=== PATIENT | male | born 1945 | race Caucasian/White ===

== ENCOUNTER 2016-11-16 19:13 | Inpatient (IN) | payer OTHER, MEDICARE ==
[~2016-11-16] VITALS: Ht 177.8 cm; Wt 111.8 kg
[2016-11-16 19:16] VITALS: BP 126/59; PULSE 86; RESP 20; TEMP 101; O2SAT 88
[2016-11-16 19:24] VITALS: BP 133/69; PULSE 90; RESP 20; TEMP 99.3; O2SAT 86
[2016-11-16 19:34] VITALS: RESP 20; O2SAT 86
[2016-11-16] MEDS ORDERED: METF500T PO (19:49)
[2016-11-16] MEDS ORDERED: METO100T PO (19:49)
[2016-11-16] MEDS ORDERED: POTA10TA15 PO (19:49)
[2016-11-16] MEDS ORDERED: AMLO10TA2 PO (19:49)
[2016-11-16] MEDS ORDERED: OMEP20TA PO (19:49)
[2016-11-16] MEDS ORDERED: HYDR50TA3 PO (19:49)
[2016-11-16] MEDS ORDERED: GLIP5TAB8 PO (19:49)
[2016-11-16] MEDS ORDERED: PRIM50TA5 PO ×2 (19:49)
[2016-11-16] MEDS ORDERED: GABA100C4 PO (19:49)
[2016-11-16] MEDS ORDERED: MONT10TA4 PO (19:49)
[2016-11-16] MEDS ORDERED: HYDR25TA35 PO (19:49)
--- NOTE | 2016-11-16 19:53 | PD ---
HPI Chief Complaint: Respiratory Symptoms Time Seen by Provider: 19:48 Travel History International Travel<30 days: No Contact w/Intl Traveler<30days: No Traveled to known affect area: No History of Present Illness HPI 71-year-old male that presents to the ED for evaluation of fever, cough and congestion. Patient states that he's had this since Saturday. Since Saturday his been having cough and runny nose as well as feeling unwell. Per patient she feels like "crap". Patient states that he has body aches all over. Patient was given Tylenol before coming to the ED. Patient states that he feels short of breath as well. Per patient he has difficulty taking deep breaths secondary to the cough as every time he takes a deep breath he gets more cough. He denies any chest pain. He denies abdominal pain. Nausea or vomiting. Patient denies any recent sick contacts but per he was in contact with a family member who had cold-like symptoms recently. Patient denies having a history of COPD or asthma but does state that he has bronchitis on occasion and uses inhalers for this. He has allergies to ibuprofen and lisinopril. He states that his body aches or 8 out of 10. Throughout. Mainly on the muscles. States that the only recent travel he did was to [place] recently. PFSH Past Medical History High Cholesterol: Yes Diabetes: Yes Patient Takes Glucophage: Yes Diminished Hearing: No GERD: Yes Hypertension: Yes Respiratory: Yes (bronchitis) Triglycerides - High: Yes Past Surgical History Surgical History: No Previous Surgery Other Surgery: Yes (finger skin graft) Social History Alcohol Use: Yes (beer) Tobacco Use: Yes (chewing tobacco, quit 50 yrs ago) Substance Use: No Allergies-Medications (Allergen,Severity, Reaction): Coded Allergies: Lisinopril (Verified Allergy, Severe, Swelling, 11/16/16) Ibuprofen (Verified Adverse Reaction, Intermediate, Cramping, 11/16/16) Reported Meds & Prescriptions Reported Meds & Active Scripts Active Reported Potassium Chloride Microencaps 10 Meq Tab 10 Meq PO DAILY Montelukast (Montelukast Sodium) 10 Mg Tab 10 Mg PO DAILY Primidone 50 Mg Tab 100 Mg PO DAILY@0600 Primidone 50 Mg Tab 50 Mg PO HS Hydrochlorothiazide 50 Mg Tab 50 Mg PO DAILY Glipizide 5 Mg Tab 5 Mg PO DAILY Take 30 minutes before a meal Amlodipine (Amlodipine Besylate) 10 Mg Tab 10 Mg PO DAILY Omeprazole 20 Mg Tab 20 Mg PO BID Hydralazine (Hydralazine HCl) 25 Mg Tab 25 Mg PO BID Take with a meal Gabapentin 100 Mg Cap 100 Mg PO BID Metformin (Metformin HCl) 500 Mg Tab 500 Mg PO BIDPC With meals Metoprolol Tartrate 100 Mg Tab 100 Mg PO BID Review of Systems General / Constitutional: Positive: Fever, Chills Eyes: No: Diploplia, Blurred Vision, Photophobia, Drainage, Redness, Foreign Body Sensation, Pain, Tearing, Blind Spots, Visual changes, Blindness, Other HENT: Positive: Headaches, Sore Throat, Congestion, No: Vertigo, Lightheadedness, Rhinitis, Rhinorrhea, Nosebleed, Neck Stiffness, Neck Pain, Masses, Gingival Bleeding, Dental Difficulties, Ear Discharge, Earache, Other Cardiovascular: No: Chest Pain or Discomfort, Palpitations, Irregular Rhythm, Tachycardia, Diaphoresis, Syncope, Dyspnea on exertion, Varicosities, Edema, Cyanosis, Varicosities, Phlebitis, Claudication, Other Respiratory: Positive: Cough, Shortness of Breath, Wheezing, No: Sneezing, Orthopnea, Hemoptysis, Stridor, Night Sweats, Pleuritic Pain, Other Gastrointestinal: No: Nausea, Vomiting, Diarrhea, Abdominal Pain, Hematemesis, Hematochezia, Constipation, Changes in Bowel Habits, Indigestion, Dysphagia, Loss of Appetite, Other Genitourinary: No: Urgency, Frequency, Dysuria, Nocturia, Hematuria, Decreased Urinary Output, Oliguria, Hesitancy, Dribbling, Incontinence, Pelvic Pain, Flank Pain, Dyspareunia, Discharge, Dysmenorrhea, Menorrhagia, Metorrhagia, Vaginal Bleeding, Other Musculoskeletal: Positive: Myalgias, No: Arthralgias, Limited ROM, Weakness, Cramping, Edema, Pain, Atrophy, Other Skin: No Rash, No Itching, No Dryness, No Lumps, No Hives, No Change in Pigmentation, No Change in nails, No Alopecia, No Lesions, No Breast Lumps, No Breast Tenderness, No Breast Swelling, No Other Neurologic: No: Weakness, Dizziness, Syncope, Focal Abnormalities, Coordination Problem, Tremor, Ataxia, Headache, Change in Mentation, Slurred Speech, Paresthesia, Incontinence, Seizures, Sensory Disturbance, Other Psychiatric: No: Anxiety, Depression, Suicidal Ideations, Disorder of Thought, Mood Disorder, Substance Abuse, Homicidal Ideation, Other Endocrine: No: Heat Intolerance, Cold Intolerance, Polyuria, Polydipsia, Other Hematologic/Lymphatic: No: Easy Bruising, Lymph Node Enlargement, Other Physical Exam Narrative GENERAL: Well-nourished, well-developed patient in no apparent distress. SKIN: Warm and dry. HEAD: Atraumatic. Normocephalic. EYES: Pupils equal and round reactive to light and accommodation. No scleral icterus. No injection or drainage. ENT: No nasal bleeding or discharge. Mucous membranes pink and moist. TMs are clear with no sign of infection or perforation. No mastoid tenderness. Ear canals are intact bilaterally. No lymphadenopathy. Nostril mucosa is red and moist with clear mucus noted. No sinus tenderness to palpation noted. Tonsils are not enlarged or swollen. No ulvua Deviation. Tongue is midline. NECK: Trachea midline. No JVD. No meningeal signs noted CARDIOVASCULAR: Regular rate and rhythm. RESPIRATORY: No accessory muscle use. Clear to auscultation. Breath sounds equal bilaterally. GASTROINTESTINAL: Abdomen soft, non-tender, nondistended. Hepatic and splenic margins not palpable. MUSCULOSKELETAL: Extremities without clubbing, cyanosis, or edema. No obvious deformities. NEUROLOGICAL: Awake and alert. No obvious cranial nerve deficits. Motor grossly within normal limits. Five out of 5 muscle strength in the arms and legs. Normal speech. PSYCHIATRIC: Appropriate mood and affect; insight and judgment normal. Data Data Last Documented VS Vital Signs Date Time Temp Pulse Resp B/P Pulse Ox O2 Delivery O2 Flow Rate FiO2 11/16/16 19:34 20 86 Room Air 11/16/16 19:33 4 11/16/16 19:24 99.3 90 133/69 Orders Complete Blood Count With Diff (11/16/16 19:26) Basic Metabolic Panel (Bmp) (11/16/16 19:26) Prothrombin Time / Inr (Pt) (11/16/16 19:26) Act Partial Throm Time (Ptt) (11/16/16 19:26) Arterial Blood Gas (Abg) (11/16/16 19:26) Blood Culture (11/16/16 19:26) Sputum Culture And Gram Stain (11/16/16 19:26) Influenzae A/B Antigen (11/16/16 19:26) Chest, Single Ap (11/16/16 19:26) Iv Access Insert/Monitor (11/16/16 19:26) Ecg Monitoring (11/16/16 19:26) Oxygen Administration (11/16/16 19:26) Oximetry (11/16/16 19:26) Ceftriaxone Inj (Rocephin Inj) (11/16/16 20:00) Azithromycin Inj (Zithromax Inj) (11/16/16 20:00) Ct Pulmonary Angiogram (11/16/16 ) Sodium Chlor 0.9% 1000 Ml Inj (Ns 1000 M (11/16/16 20:20) Potassium Cl 40 Meq/30 Ml Liq (Kcl 40 Me (11/16/16 20:30) Lactic Acid (11/16/16 20:28) Sodium Chlor 0.9% 1000 Ml Inj (Ns 1000 M (11/16/16 20:30) Iohexol 350 Inj (Omnipaque 350 Inj) (11/16/16 20:36) Admit Order (Ed Use Only) (11/16/16 21:33) Labs Laboratory Tests Test 11/16/16 11/16/16 19:30 20:00 White Blood Count 15.0 TH/MM3 Red Blood Count 4.37 MIL/MM3 Hemoglobin 13.9 GM/DL Hematocrit 40.4 % Mean Corpuscular Volume 92.4 FL Mean Corpuscular Hemoglobin 31.8 PG Mean Corpuscular Hemoglobin 34.4 % Concent Red Cell Distribution Width 14.2 % Platelet Count 212 TH/MM3 Mean Platelet Volume 9.4 FL Neutrophils (%) (Auto) 81.4 % Lymphocytes (%) (Auto) 8.6 % Monocytes (%) (Auto) 9.8 % Eosinophils (%) (Auto) 0.0 % Basophils (%) (Auto) 0.2 % Neutrophils # (Auto) 12.2 TH/MM3 Lymphocytes # (Auto) 1.3 TH/MM3 Monocytes # (Auto) 1.5 TH/MM3 Eosinophils # (Auto) 0.0 TH/MM3 Basophils # (Auto) 0.0 TH/MM3 CBC Comment DIFF FINAL Differential Comment Prothrombin Time 11.8 SEC Prothromb Time International 1.1 RATIO Ratio Activated Partial 35.5 SEC Thromboplast Time Sodium Level 132 MEQ/L Potassium Level 3.0 MEQ/L Chloride Level 93 MEQ/L Carbon Dioxide Level 28.4 MEQ/L Anion Gap 11 MEQ/L Blood Urea Nitrogen 23 MG/DL Creatinine 1.60 MG/DL Estimat Glomerular Filtration 43 ML/MIN Rate Random Glucose 134 MG/DL Calcium Level 8.4 MG/DL Blood Gas Puncture Site LT RADIAL Blood Gas Patient Temperature 98.6 Blood Gas HCO3 24 mmol/L Blood Gas Base Excess 1.0 mmol/L Blood Gas Oxygen Saturation 89 % Arterial Blood pH 7.49 Arterial Blood Partial 32 mmHg Pressure CO2 Arterial Blood Partial 58 mmHG Pressure O2 Arterial Blood Oxygen Content 17.0 Vol % Arterial Blood 2.0 % Carboxyhemoglobin Arterial Blood Methemoglobin 1.9 % Blood Gas Hemoglobin 13.6 G/DL Blood Gas Inspired Oxygen 21 % [facility] Medical Decision Making Medical Screen Exam Complete: Yes Emergency Medical Condition: Yes Medical Record Reviewed: Yes Interpretation(s) CBC & BMP Diagram 11/16/16 19:30 Last Impressions Chest X-Ray 11/16/16 1926 Signed Impressions: Service Date/Time: Wednesday, November 16, 2016 19:49 - CONCLUSION: Right upper lobe consolidating airspace disease. Sacha Walls MD CT Angiography 11/16/16 0000 Signed Impressions: Service Date/Time: Wednesday, November 16, 2016 20:34 - CONCLUSION: No evidence of pulmonary embolism. Consolidating airspace disease in the right upper lobe. Mild subsegmental air space disease in both lower lobes. Sacha Walls MD ABG shows hypoxia. Differential Diagnosis Pneumonia versus hypoxia versus bronchitis versus sepsis versus viral illness versus influenza Narrative Course 71-year-old male that presents to the ED for evaluation of cough and runny nose as well as shortness of breath. Patient was properly examined and was found to have signs and symptoms concerning for pneumonia versus severe respiratory illness. Patient does appear to be hypoxic on exam signing and 86 with no oxygen, improved with oxygen. Patient was given breathing treatments. Case was discussed in my attending who agrees with plan. Patient was started on labs and imaging. Labs and imaging showed signs and symptoms consistent what appears to be severe pneumonia. Patient does appear to have some dehydration as well. Case was discussed with my attending who agrees the patient requires admission for his severe infection. Mainly secondary to his hypoxia. This was discussed with the patient and who are in agreement with plan. MERT was paged and Dr. Heart agrees to admission. Sepsis Criteria SIRS Criteria (2 or more): Temp > 100.9 or < 96.8, WBC > 22039, < 4000 or > 10 % bands Sepsis Criteria (SIRS+source): Infect source susp/known Criteria Outcome: Meets sepsis criteria Diagnosis Primary Impression: Pneumonia Qualified Code: J18.1 - Pneumonia of right upper lobe due to infectious organism Additional Impressions: Acute kidney injury Sepsis Qualified Code: A41.9 - Sepsis, due to unspecified organism Admitting Information Admitting Physician Requests: Admit Micah Johnson Nov 16, 2016 19:53 Micah Johnson Nov 16, 2016 19:53
[2016-11-16 19:57] LABS: AUTOMATED NEUTROPHIL # 12.2 TH/MM3 (1.8-7.7); BASOPHIL % 0.2 % (0.0-2.0); HEMATOCRIT 40.4 % (39.0-51.0); HEMO FLAGS DIFF FINAL; LYMPH % 8.6 % (9.0-44.0); LYMPHOCYTE # 1.3 TH/MM3 (1.0-4.8); MEAN CELL VOLUME 92.4 FL (80.0-100.0); MEAN CORPUSCULAR HEMOGLOBIN 31.8 PG (27.0-34.0); MEAN CORPUSCULAR HGB CONC 34.4 % (32.0-36.0); MONO % 9.8 % (0.0-8.0); NEUT % 81.4 % (16.0-70.0); PLATELET COUNT 212 TH/MM3 (150-450); RED BLOOD COUNT 4.37 MIL/MM3 (4.50-5.90); RED CELL DISTRIBUTION WIDTH 14.2 % (11.6-17.2)
[2016-11-16] MEDS ORDERED: AZITHROMYCIN INJ 500 MG in SODIUM CHLOR 0.9% 250 ML INJ 250 ML IV ONE (20:00)
[2016-11-16] MEDS ORDERED: cefTRIAXone INJ 1,000 MG in SODIUM CHLORIDE 0.9% INJ 25 ML IV ONE (20:00)
[2016-11-16 20:06] LABS: APTT (PATIENT) 35.5 SEC (24.3-30.1); INTERNATIONAL NORMALIZED RATIO 1.1 RATIO; PROTHROMBIN TIME - PATIENT 11.8 SEC (9.8-11.6)
[2016-11-16 20:11] LABS: BLOOD GAS HCO3 24 mmol/L (22-26); BLOOD GAS METHEMOGLOBIN 1.9 % (0-2); BLOOD GAS O2 HGB SATURATION 89 % (90-100); BLOOD GAS PCO2 32 mmHg (38-42); BLOOD GAS PO2 58 mmHG (61-120); BLOOD GAS TOTAL HGB 13.6 G/DL (12.0-16.0); TEMP CORR TO 98.6
[2016-11-16 20:13] LABS: CRITICAL VALUE YES; FIO2 21 %
[2016-11-16 20:13] LABS: BICARBONATE 28.4 MEQ/L (21.0-32.0)
[2016-11-16 20:14] LABS: DRAW SITE LT RADIAL; NUMBER OF ARTERIAL PUNCTURES 1; STAT YES; ULNAR PULSE PRESENT
[2016-11-16] MEDS ORDERED: SODIUM CHLOR 0.9% 1000 ML INJ 1,000 ML IV SCH (20:20)
--- NOTE | 2016-11-16 20:28 | RADRPT ---
EXAM DATE/TIME: 11/16/2016 19:49 [facility] COMPARISON: No previous studies available for comparison. INDICATIONS : Cough, Fever. MEDICAL HISTORY : Hypertension. Diabetes mellitus type II. SURGICAL HISTORY : None. ENCOUNTER: Initial ACUITY: 3 days PAIN SCORE: 0/10 LOCATION: chest FINDINGS: A single view of the chest demonstrates consolidating airspace disease in the right upper lobe. Left lung is clear. Heart is normal in size. CONCLUSION: Right upper lobe consolidating airspace disease. Sacha Walls MD on November 16, 2016 at 20:25 Board Certified Radiologist. This report was verified electronically.
[2016-11-16] MEDS ORDERED: SODIUM CHLOR 0.9% 1000 ML INJ 1,000 ML IV ONE (20:30)
[2016-11-16] MEDS ORDERED: POTASSIUM CL 40 MEQ/30 ML LIQ UDC PO ONE (20:30)
[2016-11-16] MEDS ORDERED: IOHEXOL 350 MG/ML 10 ML VIAL (for RAD DIAG) IV ONE (20:36)
--- NOTE | 2016-11-16 21:08 | RADRPT ---
EXAM DATE/TIME: 11/16/2016 20:34 [facility] COMPARISON: No previous studies available for comparison. INDICATIONS : Shortness of breath, hemoptysis with recent travel. IV CONTRAST: 73 cc Omnipaque 350 (iohexol) IV RADIATION DOSE: 23.48 CTDIvol (mGy) MEDICAL HISTORY : Hypertension. Gastroesophageal reflux disease. Diabetes mellitus type 2. SURGICAL HISTORY : None. ENCOUNTER: Initial ACUITY: 1 day PAIN SCALE: 0/10 LOCATION: chest TECHNIQUE: Volumetric scanning of the chest was performed using a pulmonary embolism protocol MIP images were re constructed. Using automated exposure control and adjustment of the mA and/or kV according to patien t size, radiation dose was kept as low as reasonably achievable to obtain optimal diagnostic quality images. FINDINGS: PULMONARY ARTERIES: No filling defects are seen in the pulmonary arteries through the segmental level. LUNGS: Consolidating airspace disease is identified in the right upper lobe. There some minimal airspace dis ease in both lung bases as well. PLEURAE: There is no pleural thickening or pleural effusion. MEDIASTINUM: There is good visualization of the great vessels of the middle mediastinum. No evidence of mediastin al or hilar adenopathy/mass. MUSCULOSKELETAL: Within normal limits for patient age. MISCELLANEOUS: The visualized upper abdominal organs demonstrate no acute abnormality. CONCLUSION: No evidence of pulmonary embolism. Consolidating airspace disease in the right upper lobe. Mild subsegmental air space disease in both lower lobes. Sacha Walls MD on November 16, 2016 at 21:02 Board Certified Radiologist. This report was verified electronically.
--- NOTE | 2016-11-16 21:40 | HHI.HP ---
HPI Service [facility] Primary Care Physician [facility] Admission Diagnosis pneumonia, sepsis, kidney injury Diagnoses: (1) Sepsis Diagnosis: Principal (2) PNA (pneumonia) Diagnosis: Principal (3) Hypokalemia Diagnosis: Principal (4) Renal insufficiency Diagnosis: Principal (5) DM (diabetes mellitus) Diagnosis: Principal Travel History International Travel<30 Days: No Contact w/Intl Traveler <30 Da: No Traveled to Known Affected Are: No History of Present Illness This is a 71-year-old male with a PMH of HTN, COPD, Hyperlipidemia and DM was brought to the ER with complaints of cough, SOB and fever at home of 100.3. States symptoms started approx 3 days ago w/ generalized malaise, now progressively worse. On arrival, BP 126/59, HR 86, O2 sat 88% on RA, Temp 101.0. WBC 15. K+ 3.0. Creatinine 1.60, no previous labs for comparison. Lactic Acid 1.6. CXR w/ RUL consolidation. CTA Chest w/ no PE, RUL consolidation present. S/p Blood/Sputum Culture in ER and Rocephin/Zithro. Pt currently without complaints. Review of Systems Except as stated in HPI: all other systems reviewed are Neg ROS: 14 point review of systems otherwise negative. Past Family Social History Past Medical History PMH: HTN, COPD, Hyperlipidemia and DM Past Surgical History PAST SURGICAL HISTORY: Graft Finger Allergies: Coded Allergies: Lisinopril (Verified Allergy, Severe, Swelling, 11/16/16) Ibuprofen (Verified Adverse Reaction, Intermediate, Cramping, 11/16/16) Family History PAST FAMILY HISTORY: Reviewed. No h/o DM or CAD Social History PAST SOCIAL HISTORY: Occasional beer. Negative for tobacco or drugs. Physical Exam Vital Signs Vital Signs Date Time Temp Pulse Resp B/P Pulse Ox O2 Delivery O2 Flow Rate FiO2 11/16/16 19:34 20 86 Room Air 11/16/16 19:33 93 Nasal Cannula 4 11/16/16 19:24 99.3 90 20 133/69 86 11/16/16 19:16 101.0 86 20 126/59 88 Room Air Physical Exam PE: GENERAL: Very pleasant elderly white male in no acute distress. at bedside. HEENT: PERRLA, EOMI. No scleral icterus or conjunctival pallor. No lid lag or facial droop. Facial flushing. CARDIOVASCULAR: Regular rate and rhythm. No obvious murmurs to auscultation. No chest tenderness to palpation. RESPIRATORY: No obvious rhonchi or wheezing. Clear to auscultation. Breath sounds equal bilaterally. GASTROINTESTINAL: Abdomen soft, non-tender, nondistended. BS normal. MUSCULOSKELETAL: Extremities without clubbing, cyanosis, or edema. No obvious deformities. NEUROLOGICAL: Awake, alert and oriented x4. No focal neurologic deficits. Moving both upper and lower extremities spontaneously. Laboratory Laboratory Tests Test 11/16/16 11/16/16 19:30 20:00 White Blood Count 15.0 Red Blood Count 4.37 Hemoglobin 13.9 Hematocrit 40.4 Mean Corpuscular Volume 92.4 Mean Corpuscular Hemoglobin 31.8 Mean Corpuscular Hemoglobin 34.4 Concent Red Cell Distribution Width 14.2 Platelet Count 212 Mean Platelet Volume 9.4 Neutrophils (%) (Auto) 81.4 Lymphocytes (%) (Auto) 8.6 Monocytes (%) (Auto) 9.8 Eosinophils (%) (Auto) 0.0 Basophils (%) (Auto) 0.2 Neutrophils # (Auto) 12.2 Lymphocytes # (Auto) 1.3 Monocytes # (Auto) 1.5 Eosinophils # (Auto) 0.0 Basophils # (Auto) 0.0 CBC Comment DIFF FINAL Differential Comment Prothrombin Time 11.8 Prothromb Time International 1.1 Ratio Activated Partial 35.5 Thromboplast Time Sodium Level 132 Potassium Level 3.0 Chloride Level 93 Carbon Dioxide Level 28.4 Anion Gap 11 Blood Urea Nitrogen 23 Creatinine 1.60 Estimat Glomerular Filtration 43 Rate Random Glucose 134 Calcium Level 8.4 Blood Gas Puncture Site LT RADIAL Blood Gas Patient Temperature 98.6 Blood Gas HCO3 24 Blood Gas Base Excess 1.0 Blood Gas Oxygen Saturation 89 Arterial Blood pH 7.49 Arterial Blood Partial 32 Pressure CO2 Arterial Blood Partial 58 Pressure O2 Arterial Blood Oxygen Content 17.0 Arterial Blood 2.0 Carboxyhemoglobin Arterial Blood Methemoglobin 1.9 Blood Gas Hemoglobin 13.6 Blood Gas Inspired Oxygen 21 Date/Time Procedure Status Source Growth 11/16/16 19:38 Influenza Types A,B Antigen (CHEN) Received Nasal Washing Pending 11/16/16 19:30 Aerobic Blood Culture Received Blood Peripheral Pending 11/16/16 19:30 Anaerobic Blood Culture Received Blood Peripheral Pending 11/16/16 19:20 Gram Stain Received Sputum Expectorated Sputum Pending 11/16/16 19:20 Sputum Culture Received Sputum Expectorated Sputum Pending Result Diagram: 11/16/16192911/16/161929 Assessment and Plan Problem List: (1) Sepsis ICD Code: A41.9 Status: Acute (2) PNA (pneumonia) ICD Code: J18.9 Status: Acute (3) Renal insufficiency ICD Code: N28.9 Status: Acute (4) Hypokalemia ICD Code: E87.6 Status: Acute (5) DM (diabetes mellitus) ICD Code: E11.9 Status: Acute Assessment and Plan A/P: 1. Sepsis: Temp 101.0, HR 90, RR 20, WBC 15, Source-PNA. S/p Blood/Sputum Cultures, IV Rocephin/Zithro in ER. Will follow up cultures. Influenza pending. Continue w/ IV Abx, IVF. 2. PNA: CXR w/ RUL consolidation, CTA Pulm negative for PE, also noted to have RUL consolidation and mild bibasilar airspace disease, images reviewed by me. Continue w/ IV Abx as above. Symbicort, DuoNeb, Mucinex. 3. Hypokalemia: K+ 3.0, s/p replacement in ER, will recheck and replace as needed. 4. Renal Insufficiency: Creatinine 1.60, no previous labs for comparison. Check U/a, IVF for hydration, repeat labs in am. 5. DM: Sliding scale w/ Accu-Cheks. Check Hgb A1c. Hold Metformin in light of sepsis and renal insufficiency. 6. DVT Prophylaxis: SCD/Teds. 7. Social work for d/c planning as needed. 8. Case discussed w/ ER physician at length. Physician Certification 2 Midnight Certification Type: Admission for Inpatient Services Order for Inpatient Services The services are ordered in accordance with Medicare regulations or non- Medicare payer requirements, as applicable. In the case of services not specified as inpatient-only, they are appropriately provided as inpatient services in accordance with the 2-midnight benchmark. Estimated LOS (days): 2 days is the estimated time the patient will need to remain in the hospital, assuming treatment plan goals are met and no additional complications. Post-Hospital Plan: Not yet determined Problem Qualifiers (1) Sepsis: Qualified Code: A41.9 - Sepsis, due to unspecified organism Patricia Heart MD Nov 16, 2016 21:39
[2016-11-16] MEDS ORDERED: DEXTROSE 50% IN WATER 50 ML VIAL(D50) IV PUSH PRN (21:45)
[2016-11-16] MEDS ORDERED: GLUCAGON 1 MG/ML VIAL OTHER PRN (21:45)
[2016-11-16] MEDS ORDERED: ONDANSETRON HCL 4 MG/2 ML VIAL IVP PRN (21:45)
[2016-11-16] MEDS ORDERED: BISACODYL 10 MG SUPP PR PRN (21:45)
[2016-11-16] MEDS ORDERED: SODIUM CHLORIDE 0.9% FLUSH 5 ML FLUSH FLUSH PRN (21:45)
[2016-11-16] MEDS ORDERED: ACETAMINOPHEN/HYDROcodone 325 MG/5 MG TAB PO PRN (21:45)
[2016-11-16] MEDS ORDERED: MORPHINE SULFATE 4 MG/ML INJ IV PRN (21:45)
[2016-11-16 22:00] VITALS: BP 124/56; PULSE 79; RESP 18; O2SAT 96
[2016-11-16] MEDS: SODIUM CHLOR 0.9% 1000 ML INJ 1,000 ML IV SCH (22:00)
[2016-11-16] MEDS: BUDESONIDE-FORMOTEROL 160/4.5 MCG INHALER INH SCH (22:00)
[2016-11-17] VITALS (13 sets, daily range): BP systolic 111–131; BP diastolic 56–86; PULSE 82–106; RESP 20–34; TEMP 99.3–102.7; O2SAT 86–95
[2016-11-17] MEDS: ACETAMINOPHEN 325 MG TAB PO PRN ×3 (01:59→19:42)
[2016-11-17] MEDS: RESP: ALBUTEROL 2.5 MG/IPRATROPIUM 0.5 MG NEB (PRN) NEB (02:16)
[2016-11-17] MEDS ORDERED: diphenhydrAMINE HCL 25 MG CAP PO ONE (02:30)
[2016-11-17] MEDS: INSULIN ASPART SUPPLEMENTAL SCALE SQ SCH ×4 (05:19→21:10)
[2016-11-17] MEDS: PRIMIDONE 50 MG TAB PO SCH ×2 (05:19→22:53)
[2016-11-17 07:20] LABS: AUTOMATED NEUTROPHIL # 7.9 TH/MM3 (1.8-7.7); BASOPHIL % 0.2 % (0.0-2.0); HEMATOCRIT 34.8 % (39.0-51.0); HEMO FLAGS DIFF FINAL; LYMPH % 13.3 % (9.0-44.0); LYMPHOCYTE # 1.4 TH/MM3 (1.0-4.8); MEAN CELL VOLUME 92.9 FL (80.0-100.0); MEAN CORPUSCULAR HEMOGLOBIN 31.9 PG (27.0-34.0); MEAN CORPUSCULAR HGB CONC 34.4 % (32.0-36.0); MONO % 10.1 % (0.0-8.0); NEUT % 76.4 % (16.0-70.0); PLATELET COUNT 174 TH/MM3 (150-450); RED BLOOD COUNT 3.74 MIL/MM3 (4.50-5.90); RED CELL DISTRIBUTION WIDTH 14.4 % (11.6-17.2); WHITE BLOOD COUNT 10.4 TH/MM3 (4.0-11.0)
[2016-11-17 07:33] LABS: ALKALINE PHOSPHATASE 39 U/L (45-117); ALT (GPT) 20 U/L (12-78); ANION GAP 11 MEQ/L (5-15); AST (GOT) 24 U/L (15-37); BICARBONATE 24.8 MEQ/L (21.0-32.0); BLOOD UREA NITROGEN 18 MG/DL (7-18); CHLORIDE 102 MEQ/L (98-107); GLOMERULAR FILTRATION RATE 64 ML/MIN (>89); SODIUM (NA) 138 MEQ/L (136-145); TOTAL BILIRUBIN ADULT 0.5 MG/DL (0.2-1.0)
[2016-11-17 07:39] LABS: POTASSIUM 2.9 MEQ/L (3.5-5.1)
[2016-11-17] MEDS: RESP: ALBUTEROL 2.5 MG/IPRATROPIUM 0.5 MG NEB (SCH) NEB ×4 (07:47→20:12)
[2016-11-17] MEDS: PANTOPRAZOLE SOD 20 MG DELAYED RELEASE TAB PO SCH ×2 (08:23→20:41)
[2016-11-17] MEDS: MONTELUKAST SODIUM 10 MG TAB PO SCH (08:23)
[2016-11-17] MEDS: METOPROLOL TARTRATE 100 MG TAB PO SCH ×2 (08:23→20:41)
[2016-11-17] MEDS: hydrALAZINE HCL 25 MG TAB PO SCH ×2 (08:23→20:41)
[2016-11-17] MEDS: guaiFENesin E.R. 600 MG TAB PO SCH ×2 (08:23→20:41)
[2016-11-17] MEDS: GABAPENTIN 100 MG CAP PO SCH ×2 (08:23→22:49)
[2016-11-17] MEDS: POTASSIUM CHLOR 20 MEQ PREMIX 100 ML IV SCH ×2 (08:24→11:24)
[2016-11-17] MEDS: SODIUM CHLORIDE 0.9% FLUSH 5 ML FLUSH FLUSH SCH ×2 (08:25→20:15)
[2016-11-17] MEDS: BUDESONIDE-FORMOTEROL 160/4.5 MCG INHALER INH SCH ×2 (08:25→20:51)
[2016-11-17] MEDS: SODIUM CHLOR 0.9% 1000 ML INJ 1,000 ML IV SCH ×2 (08:32→17:39)
[2016-11-17] MEDS ORDERED: MAGNESIUM SULFATE 1 GM PREMIX 100 ML IV ONE (09:15)
[2016-11-17] MEDS ORDERED: BENZONATATE 100 MG CAP PO PRN (09:15)
--- NOTE | 2016-11-17 09:16 | HHI.PR ---
Subjective Remarks Follow-up for pneumonia with cough/shortness of breath/fevers. Patient reports still feeling miserable today. He reports continued fevers, Tmax 102.2 this morning. He reports continued productive cough and mild shortness of breath. Denies chest pains. Denies wheezing. The patient denies any prior diagnosis of COPD. He quit smoking in 1968, smoked 1 PPD, denies any significant exposure to second hand smoke. Discussed that he will need to get PFTs done once the pneumonia is treated. He plans to return to [place] on December 13 and will talk with his PCP about seeing a national account director. Objective Vitals Vital Signs Date Time Temp Pulse Resp B/P Pulse Ox O2 Delivery O2 Flow Rate FiO2 11/17/16 07:49 92 Nasal Cannula 6.00 11/17/16 07:16 102.2 102 22 124/60 89 11/17/16 04:17 100.3 82 20 111/56 11/17/16 03:02 16 11/17/16 02:12 91 Nasal Cannula 4.00 11/17/16 01:51 100.3 94 20 131/60 90 11/17/16 01:35 97 11/16/16 22:00 79 18 124/56 96 Nasal Cannula 4 11/16/16 19:34 20 86 Room Air 11/16/16 19:33 93 Nasal Cannula 4 11/16/16 19:24 99.3 90 20 133/69 86 11/16/16 19:16 101.0 86 20 126/59 88 Room Air I/O 11/16/16 11/16/16 11/16/16 11/17/16 11/17/16 11/17/16 07:00 15:00 23:00 07:00 15:00 23:00 Output Total 600 ml Balance -600 ml Output Urine Total 600 ml Result Diagram: 11/17/16 0458 11/17/16 0458 Imaging Last Impressions Chest X-Ray 11/16/16 1926 Signed Impressions: Service Date/Time: Wednesday, November 16, 2016 19:49 - CONCLUSION: Right upper lobe consolidating airspace disease. Sacha Walls MD CT Angiography 11/16/16 0000 Signed Impressions: Service Date/Time: Wednesday, November 16, 2016 20:34 - CONCLUSION: No evidence of pulmonary embolism. Consolidating airspace disease in the right upper lobe. Mild subsegmental air space disease in both lower lobes. Sacha Walls MD Objective Remarks GENERAL: Well-nourished, well-developed pleasant elderly male patient in NAD. SKIN: Warm and dry. No rash. HEENT: Normocephalic. Atraumatic. Pupils equal and round. No scleral icterus. No injection or drainage. Mucous membranes pink and moist. NECK: Supple. Trachea midline. CARDIOVASCULAR: Tachycardic, regular rhythm. S1, S2 noted. No murmur appreciated. RESPIRATORY: No accessory muscle use. Breath sounds diminished at bilateral bases, otherwise clear to auscultation. Breath sounds equal bilaterally. GASTROINTESTINAL: Abdomen soft, non-tender, nondistended. Normoactive bowel sounds x4. MUSCULOSKELETAL: No obvious deformities. Extremities without clubbing, cyanosis , or edema. NEUROLOGICAL: Awake and alert. No obvious cranial nerve deficits. Motor grossly within normal limits. Normal speech. PSYCHIATRIC: Appropriate mood and affect; insight and judgment normal. Medications and IVs Current Medications Medications (Trade) Dose Ordered Sig/Theresa Route Start Time Stop Time Status Last Admin Ceftriaxone Sodium 1000 mg/ Sodium Chloride 100 ml @ 200 mls/hr Q24H IV 11/17/16 20:00 (Zithromax Inj/ NS 250 ml Inj) 250 ml @ 250 mls/hr Q24H IV 11/17/16 21:00 (Mucinex Er) 600 mg BID PO 11/17/16 09:00 11/17/16 08:23 (Symbicort 160-4.5 Inh) 2 puff Q12HR INH 11/16/16 21:45 11/17/16 08:25 (D50w (Vial) Inj) 25 ml UNSCH PRN IV PUSH 11/16/16 21:45 Glucagon 1 mg 1 mg UNSCH PRN OTHER 11/16/16 21:45 (NS 1000 ml Inj) 1,000 ml @ 100 mls/hr Q10H IV 11/16/16 21:31 11/17/16 08:32 (NS Flush) 2 ml UNSCH PRN FLUSH 11/16/16 21:45 (NS Flush) 2 ml BID FLUSH 11/17/16 09:00 (Zofran Inj) 4 mg Q6H PRN IVP 11/16/16 21:45 (Dulcolax Supp) 10 mg DAILY PRN [place] 11/16/16 21:45 (Tylenol) 650 mg Q6H PRN PO 11/16/16 21:45 11/17/16 08:24 ([place] 5-325 Mg) 1 tab Q4H PRN PO 11/16/16 21:45 (Morphine Inj) 2 mg Q3H PRN IV 11/16/16 21:45 (Norvasc) 10 mg DAILY PO 11/17/16 09:00 11/17/16 08:23 (Neurontin) 100 mg BID PO 11/17/16 09:00 11/17/16 08:23 (Apresoline) 25 mg BID PO 11/17/16 09:00 11/17/16 08:23 (Lopressor) 100 mg BID PO 11/17/16 09:00 11/17/16 08:23 (Singulair) 10 mg DAILY PO 11/17/16 09:00 11/17/16 08:23 (Protonix) 20 mg BID PO 11/17/16 09:00 11/17/16 08:23 (Mysoline) 50 mg HS PO 11/17/16 21:00 Primidone 100 mg 100 mg DAILY@0600 PO 11/17/16 06:00 11/17/16 05:19 (KCl 20 Meq Premix Inj) 100 ml @ 50 mls/hr Q2H IV 11/17/16 08:00 11/17/16 11:59 11/17/16 08:24 Urinary Catheter: No Vascular Central Line Catheter: No A/P Problem List: (1) Sepsis ICD Code: A41.9 Status: Acute (2) PNA (pneumonia) ICD Code: J18.9 Status: Acute (3) Renal insufficiency ICD Code: N28.9 Status: Acute (4) Hypokalemia ICD Code: E87.6 Status: Acute (5) DM (diabetes mellitus) ICD Code: E11.9 Status: Acute Assessment and Plan 71-year-old male with a PMH of HTN, COPD, Hyperlipidemia and DM was brought to the ER with complaints of cough, SOB and fever at home of 100.3. Sepsis: Tmax 102.2, HR 102, RR 22, WBC 15K, Source-PNA. Influenza Negative. Sputum and Blood Cultures pending. Lactic acid 1.6. Continue IV Rocephin/Zithro , IVF. Leukocytosis resolved, still with fevers, tachycardia, tachypnea. Acute Hypoxic Respiratory Failure: O2 sat 86% on room air upon arrival. Likely multifactorial with pneumonia and suspected COPD, see below. O2 as needed. Will likely need home O2 walk test prior to discharge. Community Acquired PNA: CXR w/ RUL consolidation, CTA Pulm negative for PE, + RUL consolidation and mild bibasilar airspace disease, images reviewed by me. Continue IV Rocephin/Azithro. Start Symbicort, DuoNeb, Mucinex. Tessalon prn cough. Suspected COPD: patient with hx of tobacco use. No formal diagnosis of COPD. Recommended patient have PFTs done as outpatient once pneumonia is treated. He will f/up with PCP and get referral to national account director when he returns to [place] later this month. Started on Symbicort. Duonebs q4h and prn. Hypokalemia: K+ 2.9, give IV KCl boluses and po KCl replacement. Mag 1.8, will give Mag Sulfate 1G IV x1 now. Repeat labs. CLEMENCIA: Creatinine 1.60, no previous labs for comparison. Check U/a, give IVF for hydration. Repeat labs today show improvement, Cr. 1.13. DM: Sliding scale w/ Accu-Cheks. Check Hgb A1c. Hold Metformin in light of sepsis and renal insufficiency. DVT Prophylaxis: SCD/Teds. Discussed with Dr. Reynoso. Discharge Planning Not yet ready for discharge. Anticipate d/c in 2-3 days. Attending Statement Attestation Patient seen and examined with Cheryl Rasmussen PA-C. The exam, history, and the medical decision-making described in the above note were completed with the assistance of the dictating practitioner. I attest that I had a [id number] encounter with the patient on the same day, and personally performed all of the history, exam, or medical decision making. Discussed case with her thoroughly after seeing the patient, reviewed and agreed with the plan. Please see addendum in History, Physical examination. See below for any errata/additional input: Patient not a lot of improvement, now having hemoptysis since yesterday, severe short of breath, tachypnea, nonrebreather. Denies any chest pain, no diarrhea no other source of infection. Able to speak in sentences but obviously in mild distress. Patient denies any B symptoms, worked in the , traveled to [place], stated for 11 months, no obvious exposure to tuberculosis but probably exposed to agent orange. Mild respiratory distress Borderline tachycardic, regular rhythm Decreased breath sounds bilaterally, no wheezing, no crackles, occasional rhonchi but not a lot Abdomen soft, nontender 1+ edema Switch ceftriaxone to Zosyn, start vancomycin, pickles, transfer to ICU for closer monitoring, repeat chest x-ray stat AP. Patient is full code. Check Legionella and Streptococcus antigen. Rapid flu negative. Check PPD. Problem Qualifiers (1) Sepsis: Qualified Code: A41.9 - Sepsis, due to unspecified organism Alejandra Rasmussen PA-C Nov 17, 2016 09:16 Azra Reynoso MD Nov 17, 2016 15:44
[2016-11-17 12:57] LABS: BLOOD, URINE SMALL (NEG); GLUCOSE,URINE NEG (NEG); KETONE, URINE NEG (NEG); MUCUS URINE FEW /lpf (OCC); NITRITE,URINE NEG (NEG); TRANSITIONAL EPI CELLS, URINE <1 /hpf; URINE COLOR YELLOW (YELLW/STRAW)
[2016-11-17 12:58] LABS: COMMENT (UR) CULT NOT INDICATED; CULTURE IF INDICATED CULT NOT INDICATED
[2016-11-17] MEDS ORDERED: Vancomycin Consult Pharmacy 1 EA OTHER SCH (15:45)
--- NOTE | 2016-11-17 16:06 | RADRPT ---
EXAM DATE/TIME: 11/17/2016 15:53 [facility] COMPARISON: CT PULMONARY ANGIOGRAM, November 16, 2016, 20:34. CHEST SINGLE AP, November 16, 2016, 19:49. INDICATIONS : Shortness of breath. MEDICAL HISTORY : Hypertension. Diabetes mellitus type II. SURGICAL HISTORY : None. ENCOUNTER: Initial ACUITY: 1 day PAIN SCORE: 0/10 LOCATION: Bilateral chest FINDINGS: Cardiomegaly. There is lobar consolidation in the right upper lobe increased from previous. Cardiomeg tatum. Left lung is clear. Right basilar airspace disease is also noted. No effusions. Osseous structur es are intact. CONCLUSION: Worsening appearance of the chest. Calvin Calero MD on November 17, 2016 at 16:04 Board Certified Radiologist. This report was verified electronically.
[2016-11-17 16:45] LABS: BICARBONATE 23.7 MEQ/L (21.0-32.0); POTASSIUM 3.3 MEQ/L (3.5-5.1)
[2016-11-17] MEDS ORDERED: TUBERCULIN, PPD 5 UNITS/0.1 ML SYRINGE ID ONE (17:00)
[2016-11-17 17:25] LABS: CALCIUM-PROTEIN CORRECTED 7.4 MG/DL (8.5-10.1)
[2016-11-17] MEDS: PIPERACIL-TAZO 4.5 GM PREMIX 100 ML IV SCH ×2 (17:39→22:49)
[2016-11-17] MEDS ORDERED: cefTRIAXone INJ 1,000 MG in SODIUM CHLORIDE 0.9% INJ 100 ML IV SCH (20:00)
[2016-11-17] MEDS: VANCOMYCIN INJ 1,750 MG in SODIUM CHLORID 0.9% 500 ML INJ 500 ML IV SCH (20:14)
[2016-11-17] MEDS ORDERED: POTASSIUM CHLORIDE 20 MEQ CONTROLLED RELEASE TAB PO ONE (21:00)
[2016-11-17] MEDS ORDERED: methylPREDNISolone SOD SUCC 125 MG/2 ML VIAL IV PUSH ONE (21:00)
[2016-11-17] MEDS: AZITHROMYCIN INJ 500 MG in SODIUM CHLOR 0.9% 250 ML INJ 250 ML IV SCH (21:19)
[2016-11-17] MEDS ORDERED: CALCIUM GLUCONATE INJ 1 GM in SODIUM CHLORIDE 0.9% INJ 100 ML IV ONE (22:00)
--- NOTE | 2016-11-17 23:11 | HHI.PR ---
Addendum to Inpatient Note Addendum Reason: Additional Documentation Additional Information Called by RN at 20:00 for patient having worsening SOB and o2sat 87%. I went and assessed patient, he states he feels like he cant catch his breath and he is tired. Assessment and plan Diminished breath sounds, on non rebreather, 02 sat 88% -solumedrol 125mg loading does given, 40mg then q6 -Cont duonebs q4 -EZpap Q4 -Incentive spirometer -Discussed with Dr. Rosas producer arborist manager on, and he suggested bipap and wean as tolerated Discussed plan with Lauren Rogers Nov 17, 2016 23:11
[2016-11-18] VITALS (9 sets, daily range): BP systolic 126–170; BP diastolic 59–67; PULSE 79–97; RESP 18–27; TEMP 98.4–99; O2SAT 85–94
[2016-11-18] MEDS: RESP: ALBUTEROL 2.5 MG/IPRATROPIUM 0.5 MG NEB (SCH) NEB ×7 (00:14→23:15)
[2016-11-18] MEDS ORDERED: guaiFENesin/DEXTROMETHORPHAN 200 MG/20 MG/10 ML CUP PO PRN (00:45)
[2016-11-18] MEDS ORDERED: FUROSEMIDE 20 MG/2 ML VIAL IV PUSH ONE (00:45)
[2016-11-18] MEDS ORDERED: TEMAZEPAM 7.5 MG CAP PO ONE (01:45)
[2016-11-18] MEDS: methylPREDNISolone SOD SUCC 40 MG/1 ML VIAL IV PUSH SCH ×4 (02:21→20:49)
[2016-11-18] MEDS: SODIUM CHLOR 0.9% 1000 ML INJ 1,000 ML IV SCH ×3 (02:55→23:14)
[2016-11-18] MEDS: PIPERACIL-TAZO 4.5 GM PREMIX 100 ML IV SCH ×4 (04:07→22:05)
[2016-11-18 04:41] LABS: AUTOMATED NEUTROPHIL # 10.1 TH/MM3 (1.8-7.7); BASOPHIL % 0.1 % (0.0-2.0); HEMATOCRIT 37.4 % (39.0-51.0); HEMO FLAGS DIFF FINAL; LYMPH % 6.7 % (9.0-44.0); LYMPHOCYTE # 0.7 TH/MM3 (1.0-4.8); MEAN CELL VOLUME 94.4 FL (80.0-100.0); MEAN CORPUSCULAR HEMOGLOBIN 31.7 PG (27.0-34.0); MEAN CORPUSCULAR HGB CONC 33.6 % (32.0-36.0); MONO % 1.8 % (0.0-8.0); NEUT % 91.4 % (16.0-70.0); PLATELET COUNT 168 TH/MM3 (150-450); RED BLOOD COUNT 3.96 MIL/MM3 (4.50-5.90); RED CELL DISTRIBUTION WIDTH 14.7 % (11.6-17.2)
[2016-11-18 05:00] LABS: BICARBONATE 20.6 MEQ/L (21.0-32.0); POTASSIUM 3.5 MEQ/L (3.5-5.1)
[2016-11-18 05:50] LABS: BLOOD GAS BASE EXCESS -7.9 mmol/L (-2-2); BLOOD GAS HCO3 16 mmol/L (22-26); BLOOD GAS METHEMOGLOBIN 0.9 % (0-2); BLOOD GAS O2 HGB SATURATION 85 % (90-100); BLOOD GAS OXYGEN CONTENT 14.8 Vol % (12.0-20.0); BLOOD GAS PCO2 26 mmHg (38-42); BLOOD GAS PO2 54 mmHg (61-120); BLOOD GAS TOTAL HGB 12.4 G/DL (12.0-16.0); TEMP CORR TO 98.6
[2016-11-18 05:51] LABS: CRITICAL VALUE YES; DRAW SITE LT RADIAL; FIO2 100 %; LITER FLOW 40 L/M; NUMBER OF ARTERIAL PUNCTURES 1; OXYGEN DEVICE HI-FLO NC; STAT NO; ULNAR PULSE PRESENT
[2016-11-18] MEDS: INSULIN ASPART SUPPLEMENTAL SCALE SQ SCH ×4 (06:22→21:37)
[2016-11-18] MEDS: PRIMIDONE 50 MG TAB PO SCH ×2 (06:28→20:49)
[2016-11-18] MEDS ORDERED: POTASSIUM CHLORIDE 20 MEQ CONTROLLED RELEASE TAB PO ONE (08:15)
[2016-11-18] MEDS: METOPROLOL TARTRATE 100 MG TAB PO SCH (08:24)
[2016-11-18] MEDS: GABAPENTIN 100 MG CAP PO SCH ×2 (08:24→20:57)
[2016-11-18] MEDS: guaiFENesin E.R. 600 MG TAB PO SCH ×2 (08:24→20:49)
[2016-11-18] MEDS: MONTELUKAST SODIUM 10 MG TAB PO SCH (08:25)
[2016-11-18] MEDS: PANTOPRAZOLE SOD 20 MG DELAYED RELEASE TAB PO SCH ×2 (08:25→20:49)
[2016-11-18] MEDS: hydrALAZINE HCL 25 MG TAB PO SCH ×2 (08:25→20:49)
[2016-11-18] MEDS: SODIUM CHLORIDE 0.9% FLUSH 5 ML FLUSH FLUSH SCH ×2 (08:28→20:48)
[2016-11-18] MEDS: BUDESONIDE-FORMOTEROL 160/4.5 MCG INHALER INH SCH ×2 (08:29→21:08)
--- NOTE | 2016-11-18 12:47 | MB ---
cc: Glenn SENA M.D. DATE OF CONSULTATION: 11/18/2016 REASON FOR CONSULTATION: HISTORY OF PRESENT ILLNESS: Mr. Rose is a 71-year-old white male presented with a right upper lobe pneumonia on 11/16 and has been in intensive care with significant hypoxemia. Chest x-ray yesterday, 24 hours after admission, showed increasing of right upper lobe consolidation with some mid to basilar disease as well. The patient is awake and alert at the time of this consultation. No complaint, says that he feels better than when he came in. Minimal sputum. No significant hemoptysis. Cultures of blood, sputum have been negative. Legionella and streptococcal antigens in the urine are negative. Influenza A and B are negative. He became ill just 24 hours before presentation. He traveled to the [place], felt well, came back, was actually doing some boating the day that he became ill, got extremely weak, began to have a cough, and within 24 hours was in the ER. He was a former smoker but quit smoking back in the 60s. Someone thought he had asthma at the [place] put him on Singulair but he has never been diagnosed formally with COPD or emphysema. No significant prior cardiovascular disease. He has been diabetic for a decade on oral therapy. OCCUPATIONAL HISTORY: He worked for [employer] many years in [place], [place], but retired 30 years ago, says that he was exposed to fumes and gases but again had no interval respiratory problem since then. No prior history of pneumonia. PAST MEDICAL HISTORY Hypertension. No prior history of myocardial infarction or stroke. No history of liver disease. SOCIAL HISTORY to his . She is here in the room. Prior smoking as noted, probably 15 to 20 years, quit in his 30s. Alcohol, a little heavy. He probably drinks on average, 3-4 beers a day, or 3-5 six packs a week. ALLERGIES Motrin and lisinopril. MEDICATIONS Medications reviewed and recorded in the EMR. REVIEW OF SYSTEMS No confusion. No headache. No chest pain. No nausea, vomiting, no change in bowel habits or diarrhea, only recent travel was to the [place]. CT angio on presentation revealed no thromboembolism. No skin rash. They have a small dog at home but no other unusual exposures. is here with him, has not been ill. PHYSICAL EXAMINATION The patient is in no distress at rest, afebrile for the last 24 hours on presentation 102, blood pressure has been stable, 130/60, respiratory rate 18 to 22. Sat on high-flow 92%. HEENT: Sclerae anicteric. Mucous membranes are moist. Neck veins are flat. Chest: Minimal chest congestion. No wheezing. Heart: Regular rhythm. No harsh murmur. Abdomen is soft, nontender. Extremities: No peripheral edema or calf tenderness. He has SCDs in place. DISCUSSION Mr. Rose presents with pneumonia, predominately in the right lung. Initially right upper lobe posterior segment. He had been vacationing and probably drinking beer in excess. I wonder if he aspirated. No other obvious unusual exposures. Reviewing his CT scan, he clearly does have some underlying emphysematous changes so this is probably complicated by COPD. Will continue Zithromax and Zosyn, good coverage for community-acquired pneumonia and aspiration. He has also been on vancomycin. Continue aerosol therapy and methylprednisolone. Further diagnostic and/or therapeutic intervention will depend on his ongoing clinical course. R. MD RAFAEL Souza/EDWAR /11:30 AM /12:35 PM
--- NOTE | 2016-11-18 13:14 | PD.CONS ---
HPI Service Critical Care Medicine Consult Requested By Lauren Bowen ([facility]) Reason for Consult Acute respiratory failure/pneumonia with possible need for intubation Primary Care Physician [facility] History of Present Illness History of Present Illness This is a 71-year-old male with a PMH of HTN, COPD, Hyperlipidemia and DM was brought to the ER on 11/17. with complaints of cough, SOB and fever at home of 100.3. States symptoms started approx 3 days prior to arrival w/ generalized malaise, now progressively worse. On arrival in the ER on 11/16, BP 126/59, HR 86 , O2 sat 88% on RA, Temp 101.0. WBC 15. K+ 3.0. Creatinine 1.60, no previous labs for comparison. Lactic Acid 1.6. CXR w/ RUL consolidation. CTA Chest w/ no PE, RUL consolidation present. S/p Blood/Sputum Culture in ER and Rocephin/ Zithro. Patient was admitted to the floor initially on 4 L nasal cannula however his O2 requirement progressively worsened and he was transferred to the ICU on 11/17 by hospitalist service. His antibiotics were switched from Rocephin to vancomycin/ Zosyn on 11/17. Zithromax was continued since 11/16. Overnight his oxygen requirement increased to 40 L/m high flow O2 via nasal cannula. Critical care consult was requested by hospitalist service on 11/18 and I evaluated the patient immediately on being notified this morning. At that time he was sitting up in bed on high flow O2 at 4 L/m. His O2 sats were fluctuating from the low 80s to the mid 90s. He appeared to be comfortable and was not using any accessory muscles of respiration at the time and stated that the high flow oxygen seem to have helped him a lot. He did have some coughing with minimal bloody expectoration. He denied any chest pain or nausea at the time of my evaluation. Review of Systems Except as stated in HPI: Detailed review of systems difficult to be obtained in view of respiratory failure requiring high flow O2 Past Family Social History Past Medical History PMH: HTN, COPD, Hyperlipidemia and DM Past Surgical History PAST SURGICAL HISTORY: Graft Finger Allergies: Coded Allergies: Lisinopril (Verified Allergy, Severe, Swelling, 11/16/16) Ibuprofen (Verified Adverse Reaction, Intermediate, Cramping, 11/16/16) Family History PAST FAMILY HISTORY: Reviewed. No h/o DM or CAD Social History PAST SOCIAL HISTORY: Occasional beer. Prior history of smoking, quit in 1968. Physical Exam Vital Signs Vital Signs Date Time Temp Pulse Resp B/P Pulse Ox O2 Delivery O2 Flow Rate FiO2 11/18/16 12:00 98.4 80 27 126/59 89 11/18/16 08:00 98.4 90 20 130/60 88 11/18/16 08:00 Nasal Cannula 11/18/16 07:38 92 High Flow Nasal Cannula 40.00 100 11/18/16 04:00 98.8 97 25 170/67 85 11/18/16 00:17 92 High Flow Nasal Cannula 40.00 100 11/18/16 00:00 99.0 88 25 130/59 94 11/17/16 20:18 91 Partial Rebreather 15.00 11/17/16 20:00 102.7 96 34 125/86 88 11/17/16 19:00 87 Non-Rebreather 8.00 11/17/16 16:17 99.3 11/17/16 15:30 100 128/58 93 11/17/16 13:46 95 Partial Rebreather 12.00 11/17/16 12:58 99.9 92 126/58 86 Physical Exam HEENT/Neuro: No pallor or icterus, tongue moist, ADA, Awake alert oriented 3 , nonfocal grossly, moving all 4 extremities Neck: No JVD Chest/pulmonary: Good air entry bilaterally, scattered rhonchi more on the right , no wheezing Cardiovascular: S1-S2 regular no gallop or murmur GI/abdomen: Soft, nontender, bowel sounds present Extremities: Warm bilaterally, no edema Laboratory Laboratory Tests Test 11/17/16 11/17/16 11/18/16 11/18/16 15:37 21:00 03:53 05:45 Sodium Level 135 136 Potassium Level 3.3 3.5 Chloride Level 100 101 Carbon Dioxide Level 23.7 20.6 Anion Gap 11 14 Blood Urea Nitrogen 15 13 Creatinine 1.17 1.02 Estimat Glomerular Filtration 62 72 Rate Random Glucose 160 219 Lactic Acid Level 2.0 Calcium Level 7.4 7.9 Protein Corrected Calcium 7.4 Total Protein 7.2 Nasal Screen MRSA (PCR) NEGATIVE White Blood Count 11.0 Red Blood Count 3.96 Hemoglobin 12.5 Hematocrit 37.4 Mean Corpuscular Volume 94.4 Mean Corpuscular Hemoglobin 31.7 Mean Corpuscular Hemoglobin 33.6 Concent Red Cell Distribution Width 14.7 Platelet Count 168 Mean Platelet Volume 10.0 Neutrophils (%) (Auto) 91.4 Lymphocytes (%) (Auto) 6.7 Monocytes (%) (Auto) 1.8 Eosinophils (%) (Auto) 0.0 Basophils (%) (Auto) 0.1 Neutrophils # (Auto) 10.1 Lymphocytes # (Auto) 0.7 Monocytes # (Auto) 0.2 Eosinophils # (Auto) 0.0 Basophils # (Auto) 0.0 CBC Comment DIFF FINAL Differential Comment Blood Gas Puncture Site LT RADIAL Blood Gas Patient Temperature 98.6 Blood Gas HCO3 16 Blood Gas Base Excess -7.9 Blood Gas Oxygen Saturation 85 Arterial Blood pH 7.40 Arterial Blood Partial 26 Pressure CO2 Arterial Blood Partial 54 Pressure O2 Arterial Blood Oxygen Content 14.8 Arterial Blood 1.0 Carboxyhemoglobin Arterial Blood Methemoglobin 0.9 Blood Gas Hemoglobin 12.4 Oxygen Delivery Device HI-CE NC Blood Gas Liter Flow 40 Blood Gas Inspired Oxygen 100 Date/Time Procedure Status Source Growth 11/17/16 17:50 Legionella Antigen - Final Complete Urine Clean Catch PRESUMPTIVE NEGATIVE FOR LEGIONELLA P... 11/17/16 17:50 Streptococcus pneumoniae Antigen (M - Final Complete Urine Clean Catch PRESUMPTIVE NEGATIVE FOR STREPTOCOCCU... 11/16/16 19:38 Influenza Types A,B Antigen (CHEN) - Final Complete Nasal Washing NEGATIVE FOR FLU A AND B ANTIGEN.... 11/16/16 19:30 Aerobic Blood Culture - Preliminary Resulted Blood Peripheral NO GROWTH IN 2 DAYS 11/16/16 19:30 Anaerobic Blood Culture - Preliminary Resulted Blood Peripheral NO GROWTH IN 2 DAYS 11/16/16 19:20 Gram Stain - Final Resulted Sputum Expectorated Sputum 11/16/16 19:20 Sputum Culture - Preliminary Resulted Sputum Expectorated Sputum HEAVY GROWTH NORMAL RESPIRATORY NAVEEN... Result Diagram: 11/18/16 0353 11/18/[address] chest PE protocol done on 11/16/16: No evidence of PE. Right upper lobe consolidation Chest x-ray portable done on 11/18 which was personally reviewed: Right upper lobe infiltrate noted Septic Shock Reassessment Heart: Regular rate and rhythm Lungs: Course Skin: Warm Peripheral Pulses: Bounding Right Radial Capillary Refill: Brisk Assessment and Plan Problem List: (1) Pneumonia ICD Code: J18.9 Status: Acute (2) Acute kidney injury ICD Code: N17.9 Status: Acute (3) COPD (chronic obstructive pulmonary disease) ICD Code: J44.9 Status: Acute (4) Hypokalemia ICD Code: E87.6 Status: Acute (5) Renal insufficiency ICD Code: N28.9 Status: Acute (6) Sepsis ICD Code: A41.9 Status: Acute (7) DM (diabetes mellitus) ICD Code: E11.9 Status: Acute Assessment and Plan 71-year-old male with: Right upper lobe pneumonia Sepsis Acute respiratory failure requiring high flow O2 Diabetes mellitus COPD Plan: Neuro: Follow neuro status. Avoid sedatives and narcotics. Cardiovascular: IV hydration, watch for hypotension. Levophed for pressor support if needed. Change metoprolol to 50 mg by mouth 4 times a day with hold for hypotension. Pulmonary: Continue high flow O2. May require BiPAP versus endotracheal intubation if respiratory status continues to decline. Bronchodilators. Continue IV Solu-Medrol. GI/liver: Nothing by mouth unless respiratory status permits by mouth diet. Renal/: IV hydration, strict intake output, monitor and replete elect lites, follow BUN creatinine. ID: Empiric antibiotic coverage with IV vancomycin/Zosyn/Zithromax. Follow-up cultures. Urine for strep pneumo and Legionella antigen pending. Endocrine: SSI for glycemic control if needed. Heme: Follow CBC Prophylaxis: SCDs, Lovenox Condition critical. Patient on high flow O2 for severe pneumonia and respiratory failure in May require endotracheal intubation. Time spent on critical care excluding procedures 60 minutes Problem Qualifiers (1) Pneumonia: Qualified Code: J18.1 - Pneumonia of right upper lobe due to infectious organism (2) Sepsis: Qualified Code: A41.9 - Sepsis, due to unspecified organism Harry Prabhakar MD Nov 18, 2016 13:14
[2016-11-18] MEDS: RESP: ALBUTEROL 2.5 MG/IPRATROPIUM 0.5 MG NEB (PRN) NEB (14:10)
[2016-11-18] MEDS: ENOXAPARIN SODIUM 40 MG/0.4 ML SYRINGE SQ SCH (14:14)
--- NOTE | 2016-11-18 14:29 | EKG ---
Date Performed: 11/17/2016 Time Performed: 23:02:34 PTAGE: 71 years EKG: Sinus rhythm with aberrantly conducted supraventricular complexes with PVC(s) Leftward axis Septal T wave changes are nonspecific Compared to prior tracing no significant change Borderline ECG NO PREVIOUS TRACING DOCTOR: Carlos Alberto Burns Interpretating Date/Time 11/18/2016 14:27:17
[2016-11-18] MEDS: SKIN TEST RESULT OTHER SCH (17:00)
[2016-11-18] MEDS: METOPROLOL TARTRATE 50 MG TAB PO SCH ×2 (17:08→20:48)
[2016-11-18] MEDS: VANCOMYCIN INJ 1,750 MG in SODIUM CHLORID 0.9% 500 ML INJ 500 ML IV SCH (17:48)
[2016-11-18 19:30] LABS: BLOOD GAS BASE EXCESS -3.6 mmol/L (-2-2); BLOOD GAS CARBOXYHEMOGLOBIN 0.9 % (0-4); BLOOD GAS HCO3 20 mmol/L (22-26); BLOOD GAS METHEMOGLOBIN 0.8 % (0-2); BLOOD GAS O2 HGB SATURATION 91 % (90-100); BLOOD GAS OXYGEN CONTENT 15.2 Vol % (12.0-20.0); BLOOD GAS PCO2 30 mmHg (38-42); BLOOD GAS PO2 63 mmHg (61-120); BLOOD GAS TOTAL HGB 11.9 G/DL (12.0-16.0); CRITICAL VALUE NO; LITER FLOW 40 L/M; OXYGEN DEVICE HI-FLO NC; TEMP CORR TO 98.6
[2016-11-18 19:31] LABS: DRAW SITE LT RADIAL; FIO2 100 %; NUMBER OF ARTERIAL PUNCTURES 1; STAT NO; ULNAR PULSE PRESENT
[2016-11-18] MEDS: AZITHROMYCIN INJ 500 MG in SODIUM CHLOR 0.9% 250 ML INJ 250 ML IV SCH (20:48)
[2016-11-18] MEDS: ZOLPIDEM TARTRATE 5 MG TAB PO PRN (23:41)
[2016-11-19] VITALS (9 sets, daily range): BP systolic 107–127; BP diastolic 43–60; PULSE 72–88; RESP 14–25; TEMP 97.4–98.5; O2SAT 89–95
[2016-11-19] MEDS: methylPREDNISolone SOD SUCC 40 MG/1 ML VIAL IV PUSH SCH ×4 (02:42→20:24)
[2016-11-19] MEDS: RESP: ALBUTEROL 2.5 MG/IPRATROPIUM 0.5 MG NEB (SCH) NEB ×6 (04:00→23:49)
[2016-11-19] MEDS: PIPERACIL-TAZO 4.5 GM PREMIX 100 ML IV SCH ×4 (04:21→23:06)
--- NOTE | 2016-11-19 04:37 | RADRPT ---
EXAM DATE/TIME: 11/19/2016 02:53 [facility] COMPARISON: CHEST SINGLE AP, November 17, 2016, 15:53. INDICATIONS : Shortness of breath. MEDICAL HISTORY : Hypertension. Diabetes mellitus type II. SURGICAL HISTORY : None. ENCOUNTER: Subsequent ACUITY: 4 - 6 days PAIN SCORE: Non-responsive. LOCATION: Bilateral chest FINDINGS: A single view of the chest demonstrates persistent airspace consolidation in the right upper lobe. De veloping left basilar consolidation/effusion. Heart size is normal accounting for the degree of inspi ration. Osseous structures are intact. CONCLUSION: 1. Persistent right upper lobe infiltrate. 2. Developing left basilar consolidation/effusion. José Luis Dickinson MD on November 19, 2016 at 4:35 Board Certified Radiologist. This report was verified electronically.
[2016-11-19] MEDS: PRIMIDONE 50 MG TAB PO SCH ×2 (05:17→20:24)
[2016-11-19 05:20] LABS: AUTOMATED NEUTROPHIL # 12.5 TH/MM3 (1.8-7.7); BASOPHIL % 0.2 % (0.0-2.0); HEMO FLAGS DIFF FINAL; LYMPH % 4.5 % (9.0-44.0); LYMPHOCYTE # 0.6 TH/MM3 (1.0-4.8); MEAN CELL VOLUME 91.9 FL (80.0-100.0); MEAN CORPUSCULAR HEMOGLOBIN 31.7 PG (27.0-34.0); MEAN CORPUSCULAR HGB CONC 34.5 % (32.0-36.0); MONO % 3.3 % (0.0-8.0); PLATELET COUNT 226 TH/MM3 (150-450); RED CELL DISTRIBUTION WIDTH 14.5 % (11.6-17.2); WHITE BLOOD COUNT 13.6 TH/MM3 (4.0-11.0)
[2016-11-19 05:43] LABS: ANION GAP 13 MEQ/L (5-15); AST (GOT) 30 U/L (15-37); BLOOD UREA NITROGEN 13 MG/DL (7-18); CHLORIDE 104 MEQ/L (98-107); GLOMERULAR FILTRATION RATE 80 ML/MIN (>89); POTASSIUM 3.2 MEQ/L (3.5-5.1); SODIUM (NA) 140 MEQ/L (136-145)
[2016-11-19 05:45] LABS: ALKALINE PHOSPHATASE 38 U/L (45-117); ALT (GPT) 36 U/L (12-78); TOTAL BILIRUBIN ADULT 0.5 MG/DL (0.2-1.0)
[2016-11-19] MEDS ORDERED: POTASSIUM CHLORIDE 20 MEQ CONTROLLED RELEASE TAB PO ONE ×3 (06:15→06:30)
[2016-11-19] MEDS: INSULIN ASPART SUPPLEMENTAL SCALE SQ SCH ×5 (06:20→21:00)
[2016-11-19] MEDS ORDERED: GLUCAGON 1 MG/ML VIAL IM/SQ PRN (06:30)
[2016-11-19] MEDS ORDERED: DEXTROSE 50% IN WATER 50 ML VIAL(D50) IV PRN (06:30)
[2016-11-19] MEDS: SODIUM CHLOR 0.9% 1000 ML INJ 1,000 ML IV SCH ×2 (06:51→19:24)
[2016-11-19] MEDS: guaiFENesin E.R. 600 MG TAB PO SCH ×2 (08:33→20:23)
[2016-11-19] MEDS: hydrALAZINE HCL 25 MG TAB PO SCH ×2 (08:33→20:23)
[2016-11-19] MEDS: MONTELUKAST SODIUM 10 MG TAB PO SCH (08:33)
[2016-11-19] MEDS: METOPROLOL TARTRATE 50 MG TAB PO SCH ×4 (08:33→20:23)
[2016-11-19] MEDS: BUDESONIDE-FORMOTEROL 160/4.5 MCG INHALER INH SCH ×2 (08:33→20:50)
[2016-11-19] MEDS: PANTOPRAZOLE SOD 20 MG DELAYED RELEASE TAB PO SCH ×2 (08:33→20:24)
[2016-11-19] MEDS: SODIUM CHLORIDE 0.9% FLUSH 5 ML FLUSH FLUSH SCH ×2 (08:33→20:25)
[2016-11-19] MEDS: GABAPENTIN 100 MG CAP PO SCH ×2 (08:33→20:24)
--- NOTE | 2016-11-19 09:56 | HHI.CCPN ---
Subjective Remarks/Hospital Course 11/18: This is a 71-year-old male with a PMH of HTN, COPD, Hyperlipidemia and DM was brought to the ER on 11/17. with complaints of cough, SOB and fever at home of 100.3. States symptoms started approx 3 days prior to arrival w/ generalized malaise, now progressively worse. On arrival in the ER on 11/16, BP 126/59, HR 86, O2 sat 88% on RA, Temp 101.0. WBC 15. K+ 3.0. Creatinine 1.60 , no previous labs for comparison. Lactic Acid 1.6. CXR w/ RUL consolidation. CTA Chest w/ no PE, RUL consolidation present. S/p Blood/Sputum Culture in ER and Rocephin/Zithro. Patient was admitted to the floor initially on 4 L nasal cannula however his O2 requirement progressively worsened and he was transferred to the ICU on 11/17 by hospitalist service. His antibiotics were switched from Rocephin to vancomycin/ Zosyn on 11/17. Zithromax was continued since 11/16. Overnight his oxygen requirement increased to 40 L/m high flow O2 via nasal cannula. Critical care consult was requested by hospitalist service on 11/18 and I evaluated the patient immediately on being notified this morning. At that time he was sitting up in bed on high flow O2 at 4 L/m. His O2 sats were fluctuating from the low 80s to the mid 90s. He appeared to be comfortable and was not using any accessory muscles of respiration at the time and stated that the high flow oxygen seem to have helped him a lot. He did have some coughing with minimal bloody expectoration. He denied any chest pain or nausea at the time of my evaluation. 11/19: Remains on high flow O2 at 40 L/m. Sitting up in bed. Appears comfortable. Awake and alert. Objective Vital Signs Date Time Temp Pulse Resp B/P Pulse Ox O2 Delivery O2 Flow Rate FiO2 11/19/16 08:46 90 High Flow Nasal Cannula 40.00 90 11/19/16 04:00 97.9 88 14 126/58 Intake and Output 11/18/16 11/18/16 11/19/16 08:00 16:00 00:00 Intake Total 938 ml 1129 ml 493 ml Output Total 1175 ml 1000 ml 300 ml Balance -237 ml 129 ml 193 ml Result Diagram: 11/19/16 0500 11/19/16 0500 Other Results Microbiology Date/Time Procedure Status Source Growth 11/16/16 19:20 Gram Stain - Final Complete Sputum Expectorated Sputum 11/16/16 19:20 Sputum Culture - Final Complete Sputum Expectorated Sputum HEAVY GROWTH NORMAL RESPIRATORY NAVEEN 11/16/16 19:38 Influenza Types A,B Antigen (CHEN) - Final Complete Nasal Washing NEGATIVE FOR FLU A AND B ANTIGEN.... 11/17/16 17:50 Legionella Antigen - Final Complete Urine Clean Catch PRESUMPTIVE NEGATIVE FOR LEGIONELLA P... 11/17/16 17:50 Streptococcus pneumoniae Antigen (M - Final Complete Urine Clean Catch PRESUMPTIVE NEGATIVE FOR STREPTOCOCCU... Laboratory Tests Test 11/18/16 19:25 Blood Gas Puncture Site LT RADIAL Blood Gas Patient Temperature 98.6 Blood Gas HCO3 20 mmol/L (22-26) Blood Gas Base Excess -3.6 mmol/L (-2-2) Blood Gas Oxygen Saturation 91 % (90-100) Arterial Blood pH 7.44 (7.380-7.420) Arterial Blood Partial 30 mmHg (38-42) Pressure CO2 Arterial Blood Partial 63 mmHg Pressure O2 (61-120) Arterial Blood Oxygen Content 15.2 Vol % (12.0-20.0) Arterial Blood 0.9 % (0-4) Carboxyhemoglobin Arterial Blood Methemoglobin 0.8 % (0-2) Blood Gas Hemoglobin 11.9 G/DL (12.0-16.0) Oxygen Delivery Device HI-CE NC Blood Gas Liter Flow 40 L/M Blood Gas Inspired Oxygen 100 % Imaging CT chest PE protocol done on 11/16/16: No evidence of PE. Right upper lobe consolidation Chest x-ray portable done on 11/18 which was personally reviewed: Right upper lobe infiltrate noted Objective Remarks HEENT/Neuro: No pallor or icterus, tongue moist, ADA, Awake alert oriented 3 , nonfocal grossly, moving all 4 extremities Neck: No JVD Chest/pulmonary: Good air entry bilaterally, scattered rhonchi more on the right , no wheezing Cardiovascular: S1-S2 regular no gallop or murmur GI/abdomen: Soft, nontender, bowel sounds present Extremities: Warm bilaterally, no edema A/P Problem List: (1) Pneumonia ICD Code: J18.9 Status: Acute (2) Acute kidney injury ICD Code: N17.9 Status: Acute (3) COPD (chronic obstructive pulmonary disease) ICD Code: J44.9 Status: Acute (4) Hypokalemia ICD Code: E87.6 Status: Acute (5) Renal insufficiency ICD Code: N28.9 Status: Acute (6) Sepsis ICD Code: A41.9 Status: Acute (7) DM (diabetes mellitus) ICD Code: E11.9 Status: Acute Assessment and Plan 71-year-old male with: Right upper lobe pneumonia Sepsis Acute respiratory failure requiring high flow O2 Diabetes mellitus COPD Plan: Neuro: Follow neuro status. Avoid sedatives and narcotics. Cardiovascular: IV hydration, watch for hypotension. Levophed for pressor support if needed. Change metoprolol to 50 mg by mouth 4 times a day with hold for hypotension. Pulmonary: Continue high flow O2. May require BiPAP versus endotracheal intubation if respiratory status declines. Bronchodilators. Continue IV Solu- Medrol. GI/liver: Continue by mouth diet if respiratory status permits. Renal/: IV hydration, strict intake output, monitor and replete elect lites, follow BUN creatinine. ID: Empiric antibiotic coverage with IV vancomycin/Zosyn/Zithromax. Follow-up cultures. Urine for strep pneumo and Legionella antigen negative. Endocrine: SSI for glycemic control if needed. Heme: Follow CBC Prophylaxis: SCDs, Lovenox Condition critical. Patient on high flow O2 for severe pneumonia and respiratory failure in May require endotracheal intubation. Time spent on critical care excluding procedures 30 minutes Problem Qualifiers (1) Pneumonia: Qualified Code: J18.1 - Pneumonia of right upper lobe due to infectious organism (2) Sepsis: Qualified Code: A41.9 - Sepsis, due to unspecified organism Harry Prabhakar MD Nov 19, 2016 09:56
[2016-11-19] MEDS ORDERED: POTASSIUM CHLOR 20 MEQ PREMIX 100 ML IV PRN ×2 (11:15)
[2016-11-19] MEDS ORDERED: POTASSIUM PHOSPHATE INJ 30 MMOL in SODIUM CHLOR 0.9% 250 ML INJ 250 ML IV PRN (11:15)
[2016-11-19] MEDS ORDERED: MAGNESIUM SULFATE INJ 4 GM in SODIUM CHLORIDE 0.9% INJ 92 ML IV PRN (11:15)
[2016-11-19] MEDS ORDERED: POTASSIUM CL 40 MEQ/30 ML LIQ UDC PO/TUBE PRN (11:15)
[2016-11-19] MEDS ORDERED: POTASSIUM CHLORIDE 20 MEQ PWD PACKET PO/NG PRN (11:15)
[2016-11-19] MEDS ORDERED: POTASSIUM PHOSPHATE MONOBASIC 500 MG TAB PO/TUBE PRN (11:15)
[2016-11-19] MEDS ORDERED: POTASSIUM CHLOR 40 MEQ PREMIX 100 ML IV PRN ×2 (11:15)
[2016-11-19] MEDS ORDERED: MAGNESIUM SULFATE INJ 2 GM in SODIUM CHLORIDE 0.9% INJ 96 ML IV PRN (11:15)
[2016-11-19] MEDS ORDERED: POTASSIUM PHOSPHATE MONOBASIC 500 MG TAB PO PRN (11:15)
[2016-11-19] MEDS ORDERED: MAGNESIUM OXIDE 400 MG TAB PO PRN (11:15)
[2016-11-19] MEDS ORDERED: SODIUM PHOSPHATE INJ 30 MMOL in SODIUM CHLOR 0.9% 250 ML INJ 240 ML IV PRN (11:15)
[2016-11-19] MEDS: ENOXAPARIN SODIUM 40 MG/0.4 ML SYRINGE SQ SCH (14:20)
[2016-11-19] MEDS: SKIN TEST RESULT OTHER SCH (16:06)
[2016-11-19] MEDS: VANCOMYCIN INJ 1,750 MG in SODIUM CHLORID 0.9% 500 ML INJ 500 ML IV SCH (18:36)
[2016-11-19] MEDS: AZITHROMYCIN INJ 500 MG in SODIUM CHLOR 0.9% 250 ML INJ 250 ML IV SCH (20:24)
[2016-11-19] MEDS: ZOLPIDEM TARTRATE 5 MG TAB PO PRN (23:50)
[2016-11-20] VITALS (8 sets, daily range): BP systolic 118–149; BP diastolic 58–72; PULSE 66–83; RESP 18–26; TEMP 97.8–98; O2SAT 88–94
[2016-11-20] MEDS: methylPREDNISolone SOD SUCC 40 MG/1 ML VIAL IV PUSH SCH ×4 (03:12→20:58)
[2016-11-20] MEDS: RESP: ALBUTEROL 2.5 MG/IPRATROPIUM 0.5 MG NEB (SCH) NEB ×5 (05:13→19:26)
[2016-11-20] MEDS: SODIUM CHLOR 0.9% 1000 ML INJ 1,000 ML IV SCH ×2 (05:31→20:30)
[2016-11-20] MEDS: PRIMIDONE 50 MG TAB PO SCH ×2 (05:43→20:58)
[2016-11-20] MEDS: PIPERACIL-TAZO 4.5 GM PREMIX 100 ML IV SCH ×4 (05:43→23:45)
[2016-11-20] MEDS: INSULIN ASPART SUPPLEMENTAL SCALE SQ SCH ×4 (07:00→21:00)
[2016-11-20] MEDS: guaiFENesin E.R. 600 MG TAB PO SCH ×2 (08:54→20:58)
[2016-11-20] MEDS: METOPROLOL TARTRATE 50 MG TAB PO SCH ×4 (08:54→20:58)
[2016-11-20] MEDS: GABAPENTIN 100 MG CAP PO SCH ×2 (08:55→20:58)
[2016-11-20] MEDS: MONTELUKAST SODIUM 10 MG TAB PO SCH (08:55)
[2016-11-20] MEDS: PANTOPRAZOLE SOD 20 MG DELAYED RELEASE TAB PO SCH ×2 (08:55→20:58)
[2016-11-20] MEDS: hydrALAZINE HCL 25 MG TAB PO SCH ×2 (08:55→20:58)
[2016-11-20] MEDS: BUDESONIDE-FORMOTEROL 160/4.5 MCG INHALER INH SCH ×2 (09:00→20:58)
--- NOTE | 2016-11-20 09:54 | HHI.CCPN ---
Subjective Remarks/Hospital Course 11/18: This is a 71-year-old male with a PMH of HTN, COPD, Hyperlipidemia and DM was brought to the ER on 11/17. with complaints of cough, SOB and fever at home of 100.3. States symptoms started approx 3 days prior to arrival w/ generalized malaise, now progressively worse. On arrival in the ER on 11/16, BP 126/59, HR 86, O2 sat 88% on RA, Temp 101.0. WBC 15. K+ 3.0. Creatinine 1.60 , no previous labs for comparison. Lactic Acid 1.6. CXR w/ RUL consolidation. CTA Chest w/ no PE, RUL consolidation present. S/p Blood/Sputum Culture in ER and Rocephin/Zithro. Patient was admitted to the floor initially on 4 L nasal cannula however his O2 requirement progressively worsened and he was transferred to the ICU on 11/17 by hospitalist service. His antibiotics were switched from Rocephin to vancomycin/ Zosyn on 11/17. Zithromax was continued since 11/16. Overnight his oxygen requirement increased to 40 L/m high flow O2 via nasal cannula. Critical care consult was requested by hospitalist service on 11/18 and I evaluated the patient immediately on being notified this morning. At that time he was sitting up in bed on high flow O2 at 4 L/m. His O2 sats were fluctuating from the low 80s to the mid 90s. He appeared to be comfortable and was not using any accessory muscles of respiration at the time and stated that the high flow oxygen seem to have helped him a lot. He did have some coughing with minimal bloody expectoration. He denied any chest pain or nausea at the time of my evaluation. 11/19: Remains on high flow O2 at 40 L/m. Sitting up in bed. Appears comfortable. Awake and alert. 11/20: Insulin high flow O2 at 35 L/m. Sitting up in bed. Awake and alert. Minimal shortness of breath. Objective Vital Signs Date Time Temp Pulse Resp B/P Pulse Ox O2 Delivery O2 Flow Rate FiO2 11/20/16 07:39 90 High Flow Nasal Cannula 40.00 90 11/20/16 04:00 98.0 66 20 137/63 Intake and Output 11/19/16 11/19/16 11/20/16 08:00 16:00 00:00 Intake Total 1877 ml 1288 ml 2352 ml Output Total 900 ml 950 ml 550 ml Balance 977 ml 338 ml 1802 ml Result Diagram: 11/19/16 0500 11/20/16 0335 Other Results Microbiology Date/Time Procedure Status Source Growth 11/17/16 17:50 Legionella Antigen - Final Complete Urine Clean Catch PRESUMPTIVE NEGATIVE FOR LEGIONELLA P... 11/17/16 17:50 Streptococcus pneumoniae Antigen (M - Final Complete Urine Clean Catch PRESUMPTIVE NEGATIVE FOR STREPTOCOCCU... Imaging CT chest PE protocol done on 11/16/16: No evidence of PE. Right upper lobe consolidation Chest x-ray portable done on 11/18 which was personally reviewed: Right upper lobe infiltrate noted Objective Remarks HEENT/Neuro: No pallor or icterus, tongue moist, ADA, Awake alert oriented 3 , nonfocal grossly, moving all 4 extremities Neck: No JVD Chest/pulmonary: Good air entry bilaterally, scattered rhonchi more on the right , no wheezing Cardiovascular: S1-S2 regular no gallop or murmur GI/abdomen: Soft, nontender, bowel sounds present Extremities: Warm bilaterally, no edema A/P Problem List: (1) Pneumonia ICD Code: J18.9 Status: Acute (2) Acute kidney injury ICD Code: N17.9 Status: Acute (3) COPD (chronic obstructive pulmonary disease) ICD Code: J44.9 Status: Acute (4) Hypokalemia ICD Code: E87.6 Status: Acute (5) Renal insufficiency ICD Code: N28.9 Status: Acute (6) Sepsis ICD Code: A41.9 Status: Acute (7) DM (diabetes mellitus) ICD Code: E11.9 Status: Acute Assessment and Plan 71-year-old male with: Right upper lobe pneumonia Sepsis Acute respiratory failure requiring high flow O2 Diabetes mellitus COPD Plan: Neuro: Follow neuro status. Ambien 5mg QHS prn for insomnia Cardiovascular: IV hydration, watch for hypotension. Levophed for pressor support if needed. Changed metoprolol to 50 mg by mouth 4 times a day with hold for hypotension. Pulmonary: Continue high flow O2. May require BiPAP versus endotracheal intubation if respiratory status declines. Bronchodilators. Continue IV Solu- Medrol. GI/liver: Continue by mouth diet if respiratory status permits. Renal/: IV hydration, strict intake output, monitor and replete elect lites, follow BUN creatinine. ID: Empiric antibiotic coverage with IV vancomycin/Zosyn/Zithromax. Follow-up cultures. Urine for strep pneumo and Legionella antigen negative. Endocrine: SSI for glycemic control if needed. Heme: Follow CBC Prophylaxis: SCDs, Lovenox Condition critical. Patient on high flow O2 for severe pneumonia and respiratory failure in May require endotracheal intubation. Time spent on critical care excluding procedures 30 minutes Problem Qualifiers (1) Pneumonia: Qualified Code: J18.1 - Pneumonia of right upper lobe due to infectious organism (2) Sepsis: Qualified Code: A41.9 - Sepsis, due to unspecified organism Harry Prabhakar MD Nov 20, 2016 09:53
[2016-11-20] MEDS: ENOXAPARIN SODIUM 40 MG/0.4 ML SYRINGE SQ SCH (14:23)
[2016-11-20] MEDS: SKIN TEST RESULT OTHER SCH (17:00)
[2016-11-20] MEDS: SODIUM CHLORIDE 0.9% FLUSH 5 ML FLUSH FLUSH SCH ×2 (17:18→20:58)
[2016-11-20] MEDS ORDERED: PHARMACY ORDERED LAB XX ONE (17:45)
[2016-11-20] MEDS: VANCOMYCIN INJ 1,750 MG in SODIUM CHLORID 0.9% 500 ML INJ 500 ML IV SCH (18:19)
[2016-11-20] MEDS: AZITHROMYCIN INJ 500 MG in SODIUM CHLOR 0.9% 250 ML INJ 250 ML IV SCH (20:57)
[2016-11-20] MEDS: ZOLPIDEM TARTRATE 5 MG TAB PO PRN (23:45)
[2016-11-21] VITALS (14 sets, daily range): BP systolic 139–169; BP diastolic 63–79; PULSE 52–75; RESP 15–26; TEMP 97.7–99; O2SAT 84–97
[2016-11-21] MEDS: RESP: ALBUTEROL 2.5 MG/IPRATROPIUM 0.5 MG NEB (SCH) NEB ×6 (00:09→23:45)
[2016-11-21] MEDS: SODIUM CHLOR 0.9% 1000 ML INJ 1,000 ML IV SCH ×3 (00:58→21:31)
[2016-11-21] MEDS: methylPREDNISolone SOD SUCC 40 MG/1 ML VIAL IV PUSH SCH ×4 (02:38→21:00)
[2016-11-21] MEDS: PIPERACIL-TAZO 4.5 GM PREMIX 100 ML IV SCH ×4 (04:42→23:59)
[2016-11-21] MEDS: PRIMIDONE 50 MG TAB PO SCH ×2 (05:06→21:00)
--- NOTE | 2016-11-21 05:08 | RADRPT ---
EXAM DATE/TIME: 11/21/2016 03:35 [facility] COMPARISON: CHEST SINGLE AP, November 19, 2016, 2:53. INDICATIONS : Shortness of breath. MEDICAL HISTORY : Hypertension. Diabetes mellitus type II. Gastroesophageal reflux disease. SURGICAL HISTORY : None. ENCOUNTER: Subsequent ACUITY: 1 week PAIN SCORE: 0/10 LOCATION: Bilateral chest FINDINGS: A single view of the chest demonstrates persistent right upper lobe airspace disease. Developing biba silar effusions, left greater than right. CONCLUSION: 1. Persistent right upper lobe airspace infiltrate, unchanged. 2. Developing bibasilar effusions, left greater than right. José Luis Dickinson MD on November 21, 2016 at 5:05 Board Certified Radiologist. This report was verified electronically.
[2016-11-21 05:38] LABS: AUTOMATED NEUTROPHIL # 10.9 TH/MM3 (1.8-7.7); BASOPHIL % 0.1 % (0.0-2.0); LYMPH % 5.8 % (9.0-44.0); LYMPHOCYTE # 0.7 TH/MM3 (1.0-4.8); MEAN CELL VOLUME 92.9 FL (80.0-100.0); MEAN CORPUSCULAR HEMOGLOBIN 31.5 PG (27.0-34.0); MEAN CORPUSCULAR HGB CONC 33.9 % (32.0-36.0); MONO % 6.8 % (0.0-8.0); NEUT % 87.3 % (16.0-70.0); PLATELET COUNT 307 TH/MM3 (150-450); RED BLOOD COUNT 3.55 MIL/MM3 (4.50-5.90); RED CELL DISTRIBUTION WIDTH 14.9 % (11.6-17.2); WHITE BLOOD COUNT 12.5 TH/MM3 (4.0-11.0)
[2016-11-21 05:51] LABS: BICARBONATE 28.2 MEQ/L (21.0-32.0); CALCIUM-PROTEIN CORRECTED 7.7 MG/DL (8.5-10.1); MAGNESIUM 2.3 MG/DL (1.5-2.5); POTASSIUM 3.6 MEQ/L (3.5-5.1); TOTAL BILIRUBIN ADULT 0.6 MG/DL (0.2-1.0)
[2016-11-21 06:17] LABS: HEMO FLAGS AUTO DIFF
[2016-11-21] MEDS: INSULIN ASPART SUPPLEMENTAL SCALE SQ SCH ×4 (07:00→21:00)
[2016-11-21 07:47] LABS: BANDS 6 % (0-6); NEUTROPHIL # MANUAL DIFF 11.9 TH/MM3 (1.8-7.7); PLATELET ESTIMATE SMEAR NORMAL (NORMAL); PLATELET MORPHOLOGY NORMAL (NORMAL); POLYS (SEG NEUTROPHILS) 89 % (16-70); WBC DIFF SAMPLE 100
[2016-11-21 07:48] LABS: SCAN/DIFF FINAL DIFF MANUAL
[2016-11-21] MEDS: METOPROLOL TARTRATE 50 MG TAB PO SCH ×4 (08:22→21:00)
[2016-11-21] MEDS: guaiFENesin E.R. 600 MG TAB PO SCH ×2 (08:22→21:00)
[2016-11-21] MEDS: SODIUM CHLORIDE 0.9% FLUSH 5 ML FLUSH FLUSH SCH ×2 (08:22→21:00)
[2016-11-21] MEDS: hydrALAZINE HCL 25 MG TAB PO SCH ×2 (08:22→21:00)
[2016-11-21] MEDS: MONTELUKAST SODIUM 10 MG TAB PO SCH (08:23)
[2016-11-21] MEDS: PANTOPRAZOLE SOD 20 MG DELAYED RELEASE TAB PO SCH ×2 (08:23→21:00)
[2016-11-21] MEDS: BUDESONIDE-FORMOTEROL 160/4.5 MCG INHALER INH SCH ×2 (08:23→21:00)
[2016-11-21] MEDS: GABAPENTIN 100 MG CAP PO SCH ×2 (08:23→21:00)
--- NOTE | 2016-11-21 08:59 | HHI.PR ---
Subjective Remarks still with sob and cough. on high flow oxygen. afebrile. d/w the RN. Objective Vitals Vital Signs Date Time Temp Pulse Resp B/P Pulse Ox O2 Delivery O2 Flow Rate FiO2 11/21/16 07:00 Nasal Cannula 8.00 35 11/21/16 04:00 64 26 91 11/21/16 03:46 94 High Flow Nasal Cannula 40.00 90 11/21/16 00:10 92 High Flow Nasal Cannula 40.00 90 11/21/16 00:00 98.0 65 24 142/69 89 11/20/16 20:00 92 Nasal Cannula 8.00 35 11/20/16 20:00 98.0 77 22 149/72 92 11/20/16 19:28 94 High Flow Nasal Cannula 40.00 90 11/20/16 16:00 97.8 83 24 137/64 92 11/20/16 12:00 97.9 72 18 144/64 90 11/20/16 11:37 89 Nasal Cannula 8.00 I/O 11/20/16 11/20/16 11/20/16 11/21/16 11/21/16 11/21/16 07:00 15:00 23:00 07:00 15:00 23:00 Intake Total 250 ml 600 ml 680 ml 610 ml Output Total 450 ml 1550 ml 720 ml 920 ml Balance -200 ml -950 ml -40 ml -310 ml IV Total 250 ml 600 ml 680 ml 610 ml Output Urine Total 450 ml 1550 ml 720 ml 920 ml # Bowel Movements 1 1 1 Result Diagram: 11/21/16 0448 11/21/16 0448 Imaging Last Impressions Chest X-Ray 11/21/16 0600 Signed Impressions: Service Date/Time: Monday, November 21, 2016 03:35 - CONCLUSION: 1. Persistent right upper lobe airspace infiltrate, unchanged. 2. Developing bibasilar effusions, left greater than right. José Luis Dickinson MD CT Angiography 11/16/16 0000 Signed Impressions: Service Date/Time: Wednesday, November 16, 2016 20:34 - CONCLUSION: No evidence of pulmonary embolism. Consolidating airspace disease in the right upper lobe. Mild subsegmental air space disease in both lower lobes. Sacha Walls MD Objective Remarks GENERAL: with some sob and cough CARDIOVASCULAR: Regular rate and regular rhythm without murmurs, gallops, or rubs. RESPIRATORY: diminished air entry on right base GASTROINTESTINAL: Abdomen soft, non-tender, nondistended. Normal, active bowel sounds MUSCULOSKELETAL: Extremities without clubbing, cyanosis, or edema. NEURO: Alert & Oriented x4 to person, place, time, situation. Moves all ext x4 Medications and IVs Current Medications Ceftriaxone Sodium 1000 mg/ Sodium Chloride 25 ml @ 50 mls/hr ONCE ONCE IV Last administered on 11/16/16 20:10; Start 11/16/16 at 20:00; Stop 11/16/16 at 20: 29; Status DC Azithromycin 500 mg/Sodium Chloride 250 ml @ 250 mls/hr ONCE ONCE IV Last administered on 11/16/16 20:09; Start 11/16/16 at 20:00; Stop 11/16/16 at 20:59; Status DC Sodium Chloride (NS 1000 ml Inj) 1,000 ml @ 1,000 mls/hr Q1H IV Last administered on 11/16/16 20:27; Start 11/16/16 at 20:20; Stop 11/16/16 at 21:19; Status DC Potassium Chloride 40 meq 40 meq ONCE ONCE PO Last administered on 11/16/16 20 :27; Start 11/16/16 at 20:30; Stop 11/16/16 at 20:31; Status DC Sodium Chloride (NS 1000 ml Inj) 1,000 ml @ 999 mls/hr BOLUS ONCE IV Last administered on 11/16/16 21:04; Start 11/16/16 at 20:30; Stop 11/16/16 at 21:30; Status DC Iohexol 73 ml 73 ml STK-MED ONCE IV Last administered on 11/16/16 20:36; Start 11/16/16 at 20:36; Stop 11/16/16 at 20:37; Status DC Ceftriaxone Sodium 1000 mg/ Sodium Chloride 100 ml @ 200 mls/hr Q24H IV ; Start 11/17/16 at 20:00; Stop 11/17/16 at 20:00; Status DC Azithromycin/ Sodium Chloride (Zithromax Inj/ NS 250 ml Inj) 250 ml @ 250 mls/ hr Q24H IV Last administered on 11/20/16 20:57; Start 11/17/16 at 21:00 Guaifenesin (Mucinex Er) 600 mg BID PO Last administered on 11/21/16 08:22; Start 11/17/16 at 09:00 Budesonide/ Formoterol Fumarate (Symbicort 160-4.5 Inh) 2 puff Q12HR INH Last administered on 11/21/16 08:23; Start 11/16/16 at 21:45 Albuterol/ Ipratropium (Duoneb Neb) 1 ampule Q4HR WHILE AWAKE NEB NEB Last administered on 11/17/16 20:12; Start 11/17/16 at 08:00; Stop 11/17/16 at 23:16; Status DC Albuterol/ Ipratropium (Duoneb Neb) 1 ampule Q2HR NEB PRN NEB SOB/WHEEZING Last administered on 11/18/16 14:10; Start 11/16/16 at 21:45 Dextrose (D50w (Vial) Inj) 25 ml UNSCH PRN IV PUSH HYPOGLYCEMIA-SEE COMMENTS; Start 11/16/16 at 21:45; Stop 11/19/16 at 06:32; Status DC Glucagon (Glucagon Inj) 1 mg UNSCH PRN OTHER HYPOGLYCEMIA-SEE COMMENTS; Start 11/16/16 at 21:45; Stop 11/19/16 at 06:32; Status DC Insulin Aspart 1 1 ACHS SLIDING SCALE SQ Last administered on 11/19/16 06:20; Start 11/17/16 at 07:00; Stop 11/19/16 at 06:30; Status DC Sodium Chloride (NS 1000 ml Inj) 1,000 ml @ 100 mls/hr Q10H IV Last administered on 11/21/16 00:58; Start 11/16/16 at 21:31 IV Flush (NS Flush) 2 ml UNSCH PRN FLUSH FLUSH AFTER USING IV ACCESS; Start 11/16/16 at 21:45 IV Flush (NS Flush) 2 ml BID FLUSH Last administered on 11/21/16 08:22; Start 11/17/16 at 09:00 Ondansetron HCl (Zofran Inj) 4 mg Q6H PRN IVP NAUSEA OR VOMITING; Start at 21:45 Bisacodyl (Dulcolax Supp) 10 mg DAILY PRN CA CONSTIPATION; Start 11/16/16 at 21: 45 Acetaminophen (Tylenol) 650 mg Q6H PRN PO FEVER/PAIN SCALE 1 TO 2 Last administered on 11/17/16 19:42; Start 11/16/16 at 21:45 Acetaminophen/ Hydrocodone Bitart (Julian 5-325 Mg) 1 tab Q4H PRN PO PAIN SCALE 3 TO 5; Start 11/16/16 at 21:45 Morphine Sulfate (Morphine Inj) 2 mg Q3H PRN IV Pain 6-10; Start 11/16/16 at 21: 45 Amlodipine Besylate (Norvasc) 10 mg DAILY PO Last administered on 11/21/16 08: 23; Start 11/17/16 at 09:00 Gabapentin (Neurontin) 100 mg BID PO Last administered on 11/21/16 08:23; Start 11/17/16 at 09:00 Hydralazine HCl (Apresoline) 25 mg BID PO Last administered on 11/21/16 08:22; Start 11/17/16 at 09:00 Metoprolol Tartrate (Lopressor) 100 mg BID PO Last administered on 11/18/16 08: 24; Start 11/17/16 at 09:00; Stop 11/18/16 at 13:19; Status DC Montelukast Sodium (Singulair) 10 mg DAILY PO Last administered on 11/21/16 08: 23; Start 11/17/16 at 09:00 Pantoprazole Sodium (Protonix) 20 mg BID PO Last administered on 11/21/16 08:23 ; Start 11/17/16 at 09:00 Primidone (Mysoline) 50 mg HS PO Last administered on 11/20/16 20:58; Start 11/17/16 at 21:00 Primidone (Mysoline) 100 mg DAILY@0600 PO Last administered on 11/21/16 05:06; Start 11/17/16 at 06:00 Diphenhydramine HCl 25 mg 25 mg ONCE ONCE PO Last administered on 11/17/16 02: 35; Start 11/17/16 at 02:30; Stop 11/17/16 at 02:33; Status DC Potassium Chloride 100 ml @ 50 mls/hr Q2H IV Last administered on 11/17/16 11: 24; Start 11/17/16 at 08:00; Stop 11/17/16 at 11:59; Status DC Magnesium Sulfate/ Dextrose (Magnesium Sulfate 1 Gm Premix) 100 ml @ 100 mls/ hr ONCE ONCE IV Last administered on 11/17/16 14:01; Start 11/17/16 at 09:15; Stop 11/17/16 at 10:21; Status DC Benzonatate 200 mg 200 mg Q8H PRN PO COUGH; Start 11/17/16 at 09:15 Pharmacy Profile Note 0 ml @ 0 mls/hr UNSCH OTHER ; Start 11/17/16 at 15:45 Piperacillin Sod/ Tazobactam Sod (Zosyn 4.5 Gm Premix) 100 ml @ 200 mls/hr Q6H IV Last administered on 11/20/16 23:45; Start 11/17/16 at 17:00 Tuberculin PPD (Ppd Inj) 5 units ONCE ONCE ID Last administered on 11/17/16 17 :46; Start 11/17/16 at 17:00; Stop 11/17/16 at 17:01; Status DC Miscellaneous Information 1 1 Q24H OTHER Last administered on 11/20/16 17:00; Start 11/18/16 at 17:00; Stop 11/20/16 at 17:01; Status DC Vancomycin HCl/ Sodium Chloride (Vancomycin Inj/ NS 500 ml Inj) 517.5 ml @ 250 mls/hr Q24H IV Last administered on 11/20/16 18:19; Start 11/17/16 at 18:00; Stop 11/20/16 at 19:12; Status DC Miscellaneous Information SPECIFIC LAB TO BE TERRELL... ONCE ONCE XX Last administered on 11/20/16 18:00; Start 11/20/16 at 17:45; Stop 11/20/16 at 17:46; Status DC Potassium Chloride (KCl) 20 meq ONCE ONCE PO Last administered on 11/17/16 21: 10; Start 11/17/16 at 21:00; Stop 11/17/16 at 21:01; Status DC Methylprednisolone Sodium Succinate (SoluMEDROL INJ) 125 mg ONCE ONCE IV PUSH Last administered on 11/17/16 21:10; Start 11/17/16 at 21:00; Stop 11/17/16 at 21: 01; Status DC Methylprednisolone Sodium Succinate 40 mg 40 mg Q6H IV PUSH Last administered on 11/21/16 02:38; Start 11/18/16 at 03:00 Calcium Gluconate/ Sodium Chloride (Calcium Gluconate Inj/NS Inj) 110 ml @ 110 mls/hr ONCE ONCE IV Last administered on 11/17/16 22:54; Start 11/17/16 at 22: 00; Stop 11/17/16 at 22:59; Status DC Albuterol/ Ipratropium (Duoneb Neb) 1 ampule Q4HR NEB NEB Last administered on 11/21/16 00:09; Start 11/18/16 at 00:00 Furosemide (Lasix Inj) 20 mg ONCE ONCE IV PUSH Last administered on 11/18/16 01:04; Start 11/18/16 at 00:45; Stop 11/18/16 at 00:46; Status DC Guaifenesin/ Dextromethorphan (Robitussin Dm 200-20 Mg/10 ml Liq) 10 ml Q4H PRN PO cough; Start 11/18/16 at 00:45 Temazepam (Restoril) 7.5 mg ONCE ONCE PO Last administered on 11/18/16 01:51; Start 11/18/16 at 01:45; Stop 11/18/16 at 01:46; Status DC Potassium Chloride (KCl) 40 meq NOW ONCE PO Last administered on 11/18/16 08: 24; Start 11/18/16 at 08:15; Stop 11/18/16 at 08:16; Status DC Enoxaparin Sodium (Lovenox Inj) 40 mg Q24H SQ Last administered on 11/20/16 14: 23; Start 11/18/16 at 14:00 Metoprolol Tartrate (Lopressor) 50 mg QID PO Last administered on 11/21/16 08: 22; Start 11/18/16 at 18:00 Zolpidem Tartrate (Ambien) 5 mg HS PRN PO insomnia Last administered on 23:45; Start 11/18/16 at 18:00 Potassium Chloride (KCl) 20 meq NOW ONCE PO Last administered on 11/19/16 06: 24; Start 11/19/16 at 06:15; Stop 11/19/16 at 06:16; Status DC Potassium Chloride (KCl) 20 meq ONCE ONCE PO Last administered on 11/19/16 06: 24; Start 11/19/16 at 06:30; Stop 11/19/16 at 06:31; Status DC Potassium Chloride (KCl) 20 meq ONCE ONCE PO ; Start 11/19/16 at 06:30; Stop 11/19/16 at 06:31; Status Cancel Insulin Aspart (NovoLOG SUPPLEMENTAL SCALE) 1 ACHS SQ Last administered on 07:00; Start 11/19/16 at 07:00 Dextrose (D50w (Vial) Inj) 25 ml UNSCH PRN IV HYPOGLYCEMIA-SEE COMMENTS; Start 11/19/16 at 06:30 Glucagon 1 mg 1 mg UNSCH PRN IM/SQ HYPOGLYCEMIA-SEE COMMENTS; Start 11/19/16 at 06:30 Potassium Chloride 100 ml @ 50 mls/hr Q2H PRN IV For Potassium 2.8 - 3.2 mEq/L ; Start 11/19/16 at 11:15 Potassium Chloride (KCl 20 Meq Premix Inj) 100 ml @ 50 mls/hr Q2H PRN IV For Potassium 2.8 - 3.2 mEq/L Last administered on 11/19/16 15:55; Start 11/19/16 at 11:15 Potassium Chloride 40 meq 40 meq UNSCH PRN PO/NG For Potassium 3.3 - 3.5 mEq/L Last administered on 11/19/16 18:03; Start 11/19/16 at 11:15 Potassium Chloride 100 ml @ 25 mls/hr UNSCH PRN IV For Potassium 3.3 - 3.5 mEq /L; Start 11/19/16 at 11:15 Potassium Chloride 100 ml @ 50 mls/hr Q2H PRN IV For Potassium 3.3 - 3.5 mEq/L ; Start 11/19/16 at 11:15 Magnesium Sulfate/ Sodium Chloride (Magnesium Sulfate Inj/NS Inj) 100 ml @ 50 mls/hr UNSCH PRN IV For Magnesium 0.9 - 1.1 mg/dL; Start 11/19/16 at 11:15 Magnesium Oxide 800 mg 800 mg UNSCH PRN PO For Magnesium 1.2 - 1.6 mg/dL; Start 11/19/16 at 11:15 Magnesium Sulfate/ Sodium Chloride (Magnesium Sulfate Inj/NS Inj) 100 ml @ 50 mls/hr UNSCH PRN IV For Magnesium 1.2 - 1.6 mg/dL; Start 11/19/16 at 11:15 Potassium Phosphate 2000 mg 2,000 mg Q4H PRN PO For Phosphorus < 2.5 mg/dL; Start 11/19/16 at 11:15 Sodium Phosphate/ Sodium Chloride (Sodium Phosphate Inj/NS 250 ml Inj) 250 ml @ 42 mls/hr UNSCH PRN IV For Phosphorus < 2.5 mg/dL; Start 11/19/16 at 11:15 Potassium Chloride (KCl 40 Meq/30 ml Liq) 40 meq UNSCH PRN PO/TUBE SEE LABEL COMMENTS; Start 11/19/16 at 11:15 Potassium Phosphate 2000 mg 2,000 mg UNSCH PRN PO/TUBE SEE LABEL COMMENTS; Start 11/19/16 at 11:15 Potassium Phosphate 30 mmol/ Sodium Chloride 260 ml @ 42 mls/hr UNSCH PRN IV SEE LABEL COMMENTS; Start 11/19/16 at 11:15 Vancomycin HCl/ Sodium Chloride (Vancomycin Inj/ NS 250 ml Inj) 262.5 ml @ 250 mls/hr Q12H IV ; Start 11/21/16 at 11:00 Miscellaneous Information SPECIFIC LAB TO BE DRAWN:[facility]... ONCE ONCE XX ; Start 11/21/16 at 22:45; Stop 11/21/16 at 22:46 A/P Assessment and Plan A/P - acute hypoxemic respiratory failure due to right upper lobe pneumonia/ COPD exacerbation continue with broad spectrum IV Abx- continue IV steroid- on neb treatment- keep on oxygen to keep O2 sat > 90%- pulmonary following. -sepsis due to pneumonia; continue Abx as noted above -hypertension; continue metoprolol and norvasc- will monitor and adjust the regimen as needed. -diabetes mellitus; accu-check with SSI- will consider adding long-acting insulin if blood sugar levels remain elevated. -DVT/GI prophylaxis with Lovenox and PPI still requiring high-flow oxygen. will keep in ICU for now for close monitoring. Trevor Acuna MD Nov 21, 2016 08:59
[2016-11-21] MEDS ORDERED: VANCOMYCIN INJ 1,250 MG in SODIUM CHLOR 0.9% 250 ML INJ 250 ML IV SCH (11:00)
[2016-11-21] MEDS: ENOXAPARIN SODIUM 40 MG/0.4 ML SYRINGE SQ SCH (14:38)
[2016-11-21] MEDS: AZITHROMYCIN INJ 500 MG in SODIUM CHLOR 0.9% 250 ML INJ 250 ML IV SCH (20:04)
[2016-11-21] MEDS: VANCOMYCIN INJ 1,500 MG in SODIUM CHLORID 0.9% 500 ML INJ 500 ML IV SCH (21:00)
[2016-11-21] MEDS ORDERED: PHARMACY ORDERED LAB XX ONE (22:45)
[2016-11-21] MEDS: ZOLPIDEM TARTRATE 5 MG TAB PO PRN (23:59)
[2016-11-22] VITALS (15 sets, daily range): BP systolic 139–175; BP diastolic 63–79; PULSE 55–83; RESP 18–28; TEMP 97.7–98.1; O2SAT 88–96
[2016-11-22] MEDS: methylPREDNISolone SOD SUCC 40 MG/1 ML VIAL IV PUSH SCH ×4 (05:12→21:43)
[2016-11-22] MEDS: PIPERACIL-TAZO 4.5 GM PREMIX 100 ML IV SCH ×4 (05:12→23:00)
[2016-11-22] MEDS: PRIMIDONE 50 MG TAB PO SCH ×2 (05:16→21:42)
[2016-11-22] MEDS: INSULIN ASPART SUPPLEMENTAL SCALE SQ SCH ×4 (07:00→21:56)
[2016-11-22] MEDS: SODIUM CHLOR 0.9% 1000 ML INJ 1,000 ML IV SCH ×2 (07:31→16:29)
[2016-11-22] MEDS: RESP: ALBUTEROL 2.5 MG/IPRATROPIUM 0.5 MG NEB (PRN) NEB (07:36)
[2016-11-22] MEDS: SODIUM CHLORIDE 0.9% FLUSH 5 ML FLUSH FLUSH SCH ×2 (07:52→21:43)
[2016-11-22] MEDS: VANCOMYCIN INJ 1,500 MG in SODIUM CHLORID 0.9% 500 ML INJ 500 ML IV SCH ×2 (07:52→21:43)
[2016-11-22] MEDS: BUDESONIDE-FORMOTEROL 160/4.5 MCG INHALER INH SCH ×2 (07:52→21:00)
[2016-11-22] MEDS: GABAPENTIN 100 MG CAP PO SCH ×2 (07:53→21:42)
[2016-11-22] MEDS: METOPROLOL TARTRATE 50 MG TAB PO SCH ×4 (07:53→21:42)
[2016-11-22] MEDS: hydrALAZINE HCL 25 MG TAB PO SCH ×2 (07:53→21:42)
[2016-11-22] MEDS: MONTELUKAST SODIUM 10 MG TAB PO SCH (07:53)
[2016-11-22] MEDS: PANTOPRAZOLE SOD 20 MG DELAYED RELEASE TAB PO SCH ×2 (07:53→21:42)
[2016-11-22] MEDS: guaiFENesin E.R. 600 MG TAB PO SCH ×2 (07:53→21:42)
--- NOTE | 2016-11-22 12:22 | HHI.PR ---
Subjective Remarks still with some sob and on high flow oxygen but it seems that he's improving. still with productive cough of brownish sputum. no fever. Objective Vitals Vital Signs Date Time Temp Pulse Resp B/P Pulse Ox O2 Delivery O2 Flow Rate FiO2 11/22/16 10:00 62 11/22/16 08:00 97.7 70 25 171/77 91 11/22/16 08:00 72 11/22/16 07:37 91 High Flow Nasal Cannula 30.00 70 11/22/16 07:00 Nasal Cannula 70 11/22/16 06:00 66 11/22/16 04:00 60 11/22/16 04:00 63 18 175/74 90 11/22/16 02:00 61 11/22/16 00:00 55 11/22/16 00:00 98.1 55 18 139/63 88 11/21/16 22:00 61 11/21/16 20:00 52 11/21/16 20:00 98.2 58 15 169/79 97 11/21/16 19:50 92 High Flow Nasal Cannula 30.00 70 11/21/16 19:00 Nasal Cannula 8.00 35 11/21/16 18:00 71 11/21/16 16:00 70 11/21/16 16:00 97.7 70 21 139/63 89 11/21/16 14:00 75 11/21/16 13:27 High Flow Nasal Cannula 30.00 70 I/O 11/21/16 11/21/16 11/21/16 11/22/16 11/22/16 11/22/16 07:00 15:00 23:00 07:00 15:00 23:00 Intake Total 610 ml 658 ml 1428 ml 905 ml Output Total 920 ml 850 ml 1350 ml 400 ml Balance -310 ml -192 ml 78 ml 505 ml Intake Oral 420 ml 240 ml 120 ml IV Total 610 ml 238 ml 1188 ml 785 ml Output Urine Total 920 ml 850 ml 1350 ml 400 ml # Bowel Movements 1 0 0 Result Diagram: 11/21/16 0448 11/22/16 0334 Imaging Last Impressions Chest X-Ray 11/21/16 0600 Signed Impressions: Service Date/Time: Monday, November 21, 2016 03:35 - CONCLUSION: 1. Persistent right upper lobe airspace infiltrate, unchanged. 2. Developing bibasilar effusions, left greater than right. José Luis Dickinson MD CT Angiography 11/16/16 0000 Signed Impressions: Service Date/Time: Wednesday, November 16, 2016 20:34 - CONCLUSION: No evidence of pulmonary embolism. Consolidating airspace disease in the right upper lobe. Mild subsegmental air space disease in both lower lobes. Sacha Walls MD Objective Remarks GENERAL: with some sob and cough CARDIOVASCULAR: Regular rate and regular rhythm without murmurs, gallops, or rubs. RESPIRATORY: diminished air entry on right base GASTROINTESTINAL: Abdomen soft, non-tender, nondistended. Normal, active bowel sounds MUSCULOSKELETAL: Extremities without clubbing, cyanosis, or edema. NEURO: Alert & Oriented x4 to person, place, time, situation. Moves all ext x4 Medications and IVs Current Medications Ceftriaxone Sodium 1000 mg/ Sodium Chloride 25 ml @ 50 mls/hr ONCE ONCE IV Last administered on 11/16/16 20:10; Start 11/16/16 at 20:00; Stop 11/16/16 at 20: 29; Status DC Azithromycin 500 mg/Sodium Chloride 250 ml @ 250 mls/hr ONCE ONCE IV Last administered on 11/16/16 20:09; Start 11/16/16 at 20:00; Stop 11/16/16 at 20:59; Status DC Sodium Chloride (NS 1000 ml Inj) 1,000 ml @ 1,000 mls/hr Q1H IV Last administered on 11/16/16 20:27; Start 11/16/16 at 20:20; Stop 11/16/16 at 21:19; Status DC Potassium Chloride 40 meq 40 meq ONCE ONCE PO Last administered on 11/16/16 20 :27; Start 11/16/16 at 20:30; Stop 11/16/16 at 20:31; Status DC Sodium Chloride (NS 1000 ml Inj) 1,000 ml @ 999 mls/hr BOLUS ONCE IV Last administered on 11/16/16 21:04; Start 11/16/16 at 20:30; Stop 11/16/16 at 21:30; Status DC Iohexol 73 ml 73 ml STK-MED ONCE IV Last administered on 11/16/16 20:36; Start 11/16/16 at 20:36; Stop 11/16/16 at 20:37; Status DC Ceftriaxone Sodium 1000 mg/ Sodium Chloride 100 ml @ 200 mls/hr Q24H IV ; Start 11/17/16 at 20:00; Stop 11/17/16 at 20:00; Status DC Azithromycin/ Sodium Chloride (Zithromax Inj/ NS 250 ml Inj) 250 ml @ 250 mls/ hr Q24H IV Last administered on 11/20/16 20:57; Start 11/17/16 at 21:00; Stop at 12:00; Status DC Guaifenesin (Mucinex Er) 600 mg BID PO Last administered on 11/22/16 07:53; Start 11/17/16 at 09:00 Budesonide/ Formoterol Fumarate (Symbicort 160-4.5 Inh) 2 puff Q12HR INH Last administered on 11/22/16 07:52; Start 11/16/16 at 21:45 Albuterol/ Ipratropium (Duoneb Neb) 1 ampule Q4HR WHILE AWAKE NEB NEB Last administered on 11/17/16 20:12; Start 11/17/16 at 08:00; Stop 11/17/16 at 23:16; Status DC Albuterol/ Ipratropium (Duoneb Neb) 1 ampule Q2HR NEB PRN NEB SOB/WHEEZING Last administered on 11/22/16 07:36; Start 11/16/16 at 21:45 Dextrose (D50w (Vial) Inj) 25 ml UNSCH PRN IV PUSH HYPOGLYCEMIA-SEE COMMENTS; Start 11/16/16 at 21:45; Stop 11/19/16 at 06:32; Status DC Glucagon (Glucagon Inj) 1 mg UNSCH PRN OTHER HYPOGLYCEMIA-SEE COMMENTS; Start 11/16/16 at 21:45; Stop 11/19/16 at 06:32; Status DC Insulin Aspart 1 1 ACHS SLIDING SCALE SQ Last administered on 11/19/16 06:20; Start 11/17/16 at 07:00; Stop 11/19/16 at 06:30; Status DC Sodium Chloride (NS 1000 ml Inj) 1,000 ml @ 100 mls/hr Q10H IV Last administered on 11/22/16 07:31; Start 11/16/16 at 21:31 IV Flush (NS Flush) 2 ml UNSCH PRN FLUSH FLUSH AFTER USING IV ACCESS; Start 11/16/16 at 21:45 IV Flush (NS Flush) 2 ml BID FLUSH Last administered on 11/22/16 07:52; Start 11/17/16 at 09:00 Ondansetron HCl (Zofran Inj) 4 mg Q6H PRN IVP NAUSEA OR VOMITING; Start at 21:45 Bisacodyl (Dulcolax Supp) 10 mg DAILY PRN AL CONSTIPATION; Start 11/16/16 at 21: 45 Acetaminophen (Tylenol) 650 mg Q6H PRN PO FEVER/PAIN SCALE 1 TO 2 Last administered on 11/17/16 19:42; Start 11/16/16 at 21:45 Acetaminophen/ Hydrocodone Bitart ([place] 5-325 Mg) 1 tab Q4H PRN PO PAIN SCALE 3 TO 5; Start 11/16/16 at 21:45 Morphine Sulfate (Morphine Inj) 2 mg Q3H PRN IV Pain 6-10; Start 11/16/16 at 21: 45 Amlodipine Besylate (Norvasc) 10 mg DAILY PO Last administered on 11/22/16 07: 53; Start 11/17/16 at 09:00 Gabapentin (Neurontin) 100 mg BID PO Last administered on 11/22/16 07:53; Start 11/17/16 at 09:00 Hydralazine HCl (Apresoline) 25 mg BID PO Last administered on 11/22/16 07:53; Start 11/17/16 at 09:00 Metoprolol Tartrate (Lopressor) 100 mg BID PO Last administered on 11/18/16 08: 24; Start 11/17/16 at 09:00; Stop 11/18/16 at 13:19; Status DC Montelukast Sodium (Singulair) 10 mg DAILY PO Last administered on 11/22/16 07: 53; Start 11/17/16 at 09:00 Pantoprazole Sodium (Protonix) 20 mg BID PO Last administered on 11/22/16 07:53 ; Start 11/17/16 at 09:00 Primidone (Mysoline) 50 mg HS PO Last administered on 11/21/16 21:00; Start 11/17/16 at 21:00 Primidone (Mysoline) 100 mg DAILY@0600 PO Last administered on 11/22/16 05:16; Start 11/17/16 at 06:00 Diphenhydramine HCl 25 mg 25 mg ONCE ONCE PO Last administered on 11/17/16 02: 35; Start 11/17/16 at 02:30; Stop 11/17/16 at 02:33; Status DC Potassium Chloride 100 ml @ 50 mls/hr Q2H IV Last administered on 11/17/16 11: 24; Start 11/17/16 at 08:00; Stop 11/17/16 at 11:59; Status DC Magnesium Sulfate/ Dextrose (Magnesium Sulfate 1 Gm Premix) 100 ml @ 100 mls/ hr ONCE ONCE IV Last administered on 11/17/16 14:01; Start 11/17/16 at 09:15; Stop 11/17/16 at 10:21; Status DC Benzonatate 200 mg 200 mg Q8H PRN PO COUGH; Start 11/17/16 at 09:15 Pharmacy Profile Note 0 ml @ 0 mls/hr UNSCH OTHER ; Start 11/17/16 at 15:45 Piperacillin Sod/ Tazobactam Sod (Zosyn 4.5 Gm Premix) 100 ml @ 200 mls/hr Q6H IV Last administered on 11/22/16 11:31; Start 11/17/16 at 17:00 Tuberculin PPD (Ppd Inj) 5 units ONCE ONCE ID Last administered on 11/17/16 17 :46; Start 11/17/16 at 17:00; Stop 11/17/16 at 17:01; Status DC Miscellaneous Information 1 1 Q24H OTHER Last administered on 11/20/16 17:00; Start 11/18/16 at 17:00; Stop 11/20/16 at 17:01; Status DC Vancomycin HCl/ Sodium Chloride (Vancomycin Inj/ NS 500 ml Inj) 517.5 ml @ 250 mls/hr Q24H IV Last administered on 11/20/16 18:19; Start 11/17/16 at 18:00; Stop 11/20/16 at 19:12; Status DC Miscellaneous Information SPECIFIC LAB TO BE TERRELL... ONCE ONCE XX Last administered on 11/20/16 18:00; Start 11/20/16 at 17:45; Stop 11/20/16 at 17:46; Status DC Potassium Chloride (KCl) 20 meq ONCE ONCE PO Last administered on 11/17/16 21: 10; Start 11/17/16 at 21:00; Stop 11/17/16 at 21:01; Status DC Methylprednisolone Sodium Succinate (SoluMEDROL INJ) 125 mg ONCE ONCE IV PUSH Last administered on 11/17/16 21:10; Start 11/17/16 at 21:00; Stop 11/17/16 at 21: 01; Status DC Methylprednisolone Sodium Succinate 40 mg 40 mg Q6H IV PUSH Last administered on 11/22/16 07:53; Start 11/18/16 at 03:00 Calcium Gluconate/ Sodium Chloride (Calcium Gluconate Inj/NS Inj) 110 ml @ 110 mls/hr ONCE ONCE IV Last administered on 11/17/16 22:54; Start 11/17/16 at 22: 00; Stop 11/17/16 at 22:59; Status DC Albuterol/ Ipratropium (Duoneb Neb) 1 ampule Q4HR NEB NEB Last administered on 11/21/16 23:45; Start 11/18/16 at 00:00; Stop 11/22/16 at 00:00; Status DC Furosemide (Lasix Inj) 20 mg ONCE ONCE IV PUSH Last administered on 11/18/16 01:04; Start 11/18/16 at 00:45; Stop 11/18/16 at 00:46; Status DC Guaifenesin/ Dextromethorphan (Robitussin Dm 200-20 Mg/10 ml Liq) 10 ml Q4H PRN PO cough; Start 11/18/16 at 00:45 Temazepam (Restoril) 7.5 mg ONCE ONCE PO Last administered on 11/18/16 01:51; Start 11/18/16 at 01:45; Stop 11/18/16 at 01:46; Status DC Potassium Chloride (KCl) 40 meq NOW ONCE PO Last administered on 11/18/16 08: 24; Start 11/18/16 at 08:15; Stop 11/18/16 at 08:16; Status DC Enoxaparin Sodium (Lovenox Inj) 40 mg Q24H SQ Last administered on 11/21/16 14: 38; Start 11/18/16 at 14:00 Metoprolol Tartrate (Lopressor) 50 mg QID PO Last administered on 11/22/16 07: 53; Start 11/18/16 at 18:00 Zolpidem Tartrate (Ambien) 5 mg HS PRN PO insomnia Last administered on 23:59; Start 11/18/16 at 18:00 Potassium Chloride (KCl) 20 meq NOW ONCE PO Last administered on 11/19/16 06: 24; Start 11/19/16 at 06:15; Stop 11/19/16 at 06:16; Status DC Potassium Chloride (KCl) 20 meq ONCE ONCE PO Last administered on 11/19/16 06: 24; Start 11/19/16 at 06:30; Stop 11/19/16 at 06:31; Status DC Potassium Chloride (KCl) 20 meq ONCE ONCE PO ; Start 11/19/16 at 06:30; Stop 11/19/16 at 06:31; Status Cancel Insulin Aspart (NovoLOG SUPPLEMENTAL SCALE) 1 ACHS SQ Last administered on 07:00; Start 11/19/16 at 07:00 Dextrose (D50w (Vial) Inj) 25 ml UNSCH PRN IV HYPOGLYCEMIA-SEE COMMENTS; Start 11/19/16 at 06:30 Glucagon 1 mg 1 mg UNSCH PRN IM/SQ HYPOGLYCEMIA-SEE COMMENTS; Start 11/19/16 at 06:30 Potassium Chloride 100 ml @ 50 mls/hr Q2H PRN IV For Potassium 2.8 - 3.2 mEq/L ; Start 11/19/16 at 11:15 Potassium Chloride (KCl 20 Meq Premix Inj) 100 ml @ 50 mls/hr Q2H PRN IV For Potassium 2.8 - 3.2 mEq/L Last administered on 11/19/16 15:55; Start 11/19/16 at 11:15 Potassium Chloride 40 meq 40 meq UNSCH PRN PO/NG For Potassium 3.3 - 3.5 mEq/L Last administered on 11/19/16 18:03; Start 11/19/16 at 11:15 Potassium Chloride 100 ml @ 25 mls/hr UNSCH PRN IV For Potassium 3.3 - 3.5 mEq /L; Start 11/19/16 at 11:15 Potassium Chloride 100 ml @ 50 mls/hr Q2H PRN IV For Potassium 3.3 - 3.5 mEq/L ; Start 11/19/16 at 11:15 Magnesium Sulfate/ Sodium Chloride (Magnesium Sulfate Inj/NS Inj) 100 ml @ 50 mls/hr UNSCH PRN IV For Magnesium 0.9 - 1.1 mg/dL; Start 11/19/16 at 11:15 Magnesium Oxide 800 mg 800 mg UNSCH PRN PO For Magnesium 1.2 - 1.6 mg/dL; Start 11/19/16 at 11:15 Magnesium Sulfate/ Sodium Chloride (Magnesium Sulfate Inj/NS Inj) 100 ml @ 50 mls/hr UNSCH PRN IV For Magnesium 1.2 - 1.6 mg/dL; Start 11/19/16 at 11:15 Potassium Phosphate 2000 mg 2,000 mg Q4H PRN PO For Phosphorus < 2.5 mg/dL; Start 11/19/16 at 11:15 Sodium Phosphate/ Sodium Chloride (Sodium Phosphate Inj/NS 250 ml Inj) 250 ml @ 42 mls/hr UNSCH PRN IV For Phosphorus < 2.5 mg/dL; Start 11/19/16 at 11:15 Potassium Chloride (KCl 40 Meq/30 ml Liq) 40 meq UNSCH PRN PO/TUBE SEE LABEL COMMENTS; Start 11/19/16 at 11:15 Potassium Phosphate 2000 mg 2,000 mg UNSCH PRN PO/TUBE SEE LABEL COMMENTS; Start 11/19/16 at 11:15 Potassium Phosphate 30 mmol/ Sodium Chloride 260 ml @ 42 mls/hr UNSCH PRN IV SEE LABEL COMMENTS; Start 11/19/16 at 11:15 Vancomycin HCl/ Sodium Chloride (Vancomycin Inj/ NS 250 ml Inj) 262.5 ml @ 250 mls/hr Q12H IV Last administered on 11/21/16 10:46; Start 11/21/16 at 11:00; Stop 11/21/16 at 11:58; Status DC Miscellaneous Information SPECIFIC LAB TO BE DRAWN:[facility]... ONCE ONCE XX ; Start 11/21/16 at 22:45; Stop 11/21/16 at 22:46; Status Cancel Vancomycin HCl/ Sodium Chloride (Vancomycin Inj/ NS 500 ml Inj) 515 ml @ 250 mls/hr Q12H IV Last administered on 11/22/16 07:52; Start 11/21/16 at 21:00 Miscellaneous Information SPECIFIC LAB TO BE DRAWN:VANCOMYCIN TROUGH DATE TO... ONCE ONCE XX ; Start 11/23/16 at 08:45; Stop 11/23/16 at 08:46 Azithromycin/ Sodium Chloride (Zithromax Inj/ NS 250 ml Inj) 250 ml @ 250 mls/ hr Q24H IV Last administered on 11/21/16t 20:04; Start 11/21/16 at 20:00 A/P Assessment and Plan A/P - acute hypoxemic respiratory failure due to right upper lobe pneumonia/ COPD exacerbation- improving slowly continue with broad spectrum IV Abx- continue IV steroid- on neb treatment- keep on oxygen to keep O2 sat > 90%- pulmonary following. -sepsis due to pneumonia; continue Abx as noted above -hypertension; continue metoprolol and norvasc- will monitor and adjust the regimen as needed. -diabetes mellitus; accu-check with SSI- will start long-acting insulin today. -DVT/GI prophylaxis with Lovenox and PPI still requiring high-flow oxygen. will keep in ICU for now for close monitoring. Trevor Acuna MD Nov 22, 2016 12:22
[2016-11-22] MEDS: ENOXAPARIN SODIUM 40 MG/0.4 ML SYRINGE SQ SCH (14:06)
[2016-11-22] MEDS: AZITHROMYCIN INJ 500 MG in SODIUM CHLOR 0.9% 250 ML INJ 250 ML IV SCH (20:30)
[2016-11-22] MEDS: RESP: ALBUTEROL 2.5 MG/IPRATROPIUM 0.5 MG NEB (SCH) NEB (20:48)
[2016-11-22] MEDS: INSULIN DETEMIR 100 UNITS/ML VIAL SQ SCH (21:43)
[2016-11-23] VITALS (15 sets, daily range): BP systolic 141–159; BP diastolic 64–79; PULSE 52–70; RESP 15–24; TEMP 97.2–98; O2SAT 87–93
[2016-11-23] MEDS: SODIUM CHLOR 0.9% 1000 ML INJ 1,000 ML IV SCH (03:31)
[2016-11-23] MEDS: PIPERACIL-TAZO 4.5 GM PREMIX 100 ML IV SCH ×3 (05:55→16:34)
[2016-11-23] MEDS: PRIMIDONE 50 MG TAB PO SCH ×2 (05:56→21:40)
[2016-11-23] MEDS: RESP: ALBUTEROL 2.5 MG/IPRATROPIUM 0.5 MG NEB (SCH) NEB ×3 (07:33→20:46)
[2016-11-23] MEDS: SODIUM CHLORIDE 0.9% FLUSH 5 ML FLUSH FLUSH SCH ×2 (08:06→19:56)
[2016-11-23] MEDS: INSULIN ASPART SUPPLEMENTAL SCALE SQ SCH ×4 (08:06→21:40)
[2016-11-23] MEDS: METOPROLOL TARTRATE 50 MG TAB PO SCH ×6 (08:06→21:00)
[2016-11-23] MEDS: BUDESONIDE-FORMOTEROL 160/4.5 MCG INHALER INH SCH ×2 (08:07→21:33)
[2016-11-23] MEDS: methylPREDNISolone SOD SUCC 40 MG/1 ML VIAL IV PUSH SCH (08:07)
[2016-11-23] MEDS: GABAPENTIN 100 MG CAP PO SCH ×2 (08:07→21:42)
[2016-11-23] MEDS: MONTELUKAST SODIUM 10 MG TAB PO SCH (08:07)
[2016-11-23] MEDS: guaiFENesin E.R. 600 MG TAB PO SCH ×2 (08:07→21:40)
[2016-11-23] MEDS: PANTOPRAZOLE SOD 20 MG DELAYED RELEASE TAB PO SCH ×2 (08:07→21:40)
[2016-11-23] MEDS: hydrALAZINE HCL 25 MG TAB PO SCH ×2 (08:07→21:40)
[2016-11-23] MEDS: VANCOMYCIN INJ 1,500 MG in SODIUM CHLORID 0.9% 500 ML INJ 500 ML IV SCH (08:29)
[2016-11-23] MEDS ORDERED: PHARMACY ORDERED LAB XX ONE (08:45)
--- NOTE | 2016-11-23 12:11 | HHI.PR ---
Subjective Remarks still with some sob , cough. on high flow oxygen. has some pleuritic chest pain. no fever. Objective Vitals Vital Signs Date Time Temp Pulse Resp B/P Pulse Ox O2 Delivery O2 Flow Rate FiO2 11/23/16 10:00 60 11/23/16 08:00 97.2 57 19 158/79 90 11/23/16 08:00 57 11/23/16 07:34 91 High Flow Nasal Cannula 20.00 65 11/23/16 07:00 Nasal Cannula 11/23/16 06:00 60 11/23/16 04:00 70 24 157/71 91 11/23/16 04:00 70 11/23/16 02:00 61 11/23/16 00:00 98.0 52 15 159/72 87 11/23/16 00:00 61 11/22/16 22:00 58 11/22/16 20:48 96 High Flow Nasal Cannula 20.00 65 11/22/16 20:00 97.8 61 20 169/79 95 11/22/16 20:00 61 11/22/16 19:00 Nasal Cannula 70 11/22/16 18:00 62 11/22/16 16:00 98.0 65 19 169/79 92 11/22/16 16:00 65 11/22/16 14:00 68 11/22/16 13:23 93 High Flow Nasal Cannula 30.00 70 I/O 11/22/16 11/22/16 11/22/16 11/23/16 11/23/16 11/23/16 07:00 15:00 23:00 07:00 15:00 23:00 Intake Total 905 ml 1510 ml 2262 ml 1284 ml Output Total 400 ml 1850 ml 1150 ml 2100 ml Balance 505 ml -340 ml 1112 ml -816 ml Intake Oral 120 ml 360 ml 240 ml 240 ml IV Total 785 ml 1150 ml 2022 ml 1044 ml Output Urine Total 400 ml 1850 ml 1150 ml 2100 ml # Bowel Movements 0 1 1 0 Result Diagram: 11/21/16 0448 11/22/16 0334 Imaging Last Impressions Chest X-Ray 11/21/16 0600 Signed Impressions: Service Date/Time: Monday, November 21, 2016 03:35 - CONCLUSION: 1. Persistent right upper lobe airspace infiltrate, unchanged. 2. Developing bibasilar effusions, left greater than right. José Luis Dickinson MD CT Angiography 11/16/16 0000 Signed Impressions: Service Date/Time: Wednesday, November 16, 2016 20:34 - CONCLUSION: No evidence of pulmonary embolism. Consolidating airspace disease in the right upper lobe. Mild subsegmental air space disease in both lower lobes. Sacha Walls MD Objective Remarks GENERAL: with some sob and cough CARDIOVASCULAR: Regular rate and regular rhythm without murmurs, gallops, or rubs. RESPIRATORY: diminished air entry on right base GASTROINTESTINAL: Abdomen soft, non-tender, nondistended. Normal, active bowel sounds MUSCULOSKELETAL: Extremities without clubbing, cyanosis, or edema. NEURO: Alert & Oriented x4 to person, place, time, situation. Moves all ext x4 Medications and IVs Current Medications Ceftriaxone Sodium 1000 mg/ Sodium Chloride 25 ml @ 50 mls/hr ONCE ONCE IV Last administered on 11/16/16 20:10; Start 11/16/16 at 20:00; Stop 11/16/16 at 20: 29; Status DC Azithromycin 500 mg/Sodium Chloride 250 ml @ 250 mls/hr ONCE ONCE IV Last administered on 11/16/16 20:09; Start 11/16/16 at 20:00; Stop 11/16/16 at 20:59; Status DC Sodium Chloride (NS 1000 ml Inj) 1,000 ml @ 1,000 mls/hr Q1H IV Last administered on 11/16/16 20:27; Start 11/16/16 at 20:20; Stop 11/16/16 at 21:19; Status DC Potassium Chloride 40 meq 40 meq ONCE ONCE PO Last administered on 11/16/16 20 :27; Start 11/16/16 at 20:30; Stop 11/16/16 at 20:31; Status DC Sodium Chloride (NS 1000 ml Inj) 1,000 ml @ 999 mls/hr BOLUS ONCE IV Last administered on 11/16/16 21:04; Start 11/16/16 at 20:30; Stop 11/16/16 at 21:30; Status DC Iohexol 73 ml 73 ml STK-MED ONCE IV Last administered on 11/16/16 20:36; Start 11/16/16 at 20:36; Stop 11/16/16 at 20:37; Status DC Ceftriaxone Sodium 1000 mg/ Sodium Chloride 100 ml @ 200 mls/hr Q24H IV ; Start 11/17/16 at 20:00; Stop 11/17/16 at 20:00; Status DC Azithromycin/ Sodium Chloride (Zithromax Inj/ NS 250 ml Inj) 250 ml @ 250 mls/ hr Q24H IV Last administered on 11/20/16 20:57; Start 11/17/16 at 21:00; Stop at 12:00; Status DC Guaifenesin (Mucinex Er) 600 mg BID PO Last administered on 11/23/16 08:07; Start 11/17/16 at 09:00 Budesonide/ Formoterol Fumarate (Symbicort 160-4.5 Inh) 2 puff Q12HR INH Last administered on 11/23/16 08:07; Start 11/16/16 at 21:45 Albuterol/ Ipratropium (Duoneb Neb) 1 ampule Q4HR WHILE AWAKE NEB NEB Last administered on 11/17/16 20:12; Start 11/17/16 at 08:00; Stop 11/17/16 at 23:16; Status DC Albuterol/ Ipratropium (Duoneb Neb) 1 ampule Q2HR NEB PRN NEB SOB/WHEEZING Last administered on 11/22/16 07:36; Start 11/16/16 at 21:45 Dextrose (D50w (Vial) Inj) 25 ml UNSCH PRN IV PUSH HYPOGLYCEMIA-SEE COMMENTS; Start 11/16/16 at 21:45; Stop 11/19/16 at 06:32; Status DC Glucagon (Glucagon Inj) 1 mg UNSCH PRN OTHER HYPOGLYCEMIA-SEE COMMENTS; Start 11/16/16 at 21:45; Stop 11/19/16 at 06:32; Status DC Insulin Aspart 1 1 ACHS SLIDING SCALE SQ Last administered on 11/19/16 06:20; Start 11/17/16 at 07:00; Stop 11/19/16 at 06:30; Status DC Sodium Chloride (NS 1000 ml Inj) 1,000 ml @ 100 mls/hr Q10H IV Last administered on 11/23/16 03:31; Start 11/16/16 at 21:31 IV Flush (NS Flush) 2 ml UNSCH PRN FLUSH FLUSH AFTER USING IV ACCESS; Start 11/16/16 at 21:45 IV Flush (NS Flush) 2 ml BID FLUSH Last administered on 11/23/16 08:06; Start 11/17/16 at 09:00 Ondansetron HCl (Zofran Inj) 4 mg Q6H PRN IVP NAUSEA OR VOMITING; Start at 21:45 Bisacodyl (Dulcolax Supp) 10 mg DAILY PRN [place] CONSTIPATION; Start 11/16/16 at 21: 45 Acetaminophen (Tylenol) 650 mg Q6H PRN PO FEVER/PAIN SCALE 1 TO 2 Last administered on 11/17/16 19:42; Start 11/16/16 at 21:45 Acetaminophen/ Hydrocodone Bitart ([place] 5-325 Mg) 1 tab Q4H PRN PO PAIN SCALE 3 TO 5; Start 11/16/16 at 21:45 Morphine Sulfate (Morphine Inj) 2 mg Q3H PRN IV Pain 6-10; Start 11/16/16 at 21: 45 Amlodipine Besylate (Norvasc) 10 mg DAILY PO Last administered on 11/23/16 08: 06; Start 11/17/16 at 09:00 Gabapentin (Neurontin) 100 mg BID PO Last administered on 11/23/16 08:07; Start 11/17/16 at 09:00 Hydralazine HCl (Apresoline) 25 mg BID PO Last administered on 11/23/16 08:07 ; Start 11/17/16 at 09:00 Metoprolol Tartrate (Lopressor) 100 mg BID PO Last administered on 11/18/16 08: 24; Start 11/17/16 at 09:00; Stop 11/18/16 at 13:19; Status DC Montelukast Sodium (Singulair) 10 mg DAILY PO Last administered on 11/23/16 08 :07; Start 11/17/16 at 09:00 Pantoprazole Sodium (Protonix) 20 mg BID PO Last administered on 11/23/16 08: 07; Start 11/17/16 at 09:00 Primidone (Mysoline) 50 mg HS PO Last administered on 11/22/16 21:42; Start 11/17/16 at 21:00 Primidone (Mysoline) 100 mg DAILY@0600 PO Last administered on 11/23/16 05:56 ; Start 11/17/16 at 06:00 Diphenhydramine HCl 25 mg 25 mg ONCE ONCE PO Last administered on 11/17/16 02: 35; Start 11/17/16 at 02:30; Stop 11/17/16 at 02:33; Status DC Potassium Chloride 100 ml @ 50 mls/hr Q2H IV Last administered on 11/17/16 11: 24; Start 11/17/16 at 08:00; Stop 11/17/16 at 11:59; Status DC Magnesium Sulfate/ Dextrose (Magnesium Sulfate 1 Gm Premix) 100 ml @ 100 mls/ hr ONCE ONCE IV Last administered on 11/17/16 14:01; Start 11/17/16 at 09:15; Stop 11/17/16 at 10:21; Status DC Benzonatate 200 mg 200 mg Q8H PRN PO COUGH Last administered on 11/22/16 21:42 ; Start 11/17/16 at 09:15 Pharmacy Profile Note 0 ml @ 0 mls/hr UNSCH OTHER ; Start 11/17/16 at 15:45 Piperacillin Sod/ Tazobactam Sod (Zosyn 4.5 Gm Premix) 100 ml @ 200 mls/hr Q6H IV Last administered on 11/23/16 11:06; Start 11/17/16 at 17:00 Tuberculin PPD (Ppd Inj) 5 units ONCE ONCE ID Last administered on 11/17/16 17 :46; Start 11/17/16 at 17:00; Stop 11/17/16 at 17:01; Status DC Miscellaneous Information 1 1 Q24H OTHER Last administered on 11/20/16 17:00; Start 11/18/16 at 17:00; Stop 11/20/16 at 17:01; Status DC Vancomycin HCl/ Sodium Chloride (Vancomycin Inj/ NS 500 ml Inj) 517.5 ml @ 250 mls/hr Q24H IV Last administered on 11/20/16 18:19; Start 11/17/16 at 18:00; Stop 11/20/16 at 19:12; Status DC Miscellaneous Information SPECIFIC LAB TO BE TERRELL... ONCE ONCE XX Last administered on 11/20/16 18:00; Start 11/20/16 at 17:45; Stop 11/20/16 at 17:46; Status DC Potassium Chloride (KCl) 20 meq ONCE ONCE PO Last administered on 11/17/16 21: 10; Start 11/17/16 at 21:00; Stop 11/17/16 at 21:01; Status DC Methylprednisolone Sodium Succinate (SoluMEDROL INJ) 125 mg ONCE ONCE IV PUSH Last administered on 11/17/16 21:10; Start 11/17/16 at 21:00; Stop 11/17/16 at 21: 01; Status DC Methylprednisolone Sodium Succinate 40 mg 40 mg Q6H IV PUSH Last administered on 11/22/16 14:06; Start 11/18/16 at 03:00; Stop 11/22/16 at 17:13; Status DC Calcium Gluconate/ Sodium Chloride (Calcium Gluconate Inj/NS Inj) 110 ml @ 110 mls/hr ONCE ONCE IV Last administered on 11/17/16 22:54; Start 11/17/16 at 22: 00; Stop 11/17/16 at 22:59; Status DC Albuterol/ Ipratropium (Duoneb Neb) 1 ampule Q4HR NEB NEB Last administered on 11/21/16 23:45; Start 11/18/16 at 00:00; Stop 11/22/16 at 00:00; Status DC Furosemide (Lasix Inj) 20 mg ONCE ONCE IV PUSH Last administered on 11/18/16 01:04; Start 11/18/16 at 00:45; Stop 11/18/16 at 00:46; Status DC Guaifenesin/ Dextromethorphan (Robitussin Dm 200-20 Mg/10 ml Liq) 10 ml Q4H PRN PO cough; Start 11/18/16 at 00:45 Temazepam (Restoril) 7.5 mg ONCE ONCE PO Last administered on 11/18/16 01:51; Start 11/18/16 at 01:45; Stop 11/18/16 at 01:46; Status DC Potassium Chloride (KCl) 40 meq NOW ONCE PO Last administered on 11/18/16 08: 24; Start 11/18/16 at 08:15; Stop 11/18/16 at 08:16; Status DC Enoxaparin Sodium (Lovenox Inj) 40 mg Q24H SQ Last administered on 11/22/16 14: 06; Start 11/18/16 at 14:00 Metoprolol Tartrate (Lopressor) 50 mg QID PO Last administered on 11/23/16 08: 06; Start 11/18/16 at 18:00 Zolpidem Tartrate (Ambien) 5 mg HS PRN PO insomnia Last administered on 23:59; Start 11/18/16 at 18:00 Potassium Chloride (KCl) 20 meq NOW ONCE PO Last administered on 11/19/16 06: 24; Start 11/19/16 at 06:15; Stop 11/19/16 at 06:16; Status DC Potassium Chloride (KCl) 20 meq ONCE ONCE PO Last administered on 11/19/16 06: 24; Start 11/19/16 at 06:30; Stop 11/19/16 at 06:31; Status DC Potassium Chloride (KCl) 20 meq ONCE ONCE PO ; Start 11/19/16 at 06:30; Stop 11/19/16 at 06:31; Status Cancel Insulin Aspart (NovoLOG SUPPLEMENTAL SCALE) 1 ACHS SQ Last administered on 11/23 11:11; Start 11/19/16 at 07:00 Dextrose (D50w (Vial) Inj) 25 ml UNSCH PRN IV HYPOGLYCEMIA-SEE COMMENTS; Start 11/19/16 at 06:30 Glucagon 1 mg 1 mg UNSCH PRN IM/SQ HYPOGLYCEMIA-SEE COMMENTS; Start 11/19/16 at 06:30 Potassium Chloride 100 ml @ 50 mls/hr Q2H PRN IV For Potassium 2.8 - 3.2 mEq/L ; Start 11/19/16 at 11:15 Potassium Chloride (KCl 20 Meq Premix Inj) 100 ml @ 50 mls/hr Q2H PRN IV For Potassium 2.8 - 3.2 mEq/L Last administered on 11/19/16 15:55; Start 11/19/16 at 11:15 Potassium Chloride 40 meq 40 meq UNSCH PRN PO/NG For Potassium 3.3 - 3.5 mEq/L Last administered on 11/19/16 18:03; Start 11/19/16 at 11:15 Potassium Chloride 100 ml @ 25 mls/hr UNSCH PRN IV For Potassium 3.3 - 3.5 mEq /L; Start 11/19/16 at 11:15 Potassium Chloride 100 ml @ 50 mls/hr Q2H PRN IV For Potassium 3.3 - 3.5 mEq/L ; Start 11/19/16 at 11:15 Magnesium Sulfate/ Sodium Chloride (Magnesium Sulfate Inj/NS Inj) 100 ml @ 50 mls/hr UNSCH PRN IV For Magnesium 0.9 - 1.1 mg/dL; Start 11/19/16 at 11:15 Magnesium Oxide 800 mg 800 mg UNSCH PRN PO For Magnesium 1.2 - 1.6 mg/dL; Start 11/19/16 at 11:15 Magnesium Sulfate/ Sodium Chloride (Magnesium Sulfate Inj/NS Inj) 100 ml @ 50 mls/hr UNSCH PRN IV For Magnesium 1.2 - 1.6 mg/dL; Start 11/19/16 at 11:15 Potassium Phosphate 2000 mg 2,000 mg Q4H PRN PO For Phosphorus < 2.5 mg/dL; Start 11/19/16 at 11:15 Sodium Phosphate/ Sodium Chloride (Sodium Phosphate Inj/NS 250 ml Inj) 250 ml @ 42 mls/hr UNSCH PRN IV For Phosphorus < 2.5 mg/dL; Start 11/19/16 at 11:15 Potassium Chloride (KCl 40 Meq/30 ml Liq) 40 meq UNSCH PRN PO/TUBE SEE LABEL COMMENTS; Start 11/19/16 at 11:15 Potassium Phosphate 2000 mg 2,000 mg UNSCH PRN PO/TUBE SEE LABEL COMMENTS; Start 11/19/16 at 11:15 Potassium Phosphate 30 mmol/ Sodium Chloride 260 ml @ 42 mls/hr UNSCH PRN IV SEE LABEL COMMENTS; Start 11/19/16 at 11:15 Vancomycin HCl/ Sodium Chloride (Vancomycin Inj/ NS 250 ml Inj) 262.5 ml @ 250 mls/hr Q12H IV Last administered on 11/21/16 10:46; Start 11/21/16 at 11:00; Stop 11/21/16 at 11:58; Status DC Miscellaneous Information SPECIFIC LAB TO BE DRAWN:[facility]... ONCE ONCE XX ; Start 11/21/16 at 22:45; Stop 11/21/16 at 22:46; Status Cancel Vancomycin HCl/ Sodium Chloride (Vancomycin Inj/ NS 500 ml Inj) 515 ml @ 250 mls/hr Q12H IV Last administered on 11/23/16 08:29; Start 11/21/16 at 21:00; Stop 11/23/16 at 11:03; Status DC Miscellaneous Information SPECIFIC LAB TO BE DRAWN:VANCOMYCIN TROUGH DATE TO... ONCE ONCE XX Last administered on 11/23/16 08:29; Start 11/23/16 at 08:45; Stop 11/23/16 at 08:46; Status DC Azithromycin/ Sodium Chloride (Zithromax Inj/ NS 250 ml Inj) 250 ml @ 250 mls/ hr Q24H IV Last administered on 11/22/16 20:30; Start 11/21/16 at 20:00 Insulin Detemir (Levemir Inj) 10 units HS SQ Last administered on 11/22/16 21: 43; Start 11/22/16 at 21:00 Methylprednisolone Sodium Succinate (SoluMEDROL INJ) 40 mg BID IV PUSH Last administered on 11/23/16 08:07; Start 11/22/16 at 21:00 Albuterol/ Ipratropium 1 ampule 1 ampule TID NEB NEB Last administered on 11/23 07:33; Start 11/22/16 at 20:00 Vancomycin HCl/ Sodium Chloride (Vancomycin Inj/ NS 500 ml Inj) 517.5 ml @ 250 mls/hr Q12H IV ; Start 11/23/16 at 21:00 Miscellaneous Information SPECIFIC LAB TO BE TERRELL... ONCE ONCE XX ; Start at 08:45; Stop 11/25/16 at 08:46 A/P Assessment and Plan A/P - acute hypoxemic respiratory failure due to right upper lobe pneumonia/ COPD exacerbation- improving slowly continue with broad spectrum IV Abx- continue IV steroid- on neb treatment- keep on oxygen to keep O2 sat > 90%- pulmonary following. -sepsis due to pneumonia; continue Abx as noted above -hypertension; continue metoprolol and norvasc- will monitor and adjust the regimen as needed. -diabetes mellitus; accu-check with SSI- continue long-acting insulin today. -DVT/GI prophylaxis with Lovenox and PPI still requiring high-flow oxygen. will keep in ICU for now for close monitoring. Trevor Acuna MD Nov 23, 2016 12:11
[2016-11-23] MEDS: ENOXAPARIN SODIUM 40 MG/0.4 ML SYRINGE SQ SCH (12:48)
[2016-11-23] MEDS: AZITHROMYCIN INJ 500 MG in SODIUM CHLOR 0.9% 250 ML INJ 250 ML IV SCH (19:55)
[2016-11-23] MEDS: INSULIN DETEMIR 100 UNITS/ML VIAL SQ SCH (21:40)
[2016-11-23] MEDS: VANCOMYCIN INJ 1,750 MG in SODIUM CHLORID 0.9% 500 ML INJ 500 ML IV SCH (21:42)
[2016-11-24] VITALS (13 sets, daily range): BP systolic 132–177; BP diastolic 58–83; PULSE 51–71; RESP 13–21; TEMP 97.7–98.3; O2SAT 90–95
[2016-11-24] MEDS: PIPERACIL-TAZO 4.5 GM PREMIX 100 ML IV SCH ×4 (00:47→17:06)
[2016-11-24 04:32] LABS: AUTOMATED NEUTROPHIL # 8.7 TH/MM3 (1.8-7.7); BASOPHIL % 0.2 % (0.0-2.0); EOSINOPHIL # 0.3 TH/MM3 (0-0.4); EOSINOPHIL % 2.1 % (0.0-4.0); HEMATOCRIT 36.1 % (39.0-51.0); LYMPHOCYTE # 2.1 TH/MM3 (1.0-4.8); MEAN CELL VOLUME 92.2 FL (80.0-100.0); MEAN CORPUSCULAR HEMOGLOBIN 31.3 PG (27.0-34.0); MEAN CORPUSCULAR HGB CONC 33.9 % (32.0-36.0); MONO % 8.7 % (0.0-8.0); PLATELET COUNT 447 TH/MM3 (150-450); RED BLOOD COUNT 3.91 MIL/MM3 (4.50-5.90); RED CELL DISTRIBUTION WIDTH 14.7 % (11.6-17.2); WHITE BLOOD COUNT 12.1 TH/MM3 (4.0-11.0)
[2016-11-24 04:39] LABS: HEMO FLAGS AUTO DIFF
[2016-11-24] MEDS: PRIMIDONE 50 MG TAB PO SCH ×2 (05:23→20:45)
[2016-11-24] MEDS: INSULIN ASPART SUPPLEMENTAL SCALE SQ SCH ×4 (07:00→20:46)
[2016-11-24] MEDS: RESP: ALBUTEROL 2.5 MG/IPRATROPIUM 0.5 MG NEB (SCH) NEB ×3 (07:42→19:37)
[2016-11-24] MEDS: BUDESONIDE-FORMOTEROL 160/4.5 MCG INHALER INH SCH ×2 (09:00→20:46)
[2016-11-24] MEDS: SODIUM CHLORIDE 0.9% FLUSH 5 ML FLUSH FLUSH SCH ×2 (09:00→20:45)
[2016-11-24 09:03] LABS: BANDS 1 % (0-6); EOSINOPHILS 2 % (0-4); METAMYELOCYTES 1 % (0-1); MYELOCYTES 3 % (0-0); NEUTROPHIL # MANUAL DIFF 7.4 TH/MM3 (1.8-7.7); POLYS (SEG NEUTROPHILS) 55 % (16-70); PROMYELOCYTES 1 % (0-0); WBC DIFF SAMPLE 100
[2016-11-24 09:04] LABS: PLATELET ESTIMATE SMEAR NORMAL (NORMAL); PLATELET MORPHOLOGY NORMAL (NORMAL); SCAN/DIFF FINAL DIFF MANUAL
[2016-11-24] MEDS: guaiFENesin E.R. 600 MG TAB PO SCH ×2 (09:05→20:45)
[2016-11-24] MEDS: hydrALAZINE HCL 25 MG TAB PO SCH ×2 (09:05→20:45)
[2016-11-24] MEDS: VANCOMYCIN INJ 1,750 MG in SODIUM CHLORID 0.9% 500 ML INJ 500 ML IV SCH ×2 (09:05→20:45)
[2016-11-24] MEDS: MONTELUKAST SODIUM 10 MG TAB PO SCH (09:05)
[2016-11-24] MEDS: methylPREDNISolone SOD SUCC 40 MG/1 ML VIAL IV PUSH SCH (09:05)
[2016-11-24] MEDS: PANTOPRAZOLE SOD 20 MG DELAYED RELEASE TAB PO SCH ×2 (09:05→20:45)
[2016-11-24] MEDS: GABAPENTIN 100 MG CAP PO SCH ×2 (09:07→20:45)
--- NOTE | 2016-11-24 09:57 | HHI.PR ---
Subjective Remarks slowly improving. sob is better. still with some pleuritic chest pain. no other complaints. d/w the RN and no acute issues over night. Objective Vitals Vital Signs Date Time Temp Pulse Resp B/P Pulse Ox O2 Delivery O2 Flow Rate FiO2 11/24/16 07:46 91 High Flow Nasal Cannula 20.00 60 11/24/16 07:00 Nasal Cannula 11/24/16 06:00 59 11/24/16 04:00 71 11/24/16 04:00 98.3 71 18 152/72 91 11/24/16 02:00 51 11/24/16 00:00 54 11/24/16 00:00 97.9 54 16 134/61 90 11/23/16 22:00 69 11/23/16 20:46 92 High Flow Nasal Cannula 20.00 30 11/23/16 20:00 98.0 52 20 159/74 91 11/23/16 20:00 52 11/23/16 19:00 Nasal Cannula 11/23/16 18:00 67 11/23/16 16:00 57 11/23/16 16:00 97.9 57 19 156/72 93 11/23/16 14:15 93 High Flow Nasal Cannula 20.00 60 11/23/16 14:00 63 11/23/16 12:00 97.4 65 19 141/64 92 11/23/16 12:00 62 11/23/16 10:00 60 I/O 11/23/16 11/23/16 11/23/16 11/24/16 11/24/16 11/24/16 07:00 15:00 23:00 07:00 15:00 23:00 Intake Total 1284 ml 1547 ml 1198 ml 1368 ml Output Total 2100 ml 1900 ml 2300 ml 1820 ml Balance -816 ml -353 ml -1102 ml -452 ml Intake Oral 240 ml 650 ml 720 ml 720 ml IV Total 1044 ml 897 ml 478 ml 648 ml Output Urine Total 2100 ml 1900 ml 2300 ml 1820 ml # Bowel Movements 0 1 0 0 Result Diagram: 11/24/16 0344 11/24/16 0344 Imaging Last Impressions Chest X-Ray 11/21/16 0600 Signed Impressions: Service Date/Time: Monday, November 21, 2016 03:35 - CONCLUSION: 1. Persistent right upper lobe airspace infiltrate, unchanged. 2. Developing bibasilar effusions, left greater than right. José Lusi Dickinson MD CT Angiography 11/16/16 0000 Signed Impressions: Service Date/Time: Wednesday, November 16, 2016 20:34 - CONCLUSION: No evidence of pulmonary embolism. Consolidating airspace disease in the right upper lobe. Mild subsegmental air space disease in both lower lobes. Sacha Walls MD Objective Remarks GENERAL: with some sob and cough CARDIOVASCULAR: Regular rate and regular rhythm without murmurs, gallops, or rubs. RESPIRATORY: diminished air entry on right base GASTROINTESTINAL: Abdomen soft, non-tender, nondistended. Normal, active bowel sounds MUSCULOSKELETAL: Extremities without clubbing, cyanosis, or edema. NEURO: Alert & Oriented x4 to person, place, time, situation. Moves all ext x4 Medications and IVs Current Medications Ceftriaxone Sodium 1000 mg/ Sodium Chloride 25 ml @ 50 mls/hr ONCE ONCE IV Last administered on 11/16/16 20:10; Start 11/16/16 at 20:00; Stop 11/16/16 at 20: 29; Status DC Azithromycin 500 mg/Sodium Chloride 250 ml @ 250 mls/hr ONCE ONCE IV Last administered on 11/16/16 20:09; Start 11/16/16 at 20:00; Stop 11/16/16 at 20:59; Status DC Sodium Chloride (NS 1000 ml Inj) 1,000 ml @ 1,000 mls/hr Q1H IV Last administered on 11/16/16 20:27; Start 11/16/16 at 20:20; Stop 11/16/16 at 21:19; Status DC Potassium Chloride 40 meq 40 meq ONCE ONCE PO Last administered on 11/16/16 20 :27; Start 11/16/16 at 20:30; Stop 11/16/16 at 20:31; Status DC Sodium Chloride (NS 1000 ml Inj) 1,000 ml @ 999 mls/hr BOLUS ONCE IV Last administered on 11/16/16 21:04; Start 11/16/16 at 20:30; Stop 11/16/16 at 21:30; Status DC Iohexol 73 ml 73 ml STK-MED ONCE IV Last administered on 11/16/16 20:36; Start 11/16/16 at 20:36; Stop 11/16/16 at 20:37; Status DC Ceftriaxone Sodium 1000 mg/ Sodium Chloride 100 ml @ 200 mls/hr Q24H IV ; Start 11/17/16 at 20:00; Stop 11/17/16 at 20:00; Status DC Azithromycin/ Sodium Chloride (Zithromax Inj/ NS 250 ml Inj) 250 ml @ 250 mls/ hr Q24H IV Last administered on 11/20/16 20:57; Start 11/17/16 at 21:00; Stop at 12:00; Status DC Guaifenesin (Mucinex Er) 600 mg BID PO Last administered on 11/24/16 09:05; Start 11/17/16 at 09:00 Budesonide/ Formoterol Fumarate (Symbicort 160-4.5 Inh) 2 puff Q12HR INH Last administered on 11/23/16 21:33; Start 11/16/16 at 21:45 Albuterol/ Ipratropium (Duoneb Neb) 1 ampule Q4HR WHILE AWAKE NEB NEB Last administered on 11/17/16 20:12; Start 11/17/16 at 08:00; Stop 11/17/16 at 23:16; Status DC Albuterol/ Ipratropium (Duoneb Neb) 1 ampule Q2HR NEB PRN NEB SOB/WHEEZING Last administered on 11/22/16 07:36; Start 11/16/16 at 21:45 Dextrose (D50w (Vial) Inj) 25 ml UNSCH PRN IV PUSH HYPOGLYCEMIA-SEE COMMENTS; Start 11/16/16 at 21:45; Stop 11/19/16 at 06:32; Status DC Glucagon (Glucagon Inj) 1 mg UNSCH PRN OTHER HYPOGLYCEMIA-SEE COMMENTS; Start 11/16/16 at 21:45; Stop 11/19/16 at 06:32; Status DC Insulin Aspart 1 1 ACHS SLIDING SCALE SQ Last administered on 11/19/16 06:20; Start 11/17/16 at 07:00; Stop 11/19/16 at 06:30; Status DC Sodium Chloride (NS 1000 ml Inj) 1,000 ml @ 100 mls/hr Q10H IV Last administered on 11/23/16 03:31; Start 11/16/16 at 21:31; Status Hold IV Flush (NS Flush) 2 ml UNSCH PRN FLUSH FLUSH AFTER USING IV ACCESS; Start 11/16/16 at 21:45 IV Flush (NS Flush) 2 ml BID FLUSH Last administered on 11/23/16 19:56; Start 11/17/16 at 09:00 Ondansetron HCl (Zofran Inj) 4 mg Q6H PRN IVP NAUSEA OR VOMITING; Start at 21:45 Bisacodyl (Dulcolax Supp) 10 mg DAILY PRN AR CONSTIPATION; Start 11/16/16 at 21: 45 Acetaminophen (Tylenol) 650 mg Q6H PRN PO FEVER/PAIN SCALE 1 TO 2 Last administered on 11/17/16 19:42; Start 11/16/16 at 21:45 Acetaminophen/ Hydrocodone Bitart ([place] 5-325 Mg) 1 tab Q4H PRN PO PAIN SCALE 3 TO 5; Start 11/16/16 at 21:45 Morphine Sulfate (Morphine Inj) 2 mg Q3H PRN IV Pain 6-10; Start 11/16/16 at 21: 45 Amlodipine Besylate (Norvasc) 10 mg DAILY PO Last administered on 11/24/16 09: 05; Start 11/17/16 at 09:00 Gabapentin (Neurontin) 100 mg BID PO Last administered on 11/24/16 09:07; Start 11/17/16 at 09:00 Hydralazine HCl (Apresoline) 25 mg BID PO Last administered on 11/24/16 09:05 ; Start 11/17/16 at 09:00 Metoprolol Tartrate (Lopressor) 100 mg BID PO Last administered on 11/18/16 08: 24; Start 11/17/16 at 09:00; Stop 11/18/16 at 13:19; Status DC Montelukast Sodium (Singulair) 10 mg DAILY PO Last administered on 11/24/16 09 :05; Start 11/17/16 at 09:00 Pantoprazole Sodium (Protonix) 20 mg BID PO Last administered on 11/24/16 09: 05; Start 11/17/16 at 09:00 Primidone (Mysoline) 50 mg HS PO Last administered on 11/23/16 21:40; Start at 21:00 Primidone (Mysoline) 100 mg DAILY@0600 PO Last administered on 11/24/16 05:23 ; Start 11/17/16 at 06:00 Diphenhydramine HCl 25 mg 25 mg ONCE ONCE PO Last administered on 11/17/16 02: 35; Start 11/17/16 at 02:30; Stop 11/17/16 at 02:33; Status DC Potassium Chloride 100 ml @ 50 mls/hr Q2H IV Last administered on 11/17/16 11: 24; Start 11/17/16 at 08:00; Stop 11/17/16 at 11:59; Status DC Magnesium Sulfate/ Dextrose (Magnesium Sulfate 1 Gm Premix) 100 ml @ 100 mls/ hr ONCE ONCE IV Last administered on 11/17/16 14:01; Start 11/17/16 at 09:15; Stop 11/17/16 at 10:21; Status DC Benzonatate 200 mg 200 mg Q8H PRN PO COUGH Last administered on 11/22/16 21:42 ; Start 11/17/16 at 09:15 Pharmacy Profile Note 0 ml @ 0 mls/hr UNSCH OTHER ; Start 11/17/16 at 15:45 Piperacillin Sod/ Tazobactam Sod (Zosyn 4.5 Gm Premix) 100 ml @ 200 mls/hr Q6H IV Last administered on 11/24/16 05:23; Start 11/17/16 at 17:00 Tuberculin PPD (Ppd Inj) 5 units ONCE ONCE ID Last administered on 11/17/16 17 :46; Start 11/17/16 at 17:00; Stop 11/17/16 at 17:01; Status DC Miscellaneous Information 1 1 Q24H OTHER Last administered on 11/20/16 17:00; Start 11/18/16 at 17:00; Stop 11/20/16 at 17:01; Status DC Vancomycin HCl/ Sodium Chloride (Vancomycin Inj/ NS 500 ml Inj) 517.5 ml @ 250 mls/hr Q24H IV Last administered on 11/20/16 18:19; Start 11/17/16 at 18:00; Stop 11/20/16 at 19:12; Status DC Miscellaneous Information SPECIFIC LAB TO BE TERRELL... ONCE ONCE XX Last administered on 11/20/16 18:00; Start 11/20/16 at 17:45; Stop 11/20/16 at 17:46; Status DC Potassium Chloride (KCl) 20 meq ONCE ONCE PO Last administered on 11/17/16 21: 10; Start 11/17/16 at 21:00; Stop 11/17/16 at 21:01; Status DC Methylprednisolone Sodium Succinate (SoluMEDROL INJ) 125 mg ONCE ONCE IV PUSH Last administered on 11/17/16 21:10; Start 11/17/16 at 21:00; Stop 11/17/16 at 21: 01; Status DC Methylprednisolone Sodium Succinate 40 mg 40 mg Q6H IV PUSH Last administered on 11/22/16 14:06; Start 11/18/16 at 03:00; Stop 11/22/16 at 17:13; Status DC Calcium Gluconate/ Sodium Chloride (Calcium Gluconate Inj/NS Inj) 110 ml @ 110 mls/hr ONCE ONCE IV Last administered on 11/17/16 22:54; Start 11/17/16 at 22: 00; Stop 11/17/16 at 22:59; Status DC Albuterol/ Ipratropium (Duoneb Neb) 1 ampule Q4HR NEB NEB Last administered on 11/21/16 23:45; Start 11/18/16 at 00:00; Stop 11/22/16 at 00:00; Status DC Furosemide (Lasix Inj) 20 mg ONCE ONCE IV PUSH Last administered on 11/18/16 01:04; Start 11/18/16 at 00:45; Stop 11/18/16 at 00:46; Status DC Guaifenesin/ Dextromethorphan (Robitussin Dm 200-20 Mg/10 ml Liq) 10 ml Q4H PRN PO cough; Start 11/18/16 at 00:45 Temazepam (Restoril) 7.5 mg ONCE ONCE PO Last administered on 11/18/16 01:51; Start 11/18/16 at 01:45; Stop 11/18/16 at 01:46; Status DC Potassium Chloride (KCl) 40 meq NOW ONCE PO Last administered on 11/18/16 08: 24; Start 11/18/16 at 08:15; Stop 11/18/16 at 08:16; Status DC Enoxaparin Sodium (Lovenox Inj) 40 mg Q24H SQ Last administered on 11/23/16 12 :48; Start 11/18/16 at 14:00 Metoprolol Tartrate (Lopressor) 50 mg QID PO Last administered on 11/23/16 17: 56; Start 11/18/16 at 18:00 Zolpidem Tartrate (Ambien) 5 mg HS PRN PO insomnia Last administered on 23:59; Start 11/18/16 at 18:00 Potassium Chloride (KCl) 20 meq NOW ONCE PO Last administered on 11/19/16 06: 24; Start 11/19/16 at 06:15; Stop 11/19/16 at 06:16; Status DC Potassium Chloride (KCl) 20 meq ONCE ONCE PO Last administered on 11/19/16 06: 24; Start 11/19/16 at 06:30; Stop 11/19/16 at 06:31; Status DC Potassium Chloride (KCl) 20 meq ONCE ONCE PO ; Start 11/19/16 at 06:30; Stop 11/19/16 at 06:31; Status Cancel Insulin Aspart (NovoLOG SUPPLEMENTAL SCALE) 1 ACHS SQ Last administered on 11/23 21:40; Start 11/19/16 at 07:00 Dextrose (D50w (Vial) Inj) 25 ml UNSCH PRN IV HYPOGLYCEMIA-SEE COMMENTS; Start 11/19/16 at 06:30 Glucagon 1 mg 1 mg UNSCH PRN IM/SQ HYPOGLYCEMIA-SEE COMMENTS; Start 11/19/16 at 06:30 Potassium Chloride 100 ml @ 50 mls/hr Q2H PRN IV For Potassium 2.8 - 3.2 mEq/L ; Start 11/19/16 at 11:15 Potassium Chloride (KCl 20 Meq Premix Inj) 100 ml @ 50 mls/hr Q2H PRN IV For Potassium 2.8 - 3.2 mEq/L Last administered on 11/19/16 15:55; Start 11/19/16 at 11:15 Potassium Chloride 40 meq 40 meq UNSCH PRN PO/NG For Potassium 3.3 - 3.5 mEq/L Last administered on 11/19/16 18:03; Start 11/19/16 at 11:15 Potassium Chloride 100 ml @ 25 mls/hr UNSCH PRN IV For Potassium 3.3 - 3.5 mEq /L; Start 11/19/16 at 11:15 Potassium Chloride 100 ml @ 50 mls/hr Q2H PRN IV For Potassium 3.3 - 3.5 mEq/L ; Start 11/19/16 at 11:15 Magnesium Sulfate/ Sodium Chloride (Magnesium Sulfate Inj/NS Inj) 100 ml @ 50 mls/hr UNSCH PRN IV For Magnesium 0.9 - 1.1 mg/dL; Start 11/19/16 at 11:15 Magnesium Oxide 800 mg 800 mg UNSCH PRN PO For Magnesium 1.2 - 1.6 mg/dL; Start 11/19/16 at 11:15 Magnesium Sulfate/ Sodium Chloride (Magnesium Sulfate Inj/NS Inj) 100 ml @ 50 mls/hr UNSCH PRN IV For Magnesium 1.2 - 1.6 mg/dL; Start 11/19/16 at 11:15 Potassium Phosphate 2000 mg 2,000 mg Q4H PRN PO For Phosphorus < 2.5 mg/dL; Start 11/19/16 at 11:15 Sodium Phosphate/ Sodium Chloride (Sodium Phosphate Inj/NS 250 ml Inj) 250 ml @ 42 mls/hr UNSCH PRN IV For Phosphorus < 2.5 mg/dL; Start 11/19/16 at 11:15 Potassium Chloride (KCl 40 Meq/30 ml Liq) 40 meq UNSCH PRN PO/TUBE SEE LABEL COMMENTS; Start 11/19/16 at 11:15 Potassium Phosphate 2000 mg 2,000 mg UNSCH PRN PO/TUBE SEE LABEL COMMENTS; Start 11/19/16 at 11:15 Potassium Phosphate 30 mmol/ Sodium Chloride 260 ml @ 42 mls/hr UNSCH PRN IV SEE LABEL COMMENTS; Start 11/19/16 at 11:15 Vancomycin HCl/ Sodium Chloride (Vancomycin Inj/ NS 250 ml Inj) 262.5 ml @ 250 mls/hr Q12H IV Last administered on 11/21/16t 10:46; Start 11/21/16 at 11:00; Stop 11/21/16 at 11:58; Status DC Miscellaneous Information SPECIFIC LAB TO BE DRAWN:[facility]... ONCE ONCE XX ; Start 11/21/16 at 22:45; Stop 11/21/16 at 22:46; Status Cancel Vancomycin HCl/ Sodium Chloride (Vancomycin Inj/ NS 500 ml Inj) 515 ml @ 250 mls/hr Q12H IV Last administered on 11/23/16 08:29; Start 11/21/16 at 21:00; Stop 11/23/16 at 11:03; Status DC Miscellaneous Information SPECIFIC LAB TO BE DRAWN:VANCOMYCIN TROUGH DATE TO... ONCE ONCE XX Last administered on 11/23/16 08:29; Start 11/23/16 at 08:45; Stop 11/23/16 at 08:46; Status DC Azithromycin/ Sodium Chloride (Zithromax Inj/ NS 250 ml Inj) 250 ml @ 250 mls/ hr Q24H IV Last administered on 11/23/16 19:55; Start 11/21/16 at 20:00 Insulin Detemir (Levemir Inj) 10 units HS SQ Last administered on 11/23/16 21: 40; Start 11/22/16 at 21:00 Methylprednisolone Sodium Succinate (SoluMEDROL INJ) 40 mg BID IV PUSH Last administered on 11/23/16 08:07; Start 11/22/16 at 21:00; Stop 11/23/16 at 15:00 ; Status DC Albuterol/ Ipratropium 1 ampule 1 ampule TID NEB NEB Last administered on 11/24 07:42; Start 11/22/16 at 20:00 Vancomycin HCl/ Sodium Chloride (Vancomycin Inj/ NS 500 ml Inj) 517.5 ml @ 250 mls/hr Q12H IV Last administered on 11/24/16 09:05; Start 11/23/16 at 21:00 Miscellaneous Information SPECIFIC LAB TO BE TERRELL... ONCE ONCE XX ; Start at 08:45; Stop 11/25/16 at 08:46 Methylprednisolone Sodium Succinate (SoluMEDROL INJ) 40 mg DAILY IV PUSH Last administered on 11/24/16 09:05; Start 11/24/16 at 09:00 A/P Assessment and Plan A/P - acute hypoxemic respiratory failure due to right upper lobe pneumonia/ COPD exacerbation- improving slowly continue with broad spectrum IV Abx- continue IV steroid- on neb treatment- keep on oxygen to keep O2 sat > 90%- pulmonary following. -sepsis due to pneumonia; continue Abx as noted above -hypertension; continue metoprolol and norvasc- will monitor and adjust the regimen as needed. -diabetes mellitus; accu-check with SSI- increase long-acting insulin . -DVT/GI prophylaxis with Lovenox and PPI improving but still requiring high-flow oxygen. will keep in ICU for now for close monitoring. Trevor Acuna MD Nov 24, 2016 09:57
[2016-11-24] MEDS: METOPROLOL TARTRATE 50 MG TAB PO SCH ×4 (11:25→20:45)
[2016-11-24] MEDS: ENOXAPARIN SODIUM 40 MG/0.4 ML SYRINGE SQ SCH (14:18)
[2016-11-24] MEDS: AZITHROMYCIN INJ 500 MG in SODIUM CHLOR 0.9% 250 ML INJ 250 ML IV SCH (20:45)
[2016-11-24] MEDS: INSULIN DETEMIR 100 UNITS/ML VIAL SQ SCH (20:46)
[2016-11-25] VITALS (14 sets, daily range): BP systolic 124–170; BP diastolic 59–75; PULSE 48–73; RESP 15–24; TEMP 97.7–97.9; O2SAT 85–95
[2016-11-25] MEDS: PIPERACIL-TAZO 4.5 GM PREMIX 100 ML IV SCH ×5 (00:02→22:23)
[2016-11-25] MEDS: PRIMIDONE 50 MG TAB PO SCH ×2 (06:00→20:31)
[2016-11-25] MEDS: INSULIN ASPART SUPPLEMENTAL SCALE SQ SCH ×4 (06:53→20:31)
[2016-11-25] MEDS: RESP: ALBUTEROL 2.5 MG/IPRATROPIUM 0.5 MG NEB (SCH) NEB ×3 (07:19→20:15)
[2016-11-25] MEDS: guaiFENesin E.R. 600 MG TAB PO SCH ×2 (08:09→20:31)
[2016-11-25] MEDS: PANTOPRAZOLE SOD 20 MG DELAYED RELEASE TAB PO SCH ×2 (08:09→20:31)
[2016-11-25] MEDS: VANCOMYCIN INJ 1,750 MG in SODIUM CHLORID 0.9% 500 ML INJ 500 ML IV SCH ×2 (08:09→21:40)
[2016-11-25] MEDS: methylPREDNISolone SOD SUCC 40 MG/1 ML VIAL IV PUSH SCH (08:09)
[2016-11-25] MEDS: hydrALAZINE HCL 25 MG TAB PO SCH ×2 (08:09→20:31)
[2016-11-25] MEDS: GABAPENTIN 100 MG CAP PO SCH ×2 (08:09→20:31)
[2016-11-25] MEDS: MONTELUKAST SODIUM 10 MG TAB PO SCH (08:09)
[2016-11-25] MEDS ORDERED: PHARMACY ORDERED LAB XX ONE ×2 (08:45→20:45)
[2016-11-25] MEDS: METOPROLOL TARTRATE 50 MG TAB PO SCH ×4 (09:00→20:31)
--- NOTE | 2016-11-25 09:00 | RADRPT ---
EXAM DATE/TIME: 11/25/2016 08:23 [facility] COMPARISON: CHEST SINGLE AP, November 21, 2016, 3:35. INDICATIONS : Shortness of breath. MEDICAL HISTORY : Hypertension. Diabetes mellitus type II. Gastroesophageal reflux disease. SURGICAL HISTORY : None. ENCOUNTER: Subsequent ACUITY: 1 week PAIN SCORE: 0/10 LOCATION: Bilateral chest FINDINGS: There continues to be increased density in the right upper lung. The left lung is clear. The heart si ze is normal. No effusion is seen. CONCLUSION: Persistent right upper lobe consolidation or atelectasis. There does appear to be some improvement on the current exam. Ralph Smith MD on November 25, 2016 at 8:57 Board Certified Radiologist. This report was verified electronically.
--- NOTE | 2016-11-25 12:22 | HHI.PR ---
Subjective Remarks now on oxygen via [place]. looks much more comfortable. has some chest pain which he relates to the cough. no fever. d/w the RN. Objective Vitals Vital Signs Date Time Temp Pulse Resp B/P Pulse Ox O2 Delivery O2 Flow Rate FiO2 11/25/16 12:00 65 11/25/16 10:00 73 11/25/16 08:00 62 11/25/16 08:00 Nasal Cannula 5.00 11/25/16 08:00 97.7 62 24 170/72 91 11/25/16 07:39 93 High Flow Nasal Cannula 15.00 45 11/25/16 07:21 95 Aerosol Mask 20.00 50 11/25/16 06:00 48 11/25/16 04:00 97.9 54 15 135/64 91 11/25/16 04:00 54 11/25/16 02:00 56 11/25/16 00:00 52 11/25/16 00:00 97.9 52 15 136/65 85 11/24/16 22:00 70 11/24/16 20:00 97.8 62 13 139/72 93 11/24/16 20:00 62 11/24/16 19:40 95 High Flow Nasal Cannula 20.00 45 11/24/16 19:00 95 Nasal Cannula 8.00 45 11/24/16 18:00 58 11/24/16 16:00 67 11/24/16 16:00 97.7 67 21 147/58 93 I/O 11/24/16 11/24/16 11/24/16 11/25/16 11/25/16 11/25/16 07:00 15:00 23:00 07:00 15:00 23:00 Intake Total 1368 ml 1452 ml 765 ml 1574 ml Output Total 1820 ml 1050 ml 1200 ml 1850 ml Balance -452 ml 402 ml -435 ml -276 ml Intake Oral 720 ml 700 ml 650 ml 600 ml IV Total 648 ml 752 ml 115 ml 974 ml Output Urine Total 1820 ml 1050 ml 1200 ml 1850 ml # Bowel Movements 0 1 0 0 Result Diagram: 11/24/1634311/24/16 0344 Imaging Last Impressions Chest X-Ray 11/21/16 0600 Signed Impressions: Service Date/Time: Monday, November 21, 2016 03:35 - CONCLUSION: 1. Persistent right upper lobe airspace infiltrate, unchanged. 2. Developing bibasilar effusions, left greater than right. José Luis Dickinson MD CT Angiography 11/16/16 0000 Signed Impressions: Service Date/Time: Wednesday, November 16, 2016 20:34 - CONCLUSION: No evidence of pulmonary embolism. Consolidating airspace disease in the right upper lobe. Mild subsegmental air space disease in both lower lobes. Sacha Walls MD Objective Remarks GENERAL: with some sob and cough CARDIOVASCULAR: Regular rate and regular rhythm without murmurs, gallops, or rubs. RESPIRATORY: diminished air entry on right base GASTROINTESTINAL: Abdomen soft, non-tender, nondistended. Normal, active bowel sounds MUSCULOSKELETAL: Extremities without clubbing, cyanosis, or edema. NEURO: Alert & Oriented x4 to person, place, time, situation. Moves all ext x4 Medications and IVs Current Medications Ceftriaxone Sodium 1000 mg/ Sodium Chloride 25 ml @ 50 mls/hr ONCE ONCE IV Last administered on 11/16/16 20:10; Start 11/16/16 at 20:00; Stop 11/16/16 at 20: 29; Status DC Azithromycin 500 mg/Sodium Chloride 250 ml @ 250 mls/hr ONCE ONCE IV Last administered on 11/16/16 20:09; Start 11/16/16 at 20:00; Stop 11/16/16 at 20:59; Status DC Sodium Chloride (NS 1000 ml Inj) 1,000 ml @ 1,000 mls/hr Q1H IV Last administered on 11/16/16 20:27; Start 11/16/16 at 20:20; Stop 11/16/16 at 21:19; Status DC Potassium Chloride 40 meq 40 meq ONCE ONCE PO Last administered on 11/16/16 20 :27; Start 11/16/16 at 20:30; Stop 11/16/16 at 20:31; Status DC Sodium Chloride (NS 1000 ml Inj) 1,000 ml @ 999 mls/hr BOLUS ONCE IV Last administered on 11/16/16 21:04; Start 11/16/16 at 20:30; Stop 11/16/16 at 21:30; Status DC Iohexol 73 ml 73 ml STK-MED ONCE IV Last administered on 11/16/16 20:36; Start 11/16/16 at 20:36; Stop 11/16/16 at 20:37; Status DC Ceftriaxone Sodium 1000 mg/ Sodium Chloride 100 ml @ 200 mls/hr Q24H IV ; Start 11/17/16 at 20:00; Stop 11/17/16 at 20:00; Status DC Azithromycin/ Sodium Chloride (Zithromax Inj/ NS 250 ml Inj) 250 ml @ 250 mls/ hr Q24H IV Last administered on 11/20/16 20:57; Start 11/17/16 at 21:00; Stop at 12:00; Status DC Guaifenesin (Mucinex Er) 600 mg BID PO Last administered on 11/25/16 08:09; Start 11/17/16 at 09:00 Budesonide/ Formoterol Fumarate (Symbicort 160-4.5 Inh) 2 puff Q12HR INH Last administered on 11/24/16 20:46; Start 11/16/16 at 21:45 Albuterol/ Ipratropium (Duoneb Neb) 1 ampule Q4HR WHILE AWAKE NEB NEB Last administered on 11/17/16 20:12; Start 11/17/16 at 08:00; Stop 11/17/16 at 23:16; Status DC Albuterol/ Ipratropium (Duoneb Neb) 1 ampule Q2HR NEB PRN NEB SOB/WHEEZING Last administered on 11/22/16 07:36; Start 11/16/16 at 21:45 Dextrose (D50w (Vial) Inj) 25 ml UNSCH PRN IV PUSH HYPOGLYCEMIA-SEE COMMENTS; Start 11/16/16 at 21:45; Stop 11/19/16 at 06:32; Status DC Glucagon (Glucagon Inj) 1 mg UNSCH PRN OTHER HYPOGLYCEMIA-SEE COMMENTS; Start 11/16/16 at 21:45; Stop 11/19/16 at 06:32; Status DC Insulin Aspart 1 1 ACHS SLIDING SCALE SQ Last administered on 11/19/16 06:20; Start 11/17/16 at 07:00; Stop 11/19/16 at 06:30; Status DC Sodium Chloride (NS 1000 ml Inj) 1,000 ml @ 100 mls/hr Q10H IV Last administered on 11/23/16 03:31; Start 11/16/16 at 21:31; Status Hold IV Flush (NS Flush) 2 ml UNSCH PRN FLUSH FLUSH AFTER USING IV ACCESS; Start 11/16/16 at 21:45 IV Flush (NS Flush) 2 ml BID FLUSH Last administered on 11/24/16 20:45; Start 11/17/16 at 09:00 Ondansetron HCl (Zofran Inj) 4 mg Q6H PRN IVP NAUSEA OR VOMITING; Start at 21:45 Bisacodyl (Dulcolax Supp) 10 mg DAILY PRN SD CONSTIPATION; Start 11/16/16 at 21: 45 Acetaminophen (Tylenol) 650 mg Q6H PRN PO FEVER/PAIN SCALE 1 TO 2 Last administered on 11/17/16 19:42; Start 11/16/16 at 21:45 Acetaminophen/ Hydrocodone Bitart (Jefferson 5-325 Mg) 1 tab Q4H PRN PO PAIN SCALE 3 TO 5; Start 11/16/16 at 21:45 Morphine Sulfate (Morphine Inj) 2 mg Q3H PRN IV Pain 6-10; Start 11/16/16 at 21: 45 Amlodipine Besylate (Norvasc) 10 mg DAILY PO Last administered on 11/25/16 08: 09; Start 11/17/16 at 09:00 Gabapentin (Neurontin) 100 mg BID PO Last administered on 11/25/16 08:09; Start 11/17/16 at 09:00 Hydralazine HCl (Apresoline) 25 mg BID PO Last administered on 11/25/16 08:09 ; Start 11/17/16 at 09:00 Metoprolol Tartrate (Lopressor) 100 mg BID PO Last administered on 11/18/16 08: 24; Start 11/17/16 at 09:00; Stop 11/18/16 at 13:19; Status DC Montelukast Sodium (Singulair) 10 mg DAILY PO Last administered on 11/25/16 08 :09; Start 11/17/16 at 09:00 Pantoprazole Sodium (Protonix) 20 mg BID PO Last administered on 11/25/16 08: 09; Start 11/17/16 at 09:00 Primidone (Mysoline) 50 mg HS PO Last administered on 11/24/16 20:45; Start at 21:00 Primidone (Mysoline) 100 mg DAILY@0600 PO Last administered on 11/25/16 06:00 ; Start 11/17/16 at 06:00 Diphenhydramine HCl 25 mg 25 mg ONCE ONCE PO Last administered on 11/17/16 02: 35; Start 11/17/16 at 02:30; Stop 11/17/16 at 02:33; Status DC Potassium Chloride 100 ml @ 50 mls/hr Q2H IV Last administered on 11/17/16 11: 24; Start 11/17/16 at 08:00; Stop 11/17/16 at 11:59; Status DC Magnesium Sulfate/ Dextrose (Magnesium Sulfate 1 Gm Premix) 100 ml @ 100 mls/ hr ONCE ONCE IV Last administered on 11/17/16 14:01; Start 11/17/16 at 09:15; Stop 11/17/16 at 10:21; Status DC Benzonatate 200 mg 200 mg Q8H PRN PO COUGH Last administered on 11/22/16 21:42 ; Start 11/17/16 at 09:15 Pharmacy Profile Note 0 ml @ 0 mls/hr UNSCH OTHER ; Start 11/17/16 at 15:45 Piperacillin Sod/ Tazobactam Sod (Zosyn 4.5 Gm Premix) 100 ml @ 200 mls/hr Q6H IV Last administered on 11/25/16 11:23; Start 11/17/16 at 17:00 Tuberculin PPD (Ppd Inj) 5 units ONCE ONCE ID Last administered on 11/17/16 17 :46; Start 11/17/16 at 17:00; Stop 11/17/16 at 17:01; Status DC Miscellaneous Information 1 1 Q24H OTHER Last administered on 11/20/16 17:00; Start 11/18/16 at 17:00; Stop 11/20/16 at 17:01; Status DC Vancomycin HCl/ Sodium Chloride (Vancomycin Inj/ NS 500 ml Inj) 517.5 ml @ 250 mls/hr Q24H IV Last administered on 11/20/16 18:19; Start 11/17/16 at 18:00; Stop 11/20/16 at 19:12; Status DC Miscellaneous Information SPECIFIC LAB TO BE TERRELL... ONCE ONCE XX Last administered on 11/20/16 18:00; Start 11/20/16 at 17:45; Stop 11/20/16 at 17:46; Status DC Potassium Chloride (KCl) 20 meq ONCE ONCE PO Last administered on 11/17/16 21: 10; Start 11/17/16 at 21:00; Stop 11/17/16 at 21:01; Status DC Methylprednisolone Sodium Succinate (SoluMEDROL INJ) 125 mg ONCE ONCE IV PUSH Last administered on 11/17/16 21:10; Start 11/17/16 at 21:00; Stop 11/17/16 at 21: 01; Status DC Methylprednisolone Sodium Succinate 40 mg 40 mg Q6H IV PUSH Last administered on 11/22/16 14:06; Start 11/18/16 at 03:00; Stop 11/22/16 at 17:13; Status DC Calcium Gluconate/ Sodium Chloride (Calcium Gluconate Inj/NS Inj) 110 ml @ 110 mls/hr ONCE ONCE IV Last administered on 11/17/16 22:54; Start 11/17/16 at 22: 00; Stop 11/17/16 at 22:59; Status DC Albuterol/ Ipratropium (Duoneb Neb) 1 ampule Q4HR NEB NEB Last administered on 11/21/16 23:45; Start 11/18/16 at 00:00; Stop 11/22/16 at 00:00; Status DC Furosemide (Lasix Inj) 20 mg ONCE ONCE IV PUSH Last administered on 11/18/16 01:04; Start 11/18/16 at 00:45; Stop 11/18/16 at 00:46; Status DC Guaifenesin/ Dextromethorphan (Robitussin Dm 200-20 Mg/10 ml Liq) 10 ml Q4H PRN PO cough; Start 11/18/16 at 00:45 Temazepam (Restoril) 7.5 mg ONCE ONCE PO Last administered on 11/18/16 01:51; Start 11/18/16 at 01:45; Stop 11/18/16 at 01:46; Status DC Potassium Chloride (KCl) 40 meq NOW ONCE PO Last administered on 11/18/16 08: 24; Start 11/18/16 at 08:15; Stop 11/18/16 at 08:16; Status DC Enoxaparin Sodium (Lovenox Inj) 40 mg Q24H SQ Last administered on 11/24/16 14 :18; Start 11/18/16 at 14:00 Metoprolol Tartrate (Lopressor) 50 mg QID PO Last administered on 11/25/16 11: 23; Start 11/18/16 at 18:00 Zolpidem Tartrate (Ambien) 5 mg HS PRN PO insomnia Last administered on 23:59; Start 11/18/16 at 18:00 Potassium Chloride (KCl) 20 meq NOW ONCE PO Last administered on 11/19/16 06: 24; Start 11/19/16 at 06:15; Stop 11/19/16 at 06:16; Status DC Potassium Chloride (KCl) 20 meq ONCE ONCE PO Last administered on 11/19/16 06: 24; Start 11/19/16 at 06:30; Stop 11/19/16 at 06:31; Status DC Potassium Chloride (KCl) 20 meq ONCE ONCE PO ; Start 11/19/16 at 06:30; Stop 11/19/16 at 06:31; Status Cancel Insulin Aspart (NovoLOG SUPPLEMENTAL SCALE) 1 ACHS SQ Last administered on 11/25 11:00; Start 11/19/16 at 07:00 Dextrose (D50w (Vial) Inj) 25 ml UNSCH PRN IV HYPOGLYCEMIA-SEE COMMENTS; Start 11/19/16 at 06:30 Glucagon 1 mg 1 mg UNSCH PRN IM/SQ HYPOGLYCEMIA-SEE COMMENTS; Start 11/19/16 at 06:30 Potassium Chloride 100 ml @ 50 mls/hr Q2H PRN IV For Potassium 2.8 - 3.2 mEq/L ; Start 11/19/16 at 11:15 Potassium Chloride (KCl 20 Meq Premix Inj) 100 ml @ 50 mls/hr Q2H PRN IV For Potassium 2.8 - 3.2 mEq/L Last administered on 11/19/16 15:55; Start 11/19/16 at 11:15 Potassium Chloride 40 meq 40 meq UNSCH PRN PO/NG For Potassium 3.3 - 3.5 mEq/L Last administered on 11/19/16 18:03; Start 11/19/16 at 11:15 Potassium Chloride 100 ml @ 25 mls/hr UNSCH PRN IV For Potassium 3.3 - 3.5 mEq /L; Start 11/19/16 at 11:15 Potassium Chloride 100 ml @ 50 mls/hr Q2H PRN IV For Potassium 3.3 - 3.5 mEq/L ; Start 11/19/16 at 11:15 Magnesium Sulfate/ Sodium Chloride (Magnesium Sulfate Inj/NS Inj) 100 ml @ 50 mls/hr UNSCH PRN IV For Magnesium 0.9 - 1.1 mg/dL; Start 11/19/16 at 11:15 Magnesium Oxide 800 mg 800 mg UNSCH PRN PO For Magnesium 1.2 - 1.6 mg/dL; Start 11/19/16 at 11:15 Magnesium Sulfate/ Sodium Chloride (Magnesium Sulfate Inj/NS Inj) 100 ml @ 50 mls/hr UNSCH PRN IV For Magnesium 1.2 - 1.6 mg/dL; Start 11/19/16 at 11:15 Potassium Phosphate 2000 mg 2,000 mg Q4H PRN PO For Phosphorus < 2.5 mg/dL; Start 11/19/16 at 11:15 Sodium Phosphate/ Sodium Chloride (Sodium Phosphate Inj/NS 250 ml Inj) 250 ml @ 42 mls/hr UNSCH PRN IV For Phosphorus < 2.5 mg/dL; Start 11/19/16 at 11:15 Potassium Chloride (KCl 40 Meq/30 ml Liq) 40 meq UNSCH PRN PO/TUBE SEE LABEL COMMENTS; Start 11/19/16 at 11:15 Potassium Phosphate 2000 mg 2,000 mg UNSCH PRN PO/TUBE SEE LABEL COMMENTS; Start 11/19/16 at 11:15 Potassium Phosphate 30 mmol/ Sodium Chloride 260 ml @ 42 mls/hr UNSCH PRN IV SEE LABEL COMMENTS; Start 11/19/16 at 11:15 Vancomycin HCl/ Sodium Chloride (Vancomycin Inj/ NS 250 ml Inj) 262.5 ml @ 250 mls/hr Q12H IV Last administered on 11/21/16t 10:46; Start 11/21/16 at 11:00; Stop 11/21/16 at 11:58; Status DC Miscellaneous Information SPECIFIC LAB TO BE DRAWN:VA... ONCE ONCE XX ; Start 11/21/16 at 22:45; Stop 11/21/16 at 22:46; Status Cancel Vancomycin HCl/ Sodium Chloride (Vancomycin Inj/ NS 500 ml Inj) 515 ml @ 250 mls/hr Q12H IV Last administered on 11/23/16 08:29; Start 11/21/16 at 21:00; Stop 11/23/16 at 11:03; Status DC Miscellaneous Information SPECIFIC LAB TO BE DRAWN:VANCOMYCIN TROUGH DATE TO... ONCE ONCE XX Last administered on 11/23/16 08:29; Start 11/23/16 at 08:45; Stop 11/23/16 at 08:46; Status DC Azithromycin/ Sodium Chloride (Zithromax Inj/ NS 250 ml Inj) 250 ml @ 250 mls/ hr Q24H IV Last administered on 11/24/16 20:45; Start 11/21/16 at 20:00 Insulin Detemir (Levemir Inj) 10 units HS SQ Last administered on 11/23/16 21: 40; Start 11/22/16 at 21:00; Stop 11/24/16 at 09:58; Status DC Methylprednisolone Sodium Succinate (SoluMEDROL INJ) 40 mg BID IV PUSH Last administered on 11/23/16 08:07; Start 11/22/16 at 21:00; Stop 11/23/16 at 15:00 ; Status DC Albuterol/ Ipratropium 1 ampule 1 ampule TID NEB NEB Last administered on 11/25 07:19; Start 11/22/16 at 20:00 Vancomycin HCl/ Sodium Chloride (Vancomycin Inj/ NS 500 ml Inj) 517.5 ml @ 250 mls/hr Q12H IV Last administered on 11/25/16 08:09; Start 11/23/16 at 21:00 Miscellaneous Information SPECIFIC LAB TO BE TERRELL... ONCE ONCE XX ; Start at 08:45; Stop 11/25/16 at 08:46; Status DC Methylprednisolone Sodium Succinate (SoluMEDROL INJ) 40 mg DAILY IV PUSH Last administered on 11/25/16 08:09; Start 11/24/16 at 09:00 Insulin Detemir (Levemir Inj) 15 units HS SQ Last administered on 11/24/16 20: 46; Start 11/24/16 at 21:00 Miscellaneous Information SPECIFIC LAB TO BE TERRELL... ONCE ONCE XX ; Start at 20:45; Stop 11/25/16 at 20:46 A/P Assessment and Plan A/P - acute hypoxemic respiratory failure due to right upper lobe pneumonia/ COPD exacerbation- improving slowly continue with broad spectrum IV Abx- continue IV steroid- on neb treatment- keep on oxygen to keep O2 sat > 90%- pulmonary following. -sepsis due to pneumonia; continue Abx as noted above -hypertension; continue metoprolol and norvasc- will monitor and adjust the regimen as needed. -diabetes mellitus; accu-check with SSI- increase long-acting insulin . -DVT/GI prophylaxis with Lovenox and PPI transfer to telemetry today if ok with pulmonary. d/w the [facility]. Trevor Acuna MD Nov 25, 2016 12:22
[2016-11-25] MEDS: ENOXAPARIN SODIUM 40 MG/0.4 ML SYRINGE SQ SCH (15:03)
[2016-11-25] MEDS: AZITHROMYCIN INJ 500 MG in SODIUM CHLOR 0.9% 250 ML INJ 250 ML IV SCH (20:30)
[2016-11-25] MEDS: SODIUM CHLORIDE 0.9% FLUSH 5 ML FLUSH FLUSH SCH (20:31)
[2016-11-25] MEDS: BUDESONIDE-FORMOTEROL 160/4.5 MCG INHALER INH SCH (20:32)
[2016-11-25] MEDS: INSULIN DETEMIR 100 UNITS/ML VIAL SQ SCH (20:32)
[2016-11-26] VITALS (12 sets, daily range): BP systolic 129–154; BP diastolic 59–78; PULSE 52–72; RESP 14–25; TEMP 97.6–98.2; O2SAT 89–95
[2016-11-26] MEDS: PIPERACIL-TAZO 4.5 GM PREMIX 100 ML IV SCH ×2 (03:59→11:49)
[2016-11-26] MEDS: PRIMIDONE 50 MG TAB PO SCH ×2 (05:13→21:38)
[2016-11-26] MEDS: INSULIN ASPART SUPPLEMENTAL SCALE SQ SCH ×4 (06:21→21:34)
[2016-11-26] MEDS: RESP: ALBUTEROL 2.5 MG/IPRATROPIUM 0.5 MG NEB (SCH) NEB ×3 (08:34→19:15)
[2016-11-26] MEDS: PANTOPRAZOLE SOD 20 MG DELAYED RELEASE TAB PO SCH ×2 (09:03→21:39)
[2016-11-26] MEDS: METOPROLOL TARTRATE 50 MG TAB PO SCH ×4 (09:03→21:00)
[2016-11-26] MEDS: guaiFENesin E.R. 600 MG TAB PO SCH ×2 (09:03→21:35)
[2016-11-26] MEDS: GABAPENTIN 100 MG CAP PO SCH ×2 (09:03→21:35)
[2016-11-26] MEDS: predniSONE 20 MG TAB PO SCH (09:04)
[2016-11-26] MEDS: SODIUM CHLORIDE 0.9% FLUSH 5 ML FLUSH FLUSH SCH ×2 (09:04→21:40)
[2016-11-26] MEDS: MONTELUKAST SODIUM 10 MG TAB PO SCH (09:04)
[2016-11-26] MEDS: BUDESONIDE-FORMOTEROL 160/4.5 MCG INHALER INH SCH ×2 (09:04→21:41)
[2016-11-26] MEDS: hydrALAZINE HCL 25 MG TAB PO SCH ×2 (09:04→21:36)
[2016-11-26] MEDS: VANCOMYCIN INJ 1,750 MG in SODIUM CHLORID 0.9% 500 ML INJ 500 ML IV SCH (09:07)
--- NOTE | 2016-11-26 12:51 | HHI.PR ---
Subjective Remarks in no distress and overall doing fine. no new complaints. Objective Vitals Vital Signs Date Time Temp Pulse Resp B/P Pulse Ox O2 Delivery O2 Flow Rate FiO2 11/26/16 10:00 58 11/26/16 08:34 93 Nasal Cannula 3.00 11/26/16 08:00 98.2 58 14 153/65 93 11/26/16 08:00 58 11/26/16 07:00 93 Nasal Cannula 5.00 11/26/16 06:00 58 11/26/16 04:00 97.6 52 14 136/62 89 11/26/16 04:00 52 11/26/16 02:00 58 11/26/16 00:00 60 11/26/16 00:00 97.9 60 25 154/72 90 11/25/16 22:00 64 11/25/16 20:00 97.7 62 24 136/62 93 11/25/16 20:00 62 11/25/16 19:00 93 Nasal Cannula 5.00 11/25/16 18:00 66 11/25/16 16:00 61 11/25/16 16:00 97.8 61 16 124/59 92 11/25/16 14:00 66 I/O 11/25/16 11/25/16 11/25/16 11/26/16 11/26/16 11/26/16 07:00 15:00 23:00 07:00 15:00 23:00 Intake Total 1574 ml 1378 ml 780 ml 1497 ml Output Total 1850 ml 1800 ml 750 ml 2325 ml Balance -276 ml -422 ml 30 ml -828 ml Intake Oral 600 ml 720 ml 400 ml 800 ml IV Total 974 ml 658 ml 380 ml 697 ml Output Urine Total 1850 ml 1800 ml 750 ml 2325 ml # Bowel Movements 0 1 0 0 Result Diagram: 11/24/16 0344 11/24/16 0344 Imaging Last Impressions Chest X-Ray 11/25/16 0800 Signed Impressions: Service Date/Time: Friday, November 25, 2016 08:23 - CONCLUSION: Persistent right upper lobe consolidation or atelectasis. There does appear to be some improvement on the current exam. Ralph Smith MD CT Angiography 11/16/16 0000 Signed Impressions: Service Date/Time: Wednesday, November 16, 2016 20:34 - CONCLUSION: No evidence of pulmonary embolism. Consolidating airspace disease in the right upper lobe. Mild subsegmental air space disease in both lower lobes. Sacha Walls MD Objective Remarks GENERAL: with some sob and cough CARDIOVASCULAR: Regular rate and regular rhythm without murmurs, gallops, or rubs. RESPIRATORY: diminished air entry on right base GASTROINTESTINAL: Abdomen soft, non-tender, nondistended. Normal, active bowel sounds MUSCULOSKELETAL: Extremities without clubbing, cyanosis, or edema. NEURO: Alert & Oriented x4 to person, place, time, situation. Moves all ext x4 Medications and IVs Current Medications Ceftriaxone Sodium 1000 mg/ Sodium Chloride 25 ml @ 50 mls/hr ONCE ONCE IV Last administered on 11/16/16 20:10; Start 11/16/16 at 20:00; Stop 11/16/16 at 20: 29; Status DC Azithromycin 500 mg/Sodium Chloride 250 ml @ 250 mls/hr ONCE ONCE IV Last administered on 11/16/16 20:09; Start 11/16/16 at 20:00; Stop 11/16/16 at 20:59; Status DC Sodium Chloride (NS 1000 ml Inj) 1,000 ml @ 1,000 mls/hr Q1H IV Last administered on 11/16/16 20:27; Start 11/16/16 at 20:20; Stop 11/16/16 at 21:19; Status DC Potassium Chloride 40 meq 40 meq ONCE ONCE PO Last administered on 11/16/16 20 :27; Start 11/16/16 at 20:30; Stop 11/16/16 at 20:31; Status DC Sodium Chloride (NS 1000 ml Inj) 1,000 ml @ 999 mls/hr BOLUS ONCE IV Last administered on 11/16/16 21:04; Start 11/16/16 at 20:30; Stop 11/16/16 at 21:30; Status DC Iohexol 73 ml 73 ml STK-MED ONCE IV Last administered on 11/16/16 20:36; Start 11/16/16 at 20:36; Stop 11/16/16 at 20:37; Status DC Ceftriaxone Sodium 1000 mg/ Sodium Chloride 100 ml @ 200 mls/hr Q24H IV ; Start 11/17/16 at 20:00; Stop 11/17/16 at 20:00; Status DC Azithromycin/ Sodium Chloride (Zithromax Inj/ NS 250 ml Inj) 250 ml @ 250 mls/ hr Q24H IV Last administered on 11/20/16 20:57; Start 11/17/16 at 21:00; Stop at 12:00; Status DC Guaifenesin (Mucinex Er) 600 mg BID PO Last administered on 11/26/16 09:03; Start 11/17/16 at 09:00 Budesonide/ Formoterol Fumarate (Symbicort 160-4.5 Inh) 2 puff Q12HR INH Last administered on 11/26/16 09:04; Start 11/16/16 at 21:45 Albuterol/ Ipratropium (Duoneb Neb) 1 ampule Q4HR WHILE AWAKE NEB NEB Last administered on 11/17/16 20:12; Start 11/17/16 at 08:00; Stop 11/17/16 at 23:16; Status DC Albuterol/ Ipratropium (Duoneb Neb) 1 ampule Q2HR NEB PRN NEB SOB/WHEEZING Last administered on 11/22/16 07:36; Start 11/16/16 at 21:45 Dextrose (D50w (Vial) Inj) 25 ml UNSCH PRN IV PUSH HYPOGLYCEMIA-SEE COMMENTS; Start 11/16/16 at 21:45; Stop 11/19/16 at 06:32; Status DC Glucagon (Glucagon Inj) 1 mg UNSCH PRN OTHER HYPOGLYCEMIA-SEE COMMENTS; Start 11/16/16 at 21:45; Stop 11/19/16 at 06:32; Status DC Insulin Aspart 1 1 ACHS SLIDING SCALE SQ Last administered on 11/19/16 06:20; Start 11/17/16 at 07:00; Stop 11/19/16 at 06:30; Status DC Sodium Chloride (NS 1000 ml Inj) 1,000 ml @ 100 mls/hr Q10H IV Last administered on 11/23/16 03:31; Start 11/16/16 at 21:31; Status Hold IV Flush (NS Flush) 2 ml UNSCH PRN FLUSH FLUSH AFTER USING IV ACCESS; Start 11/16/16 at 21:45 IV Flush (NS Flush) 2 ml BID FLUSH Last administered on 11/26/16 09:04; Start 11/17/16 at 09:00 Ondansetron HCl (Zofran Inj) 4 mg Q6H PRN IVP NAUSEA OR VOMITING; Start at 21:45 Bisacodyl (Dulcolax Supp) 10 mg DAILY PRN [place] CONSTIPATION; Start 11/16/16 at 21: 45 Acetaminophen (Tylenol) 650 mg Q6H PRN PO FEVER/PAIN SCALE 1 TO 2 Last administered on 11/17/16 19:42; Start 11/16/16 at 21:45 Acetaminophen/ Hydrocodone Bitart (Echo 5-325 Mg) 1 tab Q4H PRN PO PAIN SCALE 3 TO 5; Start 11/16/16 at 21:45 Morphine Sulfate (Morphine Inj) 2 mg Q3H PRN IV Pain 6-10; Start 11/16/16 at 21: 45 Amlodipine Besylate (Norvasc) 10 mg DAILY PO Last administered on 11/26/16 09: 03; Start 11/17/16 at 09:00 Gabapentin (Neurontin) 100 mg BID PO Last administered on 11/26/16 09:03; Start 11/17/16 at 09:00 Hydralazine HCl (Apresoline) 25 mg BID PO Last administered on 11/26/16 09:04 ; Start 11/17/16 at 09:00 Metoprolol Tartrate (Lopressor) 100 mg BID PO Last administered on 11/18/16 08: 24; Start 11/17/16 at 09:00; Stop 11/18/16 at 13:19; Status DC Montelukast Sodium (Singulair) 10 mg DAILY PO Last administered on 11/26/16 09 :04; Start 11/17/16 at 09:00 Pantoprazole Sodium (Protonix) 20 mg BID PO Last administered on 11/26/16 09: 03; Start 11/17/16 at 09:00 Primidone (Mysoline) 50 mg HS PO Last administered on 11/25/16 20:31; Start at 21:00 Primidone (Mysoline) 100 mg DAILY@0600 PO Last administered on 11/26/16 05:13 ; Start 11/17/16 at 06:00 Diphenhydramine HCl 25 mg 25 mg ONCE ONCE PO Last administered on 11/17/16 02: 35; Start 11/17/16 at 02:30; Stop 11/17/16 at 02:33; Status DC Potassium Chloride 100 ml @ 50 mls/hr Q2H IV Last administered on 11/17/16 11: 24; Start 11/17/16 at 08:00; Stop 11/17/16 at 11:59; Status DC Magnesium Sulfate/ Dextrose (Magnesium Sulfate 1 Gm Premix) 100 ml @ 100 mls/ hr ONCE ONCE IV Last administered on 11/17/16 14:01; Start 11/17/16 at 09:15; Stop 11/17/16 at 10:21; Status DC Benzonatate 200 mg 200 mg Q8H PRN PO COUGH Last administered on 11/22/16 21:42 ; Start 11/17/16 at 09:15 Pharmacy Profile Note 0 ml @ 0 mls/hr UNSCH OTHER ; Start 11/17/16 at 15:45; Stop 11/26/16 at 12:12; Status DC Piperacillin Sod/ Tazobactam Sod (Zosyn 4.5 Gm Premix) 100 ml @ 200 mls/hr Q6H IV Last administered on 11/26/16 11:49; Start 11/17/16 at 17:00; Stop 11/26/16 at 12:13; Status DC Tuberculin PPD (Ppd Inj) 5 units ONCE ONCE ID Last administered on 11/17/16 17 :46; Start 11/17/16 at 17:00; Stop 11/17/16 at 17:01; Status DC Miscellaneous Information 1 1 Q24H OTHER Last administered on 11/20/16 17:00; Start 11/18/16 at 17:00; Stop 11/20/16 at 17:01; Status DC Vancomycin HCl/ Sodium Chloride (Vancomycin Inj/ NS 500 ml Inj) 517.5 ml @ 250 mls/hr Q24H IV Last administered on 11/20/16 18:19; Start 11/17/16 at 18:00; Stop 11/20/16 at 19:12; Status DC Miscellaneous Information SPECIFIC LAB TO BE TERRELL... ONCE ONCE XX Last administered on 11/20/16 18:00; Start 11/20/16 at 17:45; Stop 11/20/16 at 17:46; Status DC Potassium Chloride (KCl) 20 meq ONCE ONCE PO Last administered on 11/17/16 21: 10; Start 11/17/16 at 21:00; Stop 11/17/16 at 21:01; Status DC Methylprednisolone Sodium Succinate (SoluMEDROL INJ) 125 mg ONCE ONCE IV PUSH Last administered on 11/17/16 21:10; Start 11/17/16 at 21:00; Stop 11/17/16 at 21: 01; Status DC Methylprednisolone Sodium Succinate 40 mg 40 mg Q6H IV PUSH Last administered on 11/22/16 14:06; Start 11/18/16 at 03:00; Stop 11/22/16 at 17:13; Status DC Calcium Gluconate/ Sodium Chloride (Calcium Gluconate Inj/NS Inj) 110 ml @ 110 mls/hr ONCE ONCE IV Last administered on 11/17/16 22:54; Start 11/17/16 at 22: 00; Stop 11/17/16 at 22:59; Status DC Albuterol/ Ipratropium (Duoneb Neb) 1 ampule Q4HR NEB NEB Last administered on 11/21/16 23:45; Start 11/18/16 at 00:00; Stop 11/22/16 at 00:00; Status DC Furosemide (Lasix Inj) 20 mg ONCE ONCE IV PUSH Last administered on 11/18/16 01:04; Start 11/18/16 at 00:45; Stop 11/18/16 at 00:46; Status DC Guaifenesin/ Dextromethorphan (Robitussin Dm 200-20 Mg/10 ml Liq) 10 ml Q4H PRN PO cough; Start 11/18/16 at 00:45 Temazepam (Restoril) 7.5 mg ONCE ONCE PO Last administered on 11/18/16 01:51; Start 11/18/16 at 01:45; Stop 11/18/16 at 01:46; Status DC Potassium Chloride (KCl) 40 meq NOW ONCE PO Last administered on 11/18/16 08: 24; Start 11/18/16 at 08:15; Stop 11/18/16 at 08:16; Status DC Enoxaparin Sodium (Lovenox Inj) 40 mg Q24H SQ Last administered on 11/25/16 15 :03; Start 11/18/16 at 14:00 Metoprolol Tartrate (Lopressor) 50 mg QID PO Last administered on 11/26/16 09: 03; Start 11/18/16 at 18:00 Zolpidem Tartrate (Ambien) 5 mg HS PRN PO insomnia Last administered on 23:59; Start 11/18/16 at 18:00 Potassium Chloride (KCl) 20 meq NOW ONCE PO Last administered on 11/19/16 06: 24; Start 11/19/16 at 06:15; Stop 11/19/16 at 06:16; Status DC Potassium Chloride (KCl) 20 meq ONCE ONCE PO Last administered on 11/19/16 06: 24; Start 11/19/16 at 06:30; Stop 11/19/16 at 06:31; Status DC Potassium Chloride (KCl) 20 meq ONCE ONCE PO ; Start 11/19/16 at 06:30; Stop 11/19/16 at 06:31; Status Cancel Insulin Aspart (NovoLOG SUPPLEMENTAL SCALE) 1 ACHS SQ Last administered on 11/26 11:50; Start 11/19/16 at 07:00 Dextrose (D50w (Vial) Inj) 25 ml UNSCH PRN IV HYPOGLYCEMIA-SEE COMMENTS; Start 11/19/16 at 06:30 Glucagon 1 mg 1 mg UNSCH PRN IM/SQ HYPOGLYCEMIA-SEE COMMENTS; Start 11/19/16 at 06:30 Potassium Chloride 100 ml @ 50 mls/hr Q2H PRN IV For Potassium 2.8 - 3.2 mEq/L ; Start 11/19/16 at 11:15; Stop 11/25/16 at 12:25; Status DC Potassium Chloride (KCl 20 Meq Premix Inj) 100 ml @ 50 mls/hr Q2H PRN IV For Potassium 2.8 - 3.2 mEq/L Last administered on 11/19/16 15:55; Start 11/19/16 at 11:15; Stop 11/25/16 at 12:25; Status DC Potassium Chloride 40 meq 40 meq UNSCH PRN PO/NG For Potassium 3.3 - 3.5 mEq/L Last administered on 11/19/16 18:03; Start 11/19/16 at 11:15; Stop 11/25/16 at 12 :27; Status DC Potassium Chloride 100 ml @ 25 mls/hr UNSCH PRN IV For Potassium 3.3 - 3.5 mEq /L; Start 11/19/16 at 11:15; Stop 11/25/16 at 12:26; Status DC Potassium Chloride 100 ml @ 50 mls/hr Q2H PRN IV For Potassium 3.3 - 3.5 mEq/L ; Start 11/19/16 at 11:15; Stop 11/25/16 at 12:26; Status DC Magnesium Sulfate/ Sodium Chloride (Magnesium Sulfate Inj/NS Inj) 100 ml @ 50 mls/hr UNSCH PRN IV For Magnesium 0.9 - 1.1 mg/dL; Start 11/19/16 at 11:15; Stop 11/25/16 at 12:26; Status DC Magnesium Oxide 800 mg 800 mg UNSCH PRN PO For Magnesium 1.2 - 1.6 mg/dL; Start 11/19/16 at 11:15 Magnesium Sulfate/ Sodium Chloride (Magnesium Sulfate Inj/NS Inj) 100 ml @ 50 mls/hr UNSCH PRN IV For Magnesium 1.2 - 1.6 mg/dL; Start 11/19/16 at 11:15; Stop 11/25/16 at 12:27; Status DC Potassium Phosphate 2000 mg 2,000 mg Q4H PRN PO For Phosphorus < 2.5 mg/dL; Start 11/19/16 at 11:15; Stop 11/25/16 at 12:27; Status DC Sodium Phosphate/ Sodium Chloride (Sodium Phosphate Inj/NS 250 ml Inj) 250 ml @ 42 mls/hr UNSCH PRN IV For Phosphorus < 2.5 mg/dL; Start 11/19/16 at 11:15; Stop 11/25/16 at 12:27; Status DC Potassium Chloride (KCl 40 Meq/30 ml Liq) 40 meq UNSCH PRN PO/TUBE SEE LABEL COMMENTS; Start 11/19/16 at 11:15; Stop 11/25/16 at 12:27; Status DC Potassium Phosphate 2000 mg 2,000 mg UNSCH PRN PO/TUBE SEE LABEL COMMENTS; Start 11/19/16 at 11:15; Stop 11/25/16 at 12:27; Status DC Potassium Phosphate 30 mmol/ Sodium Chloride 260 ml @ 42 mls/hr UNSCH PRN IV SEE LABEL COMMENTS; Start 11/19/16 at 11:15; Stop 11/25/16 at 12:27; Status DC Vancomycin HCl/ Sodium Chloride (Vancomycin Inj/ NS 250 ml Inj) 262.5 ml @ 250 mls/hr Q12H IV Last administered on 11/21/16 10:46; Start 11/21/16 at 11:00; Stop 11/21/16 at 11:58; Status DC Miscellaneous Information SPECIFIC LAB TO BE DRAWN:VA... ONCE ONCE XX ; Start 11/21/16 at 22:45; Stop 11/21/16 at 22:46; Status Cancel Vancomycin HCl/ Sodium Chloride (Vancomycin Inj/ NS 500 ml Inj) 515 ml @ 250 mls/hr Q12H IV Last administered on 11/23/16 08:29; Start 11/21/16 at 21:00; Stop 11/23/16 at 11:03; Status DC Miscellaneous Information SPECIFIC LAB TO BE DRAWN:VANCOMYCIN TROUGH DATE TO... ONCE ONCE XX Last administered on 11/23/16 08:29; Start 11/23/16 at 08:45; Stop 11/23/16 at 08:46; Status DC Azithromycin/ Sodium Chloride (Zithromax Inj/ NS 250 ml Inj) 250 ml @ 250 mls/ hr Q24H IV Last administered on 11/25/16 20:30; Start 11/21/16 at 20:00; Stop 11/26/16 at 12:13; Status DC Insulin Detemir (Levemir Inj) 10 units HS SQ Last administered on 11/23/16 21: 40; Start 11/22/16 at 21:00; Stop 11/24/16 at 09:58; Status DC Methylprednisolone Sodium Succinate (SoluMEDROL INJ) 40 mg BID IV PUSH Last administered on 11/23/16 08:07; Start 11/22/16 at 21:00; Stop 11/23/16 at 15:00 ; Status DC Albuterol/ Ipratropium 1 ampule 1 ampule TID NEB NEB Last administered on 11/26 08:34; Start 11/22/16 at 20:00 Vancomycin HCl/ Sodium Chloride (Vancomycin Inj/ NS 500 ml Inj) 517.5 ml @ 250 mls/hr Q12H IV Last administered on 11/26/16 09:07; Start 11/23/16 at 21:00; Stop 11/26/16 at 12:13; Status DC Miscellaneous Information SPECIFIC LAB TO BE TERRELL... ONCE ONCE XX ; Start at 08:45; Stop 11/25/16 at 08:46; Status DC Methylprednisolone Sodium Succinate (SoluMEDROL INJ) 40 mg DAILY IV PUSH Last administered on 11/25/16 08:09; Start 11/24/16 at 09:00; Stop 11/25/16 at 16:43 ; Status DC Insulin Detemir (Levemir Inj) 15 units HS SQ Last administered on 11/25/16 20: 32; Start 11/24/16 at 21:00 Miscellaneous Information SPECIFIC LAB TO BE TERRELL... ONCE ONCE XX Last administered on 11/25/16 20:45; Start 11/25/16 at 20:45; Stop 11/25/16 at 20:46 ; Status DC Prednisone (Deltasone) 20 mg DAILY PO Last administered on 11/26/16 09:04; Start 11/26/16 at 09:00 Miscellaneous Information SPECIFIC LAB TO BE TERRELL... ONCE ONCE XX ; Start at 08:45; Stop 11/27/16 at 08:46 Ciprofloxacin (Cipro) 500 mg Q12HR PO ; Start 11/26/16 at 21:00 Lactobacillus Acidophilus (Lactinex) 1 tab Q12HR PO ; Start 11/26/16 at 21:00 A/P Assessment and Plan A/P - acute hypoxemic respiratory failure due to right upper lobe pneumonia/ COPD exacerbation- improving slowly continue with antibiotic and steroid- on neb treatment- keep on oxygen to keep O2 sat > 90%- pulmonary following. walk test today. -sepsis due to pneumonia; continue Abx as noted above -hypertension; continue metoprolol and norvasc- will monitor and adjust the regimen as needed. -diabetes mellitus; accu-check with SSI- continue long-acting insulin . -DVT/GI prophylaxis with Lovenox and PPI Discharge Planning dc planning within the next one-two days. walk test before discharge. Trevor Acuna MD Nov 26, 2016 12:51
[2016-11-26] MEDS: ENOXAPARIN SODIUM 40 MG/0.4 ML SYRINGE SQ SCH (16:50)
[2016-11-26] MEDS: INSULIN DETEMIR 100 UNITS/ML VIAL SQ SCH (21:34)
[2016-11-26] MEDS: CIPROFLOXACIN 500 MG TAB PO SCH (21:36)
[2016-11-26] MEDS: LACTOBACILLUS ACIDOPHILUS TAB PO SCH (21:38)
[2016-11-27] VITALS (11 sets, daily range): BP systolic 128–157; BP diastolic 60–88; PULSE 56–69; RESP 18–22; TEMP 97.4–98.7; O2SAT 92–97
[2016-11-27] MEDS: PRIMIDONE 50 MG TAB PO SCH ×2 (06:04→21:59)
[2016-11-27] MEDS: INSULIN ASPART SUPPLEMENTAL SCALE SQ SCH ×4 (06:06→22:03)
[2016-11-27] MEDS: RESP: ALBUTEROL 2.5 MG/IPRATROPIUM 0.5 MG NEB (SCH) NEB ×3 (07:39→19:21)
[2016-11-27] MEDS ORDERED: PHARMACY ORDERED LAB XX ONE (08:45)
[2016-11-27] MEDS: GABAPENTIN 100 MG CAP PO SCH ×2 (08:55→22:00)
[2016-11-27] MEDS: METOPROLOL TARTRATE 50 MG TAB PO SCH ×4 (08:55→22:01)
[2016-11-27] MEDS: LACTOBACILLUS ACIDOPHILUS TAB PO SCH ×2 (08:55→22:00)
[2016-11-27] MEDS: hydrALAZINE HCL 25 MG TAB PO SCH ×2 (08:55→22:00)
[2016-11-27] MEDS: predniSONE 20 MG TAB PO SCH (08:55)
[2016-11-27] MEDS: guaiFENesin E.R. 600 MG TAB PO SCH ×2 (08:55→21:59)
[2016-11-27] MEDS: MONTELUKAST SODIUM 10 MG TAB PO SCH (08:55)
[2016-11-27] MEDS: CIPROFLOXACIN 500 MG TAB PO SCH ×2 (08:56→21:59)
[2016-11-27] MEDS: SODIUM CHLORIDE 0.9% FLUSH 5 ML FLUSH FLUSH SCH ×2 (08:56→22:05)
[2016-11-27] MEDS: PANTOPRAZOLE SOD 20 MG DELAYED RELEASE TAB PO SCH ×2 (08:56→22:00)
[2016-11-27] MEDS: BUDESONIDE-FORMOTEROL 160/4.5 MCG INHALER INH SCH ×2 (08:57→22:05)
--- NOTE | 2016-11-27 12:00 | HHI.PR ---
Subjective Remarks looks comfortable. no fever. no new complaints and wants to go home today. at the bedside. d/w the RN. Objective Vitals Vital Signs Date Time Temp Pulse Resp B/P Pulse Ox O2 Delivery O2 Flow Rate FiO2 11/27/16 09:45 Nasal Cannula 4.00 45 11/27/16 08:00 98.1 67 20 157/74 94 11/27/16 07:42 93 Nasal Cannula 4.00 11/27/16 04:00 97.6 56 18 154/72 92 11/27/16 00:00 98.2 58 18 128/60 97 11/26/16 20:00 65 11/26/16 20:00 Nasal Cannula 4.00 Non-Rebreather 11/26/16 20:00 97.6 66 16 129/59 94 11/26/16 19:15 95 Nasal Cannula 5.00 11/26/16 16:00 98.1 66 18 130/64 95 11/26/16 12:30 97.9 65 20 146/78 93 11/26/16 12:30 Nasal Cannula 3.00 11/26/16 12:00 65 11/26/16 12:00 97.9 72 15 144/62 92 I/O 11/26/16 11/26/16 11/26/16 11/27/16 11/27/16 11/27/16 07:00 15:00 23:00 07:00 15:00 23:00 Intake Total 1497 ml 480 ml 240 ml 360 ml Output Total 2325 ml 500 ml Balance -828 ml -20 ml 240 ml 360 ml Intake Oral 800 ml 480 ml 240 ml 360 ml IV Total 697 ml Output Urine Total 2325 ml 500 ml # Voids 2 3 # Bowel Movements 0 2 2 0 Result Diagram: 11/24/16 0344 11/24/16 0344 Imaging Last Impressions Chest X-Ray 11/25/16 0800 Signed Impressions: Service Date/Time: Friday, November 25, 2016 08:23 - CONCLUSION: Persistent right upper lobe consolidation or atelectasis. There does appear to be some improvement on the current exam. Ralph Smith MD CT Angiography 11/16/16 0000 Signed Impressions: Service Date/Time: Wednesday, November 16, 2016 20:34 - CONCLUSION: No evidence of pulmonary embolism. Consolidating airspace disease in the right upper lobe. Mild subsegmental air space disease in both lower lobes. Sacha Walls MD Objective Remarks GENERAL: with some sob and cough CARDIOVASCULAR: Regular rate and regular rhythm without murmurs, gallops, or rubs. RESPIRATORY: better air entry present GASTROINTESTINAL: Abdomen soft, non-tender, nondistended. Normal, active bowel sounds MUSCULOSKELETAL: Extremities without clubbing, cyanosis, or edema. NEURO: Alert & Oriented x4 to person, place, time, situation. Moves all ext x4 Procedures none Medications and IVs Current Medications Ceftriaxone Sodium 1000 mg/ Sodium Chloride 25 ml @ 50 mls/hr ONCE ONCE IV Last administered on 11/16/16 20:10; Start 11/16/16 at 20:00; Stop 11/16/16 at 20: 29; Status DC Azithromycin 500 mg/Sodium Chloride 250 ml @ 250 mls/hr ONCE ONCE IV Last administered on 11/16/16 20:09; Start 11/16/16 at 20:00; Stop 11/16/16 at 20:59; Status DC Sodium Chloride (NS 1000 ml Inj) 1,000 ml @ 1,000 mls/hr Q1H IV Last administered on 11/16/16 20:27; Start 11/16/16 at 20:20; Stop 11/16/16 at 21:19; Status DC Potassium Chloride 40 meq 40 meq ONCE ONCE PO Last administered on 11/16/16 20 :27; Start 11/16/16 at 20:30; Stop 11/16/16 at 20:31; Status DC Sodium Chloride (NS 1000 ml Inj) 1,000 ml @ 999 mls/hr BOLUS ONCE IV Last administered on 11/16/16 21:04; Start 11/16/16 at 20:30; Stop 11/16/16 at 21:30; Status DC Iohexol 73 ml 73 ml STK-MED ONCE IV Last administered on 11/16/16 20:36; Start 11/16/16 at 20:36; Stop 11/16/16 at 20:37; Status DC Ceftriaxone Sodium 1000 mg/ Sodium Chloride 100 ml @ 200 mls/hr Q24H IV ; Start 11/17/16 at 20:00; Stop 11/17/16 at 20:00; Status DC Azithromycin/ Sodium Chloride (Zithromax Inj/ NS 250 ml Inj) 250 ml @ 250 mls/ hr Q24H IV Last administered on 11/20/16 20:57; Start 11/17/16 at 21:00; Stop at 12:00; Status DC Guaifenesin (Mucinex Er) 600 mg BID PO Last administered on 11/27/16 08:55; Start 11/17/16 at 09:00 Budesonide/ Formoterol Fumarate (Symbicort 160-4.5 Inh) 2 puff Q12HR INH Last administered on 11/27/16 08:57; Start 11/16/16 at 21:45 Albuterol/ Ipratropium (Duoneb Neb) 1 ampule Q4HR WHILE AWAKE NEB NEB Last administered on 11/17/16 20:12; Start 11/17/16 at 08:00; Stop 11/17/16 at 23:16; Status DC Albuterol/ Ipratropium (Duoneb Neb) 1 ampule Q2HR NEB PRN NEB SOB/WHEEZING Last administered on 11/22/16 07:36; Start 11/16/16 at 21:45 Dextrose (D50w (Vial) Inj) 25 ml UNSCH PRN IV PUSH HYPOGLYCEMIA-SEE COMMENTS; Start 11/16/16 at 21:45; Stop 11/19/16 at 06:32; Status DC Glucagon (Glucagon Inj) 1 mg UNSCH PRN OTHER HYPOGLYCEMIA-SEE COMMENTS; Start 11/16/16 at 21:45; Stop 11/19/16 at 06:32; Status DC Insulin Aspart 1 1 ACHS SLIDING SCALE SQ Last administered on 11/19/16 06:20; Start 11/17/16 at 07:00; Stop 11/19/16 at 06:30; Status DC Sodium Chloride (NS 1000 ml Inj) 1,000 ml @ 100 mls/hr Q10H IV Last administered on 11/23/16 03:31; Start 11/16/16 at 21:31; Status Hold IV Flush (NS Flush) 2 ml UNSCH PRN FLUSH FLUSH AFTER USING IV ACCESS; Start 11/16/16 at 21:45 IV Flush (NS Flush) 2 ml BID FLUSH Last administered on 11/27/16 08:56; Start 11/17/16 at 09:00 Ondansetron HCl (Zofran Inj) 4 mg Q6H PRN IVP NAUSEA OR VOMITING; Start at 21:45 Bisacodyl (Dulcolax Supp) 10 mg DAILY PRN DE CONSTIPATION; Start 11/16/16 at 21: 45 Acetaminophen (Tylenol) 650 mg Q6H PRN PO FEVER/PAIN SCALE 1 TO 2 Last administered on 11/17/16 19:42; Start 11/16/16 at 21:45 Acetaminophen/ Hydrocodone Bitart ([place] 5-325 Mg) 1 tab Q4H PRN PO PAIN SCALE 3 TO 5; Start 11/16/16 at 21:45 Morphine Sulfate (Morphine Inj) 2 mg Q3H PRN IV Pain 6-10; Start 11/16/16 at 21: 45 Amlodipine Besylate (Norvasc) 10 mg DAILY PO Last administered on 11/27/16 09: 00; Start 11/17/16 at 09:00 Gabapentin (Neurontin) 100 mg BID PO Last administered on 11/27/16 08:55; Start 11/17/16 at 09:00 Hydralazine HCl (Apresoline) 25 mg BID PO Last administered on 11/27/16 08:55 ; Start 11/17/16 at 09:00 Metoprolol Tartrate (Lopressor) 100 mg BID PO Last administered on 11/18/16 08: 24; Start 11/17/16 at 09:00; Stop 11/18/16 at 13:19; Status DC Montelukast Sodium (Singulair) 10 mg DAILY PO Last administered on 11/27/16 08 :55; Start 11/17/16 at 09:00 Pantoprazole Sodium (Protonix) 20 mg BID PO Last administered on 11/27/16 08: 56; Start 11/17/16 at 09:00 Primidone (Mysoline) 50 mg HS PO Last administered on 11/26/16 21:38; Start at 21:00 Primidone (Mysoline) 100 mg DAILY@0600 PO Last administered on 11/27/16 06:04 ; Start 11/17/16 at 06:00 Diphenhydramine HCl 25 mg 25 mg ONCE ONCE PO Last administered on 11/17/16 02: 35; Start 11/17/16 at 02:30; Stop 11/17/16 at 02:33; Status DC Potassium Chloride 100 ml @ 50 mls/hr Q2H IV Last administered on 11/17/16 11: 24; Start 11/17/16 at 08:00; Stop 11/17/16 at 11:59; Status DC Magnesium Sulfate/ Dextrose (Magnesium Sulfate 1 Gm Premix) 100 ml @ 100 mls/ hr ONCE ONCE IV Last administered on 11/17/16 14:01; Start 11/17/16 at 09:15; Stop 11/17/16 at 10:21; Status DC Benzonatate 200 mg 200 mg Q8H PRN PO COUGH Last administered on 11/22/16 21:42 ; Start 11/17/16 at 09:15 Pharmacy Profile Note 0 ml @ 0 mls/hr UNSCH OTHER ; Start 11/17/16 at 15:45; Stop 11/26/16 at 12:12; Status DC Piperacillin Sod/ Tazobactam Sod (Zosyn 4.5 Gm Premix) 100 ml @ 200 mls/hr Q6H IV Last administered on 11/26/16 11:49; Start 11/17/16 at 17:00; Stop 11/26/16 at 12:13; Status DC Tuberculin PPD (Ppd Inj) 5 units ONCE ONCE ID Last administered on 11/17/16 17 :46; Start 11/17/16 at 17:00; Stop 11/17/16 at 17:01; Status DC Miscellaneous Information 1 1 Q24H OTHER Last administered on 11/20/16 17:00; Start 11/18/16 at 17:00; Stop 11/20/16 at 17:01; Status DC Vancomycin HCl/ Sodium Chloride (Vancomycin Inj/ NS 500 ml Inj) 517.5 ml @ 250 mls/hr Q24H IV Last administered on 11/20/16 18:19; Start 11/17/16 at 18:00; Stop 11/20/16 at 19:12; Status DC Miscellaneous Information SPECIFIC LAB TO BE TERRELL... ONCE ONCE XX Last administered on 11/20/16 18:00; Start 11/20/16 at 17:45; Stop 11/20/16 at 17:46; Status DC Potassium Chloride (KCl) 20 meq ONCE ONCE PO Last administered on 11/17/16 21: 10; Start 11/17/16 at 21:00; Stop 11/17/16 at 21:01; Status DC Methylprednisolone Sodium Succinate (SoluMEDROL INJ) 125 mg ONCE ONCE IV PUSH Last administered on 11/17/16 21:10; Start 11/17/16 at 21:00; Stop 11/17/16 at 21: 01; Status DC Methylprednisolone Sodium Succinate 40 mg 40 mg Q6H IV PUSH Last administered on 11/22/16 14:06; Start 11/18/16 at 03:00; Stop 11/22/16 at 17:13; Status DC Calcium Gluconate/ Sodium Chloride (Calcium Gluconate Inj/NS Inj) 110 ml @ 110 mls/hr ONCE ONCE IV Last administered on 11/17/16 22:54; Start 11/17/16 at 22: 00; Stop 11/17/16 at 22:59; Status DC Albuterol/ Ipratropium (Duoneb Neb) 1 ampule Q4HR NEB NEB Last administered on 11/21/16 23:45; Start 11/18/16 at 00:00; Stop 11/22/16 at 00:00; Status DC Furosemide (Lasix Inj) 20 mg ONCE ONCE IV PUSH Last administered on 11/18/16 01:04; Start 11/18/16 at 00:45; Stop 11/18/16 at 00:46; Status DC Guaifenesin/ Dextromethorphan (Robitussin Dm 200-20 Mg/10 ml Liq) 10 ml Q4H PRN PO cough; Start 11/18/16 at 00:45 Temazepam (Restoril) 7.5 mg ONCE ONCE PO Last administered on 11/18/16 01:51; Start 11/18/16 at 01:45; Stop 11/18/16 at 01:46; Status DC Potassium Chloride (KCl) 40 meq NOW ONCE PO Last administered on 11/18/16 08: 24; Start 11/18/16 at 08:15; Stop 11/18/16 at 08:16; Status DC Enoxaparin Sodium (Lovenox Inj) 40 mg Q24H SQ Last administered on 11/26/16 16 :50; Start 11/18/16 at 14:00 Metoprolol Tartrate (Lopressor) 50 mg QID PO Last administered on 11/27/16 08: 55; Start 11/18/16 at 18:00 Zolpidem Tartrate (Ambien) 5 mg HS PRN PO insomnia Last administered on 23:59; Start 11/18/16 at 18:00 Potassium Chloride (KCl) 20 meq NOW ONCE PO Last administered on 11/19/16 06: 24; Start 11/19/16 at 06:15; Stop 11/19/16 at 06:16; Status DC Potassium Chloride (KCl) 20 meq ONCE ONCE PO Last administered on 11/19/16 06: 24; Start 11/19/16 at 06:30; Stop 11/19/16 at 06:31; Status DC Potassium Chloride (KCl) 20 meq ONCE ONCE PO ; Start 11/19/16 at 06:30; Stop 11/19/16 at 06:31; Status Cancel Insulin Aspart (NovoLOG SUPPLEMENTAL SCALE) 1 ACHS SQ Last administered on 11/26 21:34; Start 11/19/16 at 07:00 Dextrose (D50w (Vial) Inj) 25 ml UNSCH PRN IV HYPOGLYCEMIA-SEE COMMENTS; Start 11/19/16 at 06:30 Glucagon 1 mg 1 mg UNSCH PRN IM/SQ HYPOGLYCEMIA-SEE COMMENTS; Start 11/19/16 at 06:30 Potassium Chloride 100 ml @ 50 mls/hr Q2H PRN IV For Potassium 2.8 - 3.2 mEq/L ; Start 11/19/16 at 11:15; Stop 11/25/16 at 12:25; Status DC Potassium Chloride (KCl 20 Meq Premix Inj) 100 ml @ 50 mls/hr Q2H PRN IV For Potassium 2.8 - 3.2 mEq/L Last administered on 11/19/16 15:55; Start 11/19/16 at 11:15; Stop 11/25/16 at 12:25; Status DC Potassium Chloride 40 meq 40 meq UNSCH PRN PO/NG For Potassium 3.3 - 3.5 mEq/L Last administered on 11/19/16 18:03; Start 11/19/16 at 11:15; Stop 11/25/16 at 12 :27; Status DC Potassium Chloride 100 ml @ 25 mls/hr UNSCH PRN IV For Potassium 3.3 - 3.5 mEq /L; Start 11/19/16 at 11:15; Stop 11/25/16 at 12:26; Status DC Potassium Chloride 100 ml @ 50 mls/hr Q2H PRN IV For Potassium 3.3 - 3.5 mEq/L ; Start 11/19/16 at 11:15; Stop 11/25/16 at 12:26; Status DC Magnesium Sulfate/ Sodium Chloride (Magnesium Sulfate Inj/NS Inj) 100 ml @ 50 mls/hr UNSCH PRN IV For Magnesium 0.9 - 1.1 mg/dL; Start 11/19/16 at 11:15; Stop 11/25/16 at 12:26; Status DC Magnesium Oxide 800 mg 800 mg UNSCH PRN PO For Magnesium 1.2 - 1.6 mg/dL; Start 11/19/16 at 11:15 Magnesium Sulfate/ Sodium Chloride (Magnesium Sulfate Inj/NS Inj) 100 ml @ 50 mls/hr UNSCH PRN IV For Magnesium 1.2 - 1.6 mg/dL; Start 11/19/16 at 11:15; Stop 11/25/16 at 12:27; Status DC Potassium Phosphate 2000 mg 2,000 mg Q4H PRN PO For Phosphorus < 2.5 mg/dL; Start 11/19/16 at 11:15; Stop 11/25/16 at 12:27; Status DC Sodium Phosphate/ Sodium Chloride (Sodium Phosphate Inj/NS 250 ml Inj) 250 ml @ 42 mls/hr UNSCH PRN IV For Phosphorus < 2.5 mg/dL; Start 11/19/16 at 11:15; Stop 11/25/16 at 12:27; Status DC Potassium Chloride (KCl 40 Meq/30 ml Liq) 40 meq UNSCH PRN PO/TUBE SEE LABEL COMMENTS; Start 11/19/16 at 11:15; Stop 11/25/16 at 12:27; Status DC Potassium Phosphate 2000 mg 2,000 mg UNSCH PRN PO/TUBE SEE LABEL COMMENTS; Start 11/19/16 at 11:15; Stop 11/25/16 at 12:27; Status DC Potassium Phosphate 30 mmol/ Sodium Chloride 260 ml @ 42 mls/hr UNSCH PRN IV SEE LABEL COMMENTS; Start 11/19/16 at 11:15; Stop 11/25/16 at 12:27; Status DC Vancomycin HCl/ Sodium Chloride (Vancomycin Inj/ NS 250 ml Inj) 262.5 ml @ 250 mls/hr Q12H IV Last administered on 11/21/16 10:46; Start 11/21/16 at 11:00; Stop 11/21/16 at 11:58; Status DC Miscellaneous Information SPECIFIC LAB TO BE DRAWN:VA... ONCE ONCE XX ; Start 11/21/16 at 22:45; Stop 11/21/16 at 22:46; Status Cancel Vancomycin HCl/ Sodium Chloride (Vancomycin Inj/ NS 500 ml Inj) 515 ml @ 250 mls/hr Q12H IV Last administered on 11/23/16 08:29; Start 11/21/16 at 21:00; Stop 11/23/16 at 11:03; Status DC Miscellaneous Information SPECIFIC LAB TO BE DRAWN:VANCOMYCIN TROUGH DATE TO... ONCE ONCE XX Last administered on 11/23/16 08:29; Start 11/23/16 at 08:45; Stop 11/23/16 at 08:46; Status DC Azithromycin/ Sodium Chloride (Zithromax Inj/ NS 250 ml Inj) 250 ml @ 250 mls/ hr Q24H IV Last administered on 11/25/16 20:30; Start 11/21/16 at 20:00; Stop 11/26/16 at 12:13; Status DC Insulin Detemir (Levemir Inj) 10 units HS SQ Last administered on 11/23/16 21: 40; Start 11/22/16 at 21:00; Stop 11/24/16 at 09:58; Status DC Methylprednisolone Sodium Succinate (SoluMEDROL INJ) 40 mg BID IV PUSH Last administered on 11/23/16 08:07; Start 11/22/16 at 21:00; Stop 11/23/16 at 15:00 ; Status DC Albuterol/ Ipratropium 1 ampule 1 ampule TID NEB NEB Last administered on 11/27 07:39; Start 11/22/16 at 20:00 Vancomycin HCl/ Sodium Chloride (Vancomycin Inj/ NS 500 ml Inj) 517.5 ml @ 250 mls/hr Q12H IV Last administered on 11/26/16 09:07; Start 11/23/16 at 21:00; Stop 11/26/16 at 12:13; Status DC Miscellaneous Information SPECIFIC LAB TO BE TERRELL... ONCE ONCE XX ; Start at 08:45; Stop 11/25/16 at 08:46; Status DC Methylprednisolone Sodium Succinate (SoluMEDROL INJ) 40 mg DAILY IV PUSH Last administered on 11/25/16 08:09; Start 11/24/16 at 09:00; Stop 11/25/16 at 16:43 ; Status DC Insulin Detemir (Levemir Inj) 15 units HS SQ Last administered on 11/26/16 21: 34; Start 11/24/16 at 21:00 Miscellaneous Information SPECIFIC LAB TO BE TERRELL... ONCE ONCE XX Last administered on 11/25/16 20:45; Start 11/25/16 at 20:45; Stop 11/25/16 at 20:46 ; Status DC Prednisone (Deltasone) 20 mg DAILY PO Last administered on 11/27/16 08:55; Start 11/26/16 at 09:00 Miscellaneous Information SPECIFIC LAB TO BE TERRELL... ONCE ONCE XX ; Start at 08:45; Stop 11/27/16 at 08:46; Status DC Ciprofloxacin (Cipro) 500 mg Q12HR PO Last administered on 11/27/16 08:56; Start 11/26/16 at 21:00 Lactobacillus Acidophilus (Lactinex) 1 tab Q12HR PO Last administered on 08:55; Start 11/26/16 at 21:00 A/P Assessment and Plan A/P - acute hypoxemic respiratory failure due to right upper lobe pneumonia/ COPD exacerbation- improved. continue with antibiotic and steroid- on neb treatment- failed the walk test; will consult case management for home oxygen and HHC. -sepsis due to pneumonia; continue Abx as noted above -hypertension; continue metoprolol and norvasc- -diabetes mellitus; resume home regimen. -DVT/GI prophylaxis with Lovenox and PPI Discharge Planning dc home today if cleared by pulmonary and when home oxygen has been set up. f/u with pcp and pulmonary. see med list. d/w the patient and his . d/w the case management. d/w the RN. time spent 32 min. Trevor Acuna MD Nov 27, 2016 12:00
[2016-11-27] MEDS ORDERED: SYMB160A INH (12:05)
[2016-11-27] MEDS ORDERED: PRED5TAB PO ×3 (12:05→13:33)
[2016-11-27] MEDS ORDERED: VENTAER INH (12:05)
[2016-11-27] MEDS ORDERED: IPRASOL NEB (12:05)
[2016-11-27] MEDS ORDERED: CIPR-9 PO ×2 (12:05→13:33)
[2016-11-27] MEDS ORDERED: NEBULIZER1 MI1 (12:06)
[2016-11-27] MEDS ORDERED: OXYGENTANK NAS.CANULA (12:06)
--- NOTE | 2016-11-27 12:07 | HHI.DCPOC ---
Discharge Care Plan Diagnosis: (1) COPD (chronic obstructive pulmonary disease) Your Health Problems Are: Cough Shortness of Breath Goals to Promote Your Health * To prevent worsening of your condition and complications * To maintain your health at the optimal level Directions to Meet Your Goals Take your medications as prescribed Follow your dietary instruction Follow activity as directed Keep your appointments as scheduled Take your immunizations and boosters as scheduled If your symptoms worsen call your PCP, if no PCP go to Urgent Care Center or Emergency Room Smoking is Dangerous to Your Health. Avoid second hand smoke Call the 24-hour hour crisis hotline for domestic abuse at Trevor Acuna MD Nov 27, 2016 12:07
--- NOTE | 2016-11-27 12:08 | HHI.DS ---
Discharge Summary Admission Date Nov 16, 2016 at 21:35 Discharge Date: Nov 27, 2016 Admitting Diagnosis pneumonia, sepsis, kidney injury (1) Sepsis ICD Code: A41.9 Diagnosis: Principal (2) PNA (pneumonia) ICD Code: J18.9 Diagnosis: Principal (3) Renal insufficiency ICD Code: N28.9 Diagnosis: Secondary (4) Hypokalemia ICD Code: E87.6 Diagnosis: Secondary (5) DM (diabetes mellitus) ICD Code: E11.9 Diagnosis: Secondary Procedures none Brief History - From Admission This is a 71-year-old male with a PMH of HTN, COPD, Hyperlipidemia and DM was brought to the ER with complaints of cough, SOB and fever at home of 100.3. States symptoms started approx 3 days ago w/ generalized malaise, now progressively worse. On arrival, BP 126/59, HR 86, O2 sat 88% on RA, Temp 101.0. WBC 15. K+ 3.0. Creatinine 1.60, no previous labs for comparison. Lactic Acid 1.6. CXR w/ RUL consolidation. CTA Chest w/ no PE, RUL consolidation present. S/p Blood/Sputum Culture in ER and Rocephin/Zithro. Pt currently without complaints. CBC/BMP: 11/24/16 0344 11/24/16 0344 Significant Findings Laboratory Tests Test 11/25/16 20:59 Vancomycin Level Trough 14.4 MCG/ML (5.0-10.0) Imaging Last Impressions Chest X-Ray 11/25/16 0800 Signed Impressions: Service Date/Time: Friday, November 25, 2016 08:23 - CONCLUSION: Persistent right upper lobe consolidation or atelectasis. There does appear to be some improvement on the current exam. Ralph Smith MD CT Angiography 11/16/16 0000 Signed Impressions: Service Date/Time: Wednesday, November 16, 2016 20:34 - CONCLUSION: No evidence of pulmonary embolism. Consolidating airspace disease in the right upper lobe. Mild subsegmental air space disease in both lower lobes. Sacha Walls MD PE at Discharge GENERAL: with some sob and cough CARDIOVASCULAR: Regular rate and regular rhythm without murmurs, gallops, or rubs. RESPIRATORY: better air entry present GASTROINTESTINAL: Abdomen soft, non-tender, nondistended. Normal, active bowel sounds MUSCULOSKELETAL: Extremities without clubbing, cyanosis, or edema. NEURO: Alert & Oriented x4 to person, place, time, situation. Moves all ext x4 Hospital Course - acute hypoxemic respiratory failure due to right upper lobe pneumonia/ COPD exacerbation- improved. continue with antibiotic and steroid- on neb treatment- failed the walk test; will consult case management for home oxygen and HHC. -sepsis due to pneumonia; continue Abx as noted above -hypertension; continue metoprolol and norvasc- -diabetes mellitus; resume home regimen. -DVT/GI prophylaxis with Lovenox and PPI Pt Condition on Discharge: Fair Discharge Disposition: Disch w/ Home Health Serv Discharge Time: > 30 minutes Discharge Instructions DIET: Follow Instructions for: Heart Healthy Diet, Diabetic Diet Activities you can perform: Regular-No Restrictions Follow up Referrals: PCP Follow-up Pulmonology New Medications: Albuterol 18 GM Inh (Ventolin Hfa 18 GM Inh) 90 Mcg/Act Aer 2 PUFF INH Q4-6H PRN SHORTNESS OF BREATH #1 Ref 0 INHALER Nebulizer (Nebulizer) 1 Mis Mis 1 EA .ROUTE DIRECTED Breathing Treatment #1 Ref 0 EA Oxygen tank (Oxygen tank) 1 Ea Tank 2 LITER EDWAR.CANULA CONTINUOUS Oxygen Concentrator Portable Gaseous 2 L/min via Nasal Cannula Continuous For 99 months HYPOXEMIA PREVENTION #2 CYLINDER Prednisone (Prednisone) 5 Mg Tab 5 MG PO DIRECTED 20 mg po daily for two days then 10 mg po daily for two days then 5 mg po daily for two days then stop. copd Days 8 Ref 0 TAB Budesonide-Formoterol Inh (Symbicort Inh) 160-4.5 Mcg/Act Aero 2 PUFF INH Q12HR copd #1 Ref 0 INHALER Ciprofloxacin (Cipro) 500 Mg Tab 500 MG PO Q12HR infection Days 5 Ref 0 TAB Ipratropium-Albuterol Neb (Duoneb) 0.5-2.5 Mg/3 Ml Neb 1 AMPULE NEB Q6HR PRN SOB/WHEEZING Days 14 Ref 0 ML Continued Medications: Amlodipine (Amlodipine) 10 Mg Tab 10 MG PO DAILY Blood Pressure Management #30 Ref 0 TAB Gabapentin (Gabapentin) 100 Mg Cap 100 MG PO BID #60 Ref 0 CAP Glipizide (Glipizide) 5 Mg Tab 5 MG PO DAILY Take 30 minutes before a meal Blood Sugar Management #30 Ref 0 TAB Hydralazine (Hydralazine) 25 Mg Tab 25 MG PO BID Take with a meal Blood Pressure Management #60 Ref 0 TAB Hydrochlorothiazide (Hydrochlorothiazide) 50 Mg Tab 50 MG PO DAILY #60 Ref 0 TAB Metformin (Metformin) 500 Mg Tab 500 MG PO BIDPC With meals Blood Sugar Management #60 Ref 0 TAB Metoprolol Tartrate (Metoprolol Tartrate) 100 Mg Tab 100 MG PO BID #60 Ref 0 TAB Montelukast (Montelukast) 10 Mg Tab 10 MG PO DAILY #30 Ref 0 TAB Omeprazole (Omeprazole) 20 Mg Tab 20 MG PO BID #30 Ref 0 TAB Potassium Chloride Microencaps (Potassium Chloride Microencaps) 10 Meq Tab 10 MEQ PO DAILY Electrolyte Replacement #30 Ref 0 TAB Primidone (Primidone) 50 Mg Tab 50 MG PO HS Control Seizures #60 Ref 0 TAB Primidone (Primidone) 50 Mg Tab 100 MG PO DAILY@0600 Control Seizures #120 Ref 0 TAB Trevor Acuna MD Nov 27, 2016 12:08 Trevor Acuna MD Nov 27, 2016 12:08
--- NOTE | 2016-11-27 12:08 | HHI.FF ---
Face to Face Verification Diagnosis: (1) Pneumonia (2) COPD (chronic obstructive pulmonary disease) Physical Therapy Order: Evaluate and Treat Home Health Nursing Order: Medical education Signs/symptoms of disease process Oxygen administration education Medication education-adverse effect Nursing assessment with vital signs I have seen patient Richar Rose on 11/27/16. My clinical findings support the need for the requested home health care services because: Ltd mobility - disease progression Patient has SOB I certify that my clinical findings support that this patient is homebound because: Hx COPD- exertion dyspnea/weakness Trevor Acuna MD Nov 27, 2016 12:08
[2016-11-27] MEDS: ENOXAPARIN SODIUM 40 MG/0.4 ML SYRINGE SQ SCH (14:17)
[2016-11-27] MEDS: INSULIN DETEMIR 100 UNITS/ML VIAL SQ SCH (22:01)
[2016-11-28 04:15] VITALS: BP 133/76; PULSE 60; RESP 18; TEMP 97.5; O2SAT 94
[2016-11-28] MEDS: PRIMIDONE 50 MG TAB PO SCH (05:35)
[2016-11-28] MEDS: INSULIN ASPART SUPPLEMENTAL SCALE SQ SCH ×2 (06:07→12:08)
[2016-11-28 08:00] VITALS: BP 192/89; PULSE 77; RESP 20; TEMP 98.5; O2SAT 93
[2016-11-28] MEDS: guaiFENesin E.R. 600 MG TAB PO SCH (08:04)
[2016-11-28] MEDS: MONTELUKAST SODIUM 10 MG TAB PO SCH (08:04)
[2016-11-28] MEDS: GABAPENTIN 100 MG CAP PO SCH (08:04)
[2016-11-28] MEDS: predniSONE 20 MG TAB PO SCH (08:04)
[2016-11-28] MEDS: METOPROLOL TARTRATE 50 MG TAB PO SCH ×2 (08:05→12:07)
[2016-11-28] MEDS: SODIUM CHLORIDE 0.9% FLUSH 5 ML FLUSH FLUSH SCH (08:05)
[2016-11-28] MEDS: BUDESONIDE-FORMOTEROL 160/4.5 MCG INHALER INH SCH (08:05)
[2016-11-28] MEDS: PANTOPRAZOLE SOD 20 MG DELAYED RELEASE TAB PO SCH (08:05)
[2016-11-28] MEDS: LACTOBACILLUS ACIDOPHILUS TAB PO SCH (08:05)
[2016-11-28] MEDS: CIPROFLOXACIN 500 MG TAB PO SCH (08:05)
[2016-11-28] MEDS: hydrALAZINE HCL 25 MG TAB PO SCH (08:05)
[2016-11-28 09:16] VITALS: O2SAT 98
[2016-11-28] MEDS: RESP: ALBUTEROL 2.5 MG/IPRATROPIUM 0.5 MG NEB (SCH) NEB ×2 (09:16→14:04)
[2016-11-28 09:48] VITALS: PULSE 70
--- NOTE | 2016-11-28 11:17 | HHI.PR ---
Subjective Remarks sitting on the chair comfortably with no distress. no new complaints. wants to go home. at the bedside. Objective Vitals Vital Signs Date Time Temp Pulse Resp B/P Pulse Ox O2 Delivery O2 Flow Rate FiO2 11/28/16 09:48 70 11/28/16 09:16 98 Nasal Cannula 4.00 11/28/16 08:53 Nasal Cannula 4.00 45 11/28/16 08:00 98.5 77 20 192/89 93 11/28/16 04:15 97.5 60 18 133/76 94 11/27/16 23:28 98.3 56 18 149/88 95 11/27/16 20:30 Nasal Cannula 4.00 11/27/16 20:27 97.7 67 18 143/73 93 11/27/16 20:25 66 11/27/16 19:21 95 Nasal Cannula 4.00 11/27/16 16:00 98.7 61 22 132/69 96 11/27/16 12:00 97.4 56 20 133/67 93 I/O 11/27/16 11/27/16 11/27/16 11/28/16 11/28/16 11/28/16 07:00 15:00 23:00 07:00 15:00 23:00 Intake Total 360 ml 480 ml 480 ml 940 ml Output Total 4 ml Balance 360 ml 480 ml 480 ml 936 ml Intake Oral 360 ml 480 ml 480 ml 940 ml Output Urine Total 4 ml # Voids 3 2 3 # Bowel Movements 0 0 0 0 Result Diagram: 11/24/16 0344 11/24/16 0344 Imaging Last Impressions Chest X-Ray 11/25/16 0800 Signed Impressions: Service Date/Time: Friday, November 25, 2016 08:23 - CONCLUSION: Persistent right upper lobe consolidation or atelectasis. There does appear to be some improvement on the current exam. Ralph Smith MD CT Angiography 11/16/16 0000 Signed Impressions: Service Date/Time: Wednesday, November 16, 2016 20:34 - CONCLUSION: No evidence of pulmonary embolism. Consolidating airspace disease in the right upper lobe. Mild subsegmental air space disease in both lower lobes. Sacha Walls MD Objective Remarks GENERAL: with some sob and cough CARDIOVASCULAR: Regular rate and regular rhythm without murmurs, gallops, or rubs. RESPIRATORY: better air entry present GASTROINTESTINAL: Abdomen soft, non-tender, nondistended. Normal, active bowel sounds MUSCULOSKELETAL: Extremities without clubbing, cyanosis, or edema. NEURO: Alert & Oriented x4 to person, place, time, situation. Moves all ext x4 Procedures none Medications and IVs Current Medications Ceftriaxone Sodium 1000 mg/ Sodium Chloride 25 ml @ 50 mls/hr ONCE ONCE IV Last administered on 11/16/16 20:10; Start 11/16/16 at 20:00; Stop 11/16/16 at 20: 29; Status DC Azithromycin 500 mg/Sodium Chloride 250 ml @ 250 mls/hr ONCE ONCE IV Last administered on 11/16/16 20:09; Start 11/16/16 at 20:00; Stop 11/16/16 at 20:59; Status DC Sodium Chloride (NS 1000 ml Inj) 1,000 ml @ 1,000 mls/hr Q1H IV Last administered on 11/16/16 20:27; Start 11/16/16 at 20:20; Stop 11/16/16 at 21:19; Status DC Potassium Chloride 40 meq 40 meq ONCE ONCE PO Last administered on 11/16/16 20 :27; Start 11/16/16 at 20:30; Stop 11/16/16 at 20:31; Status DC Sodium Chloride (NS 1000 ml Inj) 1,000 ml @ 999 mls/hr BOLUS ONCE IV Last administered on 11/16/16 21:04; Start 11/16/16 at 20:30; Stop 11/16/16 at 21:30; Status DC Iohexol 73 ml 73 ml STK-MED ONCE IV Last administered on 11/16/16 20:36; Start 11/16/16 at 20:36; Stop 11/16/16 at 20:37; Status DC Ceftriaxone Sodium 1000 mg/ Sodium Chloride 100 ml @ 200 mls/hr Q24H IV ; Start 11/17/16 at 20:00; Stop 11/17/16 at 20:00; Status DC Azithromycin/ Sodium Chloride (Zithromax Inj/ NS 250 ml Inj) 250 ml @ 250 mls/ hr Q24H IV Last administered on 11/20/16 20:57; Start 11/17/16 at 21:00; Stop at 12:00; Status DC Guaifenesin (Mucinex Er) 600 mg BID PO Last administered on 11/28/16 08:04; Start 11/17/16 at 09:00 Budesonide/ Formoterol Fumarate (Symbicort 160-4.5 Inh) 2 puff Q12HR INH Last administered on 11/28/16 08:05; Start 11/16/16 at 21:45 Albuterol/ Ipratropium (Duoneb Neb) 1 ampule Q4HR WHILE AWAKE NEB NEB Last administered on 11/17/16 20:12; Start 11/17/16 at 08:00; Stop 11/17/16 at 23:16; Status DC Albuterol/ Ipratropium (Duoneb Neb) 1 ampule Q2HR NEB PRN NEB SOB/WHEEZING Last administered on 11/22/16 07:36; Start 11/16/16 at 21:45 Dextrose (D50w (Vial) Inj) 25 ml UNSCH PRN IV PUSH HYPOGLYCEMIA-SEE COMMENTS; Start 11/16/16 at 21:45; Stop 11/19/16 at 06:32; Status DC Glucagon (Glucagon Inj) 1 mg UNSCH PRN OTHER HYPOGLYCEMIA-SEE COMMENTS; Start 11/16/16 at 21:45; Stop 11/19/16 at 06:32; Status DC Insulin Aspart 1 1 ACHS SLIDING SCALE SQ Last administered on 11/19/16 06:20; Start 11/17/16 at 07:00; Stop 11/19/16 at 06:30; Status DC Sodium Chloride (NS 1000 ml Inj) 1,000 ml @ 100 mls/hr Q10H IV Last administered on 11/23/16 03:31; Start 11/16/16 at 21:31; Status Hold IV Flush (NS Flush) 2 ml UNSCH PRN FLUSH FLUSH AFTER USING IV ACCESS; Start 11/16/16 at 21:45 IV Flush (NS Flush) 2 ml BID FLUSH Last administered on 11/28/16 08:05; Start 11/17/16 at 09:00 Ondansetron HCl (Zofran Inj) 4 mg Q6H PRN IVP NAUSEA OR VOMITING; Start at 21:45 Bisacodyl (Dulcolax Supp) 10 mg DAILY PRN [place] CONSTIPATION; Start 11/16/16 at 21: 45 Acetaminophen (Tylenol) 650 mg Q6H PRN PO FEVER/PAIN SCALE 1 TO 2 Last administered on 11/17/16 19:42; Start 11/16/16 at 21:45 Acetaminophen/ Hydrocodone Bitart (Arboles 5-325 Mg) 1 tab Q4H PRN PO PAIN SCALE 3 TO 5; Start 11/16/16 at 21:45 Morphine Sulfate (Morphine Inj) 2 mg Q3H PRN IV Pain 6-10; Start 11/16/16 at 21: 45 Amlodipine Besylate (Norvasc) 10 mg DAILY PO Last administered on 11/28/16 08: 06; Start 11/17/16 at 09:00 Gabapentin (Neurontin) 100 mg BID PO Last administered on 11/28/16 08:04; Start 11/17/16 at 09:00 Hydralazine HCl (Apresoline) 25 mg BID PO Last administered on 11/28/16 08:05 ; Start 11/17/16 at 09:00 Metoprolol Tartrate (Lopressor) 100 mg BID PO Last administered on 11/18/16 08: 24; Start 11/17/16 at 09:00; Stop 11/18/16 at 13:19; Status DC Montelukast Sodium (Singulair) 10 mg DAILY PO Last administered on 11/28/16 08 :04; Start 11/17/16 at 09:00 Pantoprazole Sodium (Protonix) 20 mg BID PO Last administered on 11/28/16 08: 05; Start 11/17/16 at 09:00 Primidone (Mysoline) 50 mg HS PO Last administered on 11/27/16 21:59; Start at 21:00 Primidone (Mysoline) 100 mg DAILY@0600 PO Last administered on 11/28/16 05:35 ; Start 11/17/16 at 06:00 Diphenhydramine HCl 25 mg 25 mg ONCE ONCE PO Last administered on 11/17/16 02: 35; Start 11/17/16 at 02:30; Stop 11/17/16 at 02:33; Status DC Potassium Chloride 100 ml @ 50 mls/hr Q2H IV Last administered on 11/17/16 11: 24; Start 11/17/16 at 08:00; Stop 11/17/16 at 11:59; Status DC Magnesium Sulfate/ Dextrose (Magnesium Sulfate 1 Gm Premix) 100 ml @ 100 mls/ hr ONCE ONCE IV Last administered on 11/17/16 14:01; Start 11/17/16 at 09:15; Stop 11/17/16 at 10:21; Status DC Benzonatate 200 mg 200 mg Q8H PRN PO COUGH Last administered on 11/22/16 21:42 ; Start 11/17/16 at 09:15 Pharmacy Profile Note 0 ml @ 0 mls/hr UNSCH OTHER ; Start 11/17/16 at 15:45; Stop 11/26/16 at 12:12; Status DC Piperacillin Sod/ Tazobactam Sod (Zosyn 4.5 Gm Premix) 100 ml @ 200 mls/hr Q6H IV Last administered on 11/26/16 11:49; Start 11/17/16 at 17:00; Stop 11/26/16 at 12:13; Status DC Tuberculin PPD (Ppd Inj) 5 units ONCE ONCE ID Last administered on 11/17/16 17 :46; Start 11/17/16 at 17:00; Stop 11/17/16 at 17:01; Status DC Miscellaneous Information 1 1 Q24H OTHER Last administered on 11/20/16 17:00; Start 11/18/16 at 17:00; Stop 11/20/16 at 17:01; Status DC Vancomycin HCl/ Sodium Chloride (Vancomycin Inj/ NS 500 ml Inj) 517.5 ml @ 250 mls/hr Q24H IV Last administered on 11/20/16 18:19; Start 11/17/16 at 18:00; Stop 11/20/16 at 19:12; Status DC Miscellaneous Information SPECIFIC LAB TO BE TERRELL... ONCE ONCE XX Last administered on 11/20/16 18:00; Start 11/20/16 at 17:45; Stop 11/20/16 at 17:46; Status DC Potassium Chloride (KCl) 20 meq ONCE ONCE PO Last administered on 11/17/16 21: 10; Start 11/17/16 at 21:00; Stop 11/17/16 at 21:01; Status DC Methylprednisolone Sodium Succinate (SoluMEDROL INJ) 125 mg ONCE ONCE IV PUSH Last administered on 11/17/16 21:10; Start 11/17/16 at 21:00; Stop 11/17/16 at 21: 01; Status DC Methylprednisolone Sodium Succinate 40 mg 40 mg Q6H IV PUSH Last administered on 11/22/16 14:06; Start 11/18/16 at 03:00; Stop 11/22/16 at 17:13; Status DC Calcium Gluconate/ Sodium Chloride (Calcium Gluconate Inj/NS Inj) 110 ml @ 110 mls/hr ONCE ONCE IV Last administered on 11/17/16 22:54; Start 11/17/16 at 22: 00; Stop 11/17/16 at 22:59; Status DC Albuterol/ Ipratropium (Duoneb Neb) 1 ampule Q4HR NEB NEB Last administered on 11/21/16 23:45; Start 11/18/16 at 00:00; Stop 11/22/16 at 00:00; Status DC Furosemide (Lasix Inj) 20 mg ONCE ONCE IV PUSH Last administered on 11/18/16 01:04; Start 11/18/16 at 00:45; Stop 11/18/16 at 00:46; Status DC Guaifenesin/ Dextromethorphan (Robitussin Dm 200-20 Mg/10 ml Liq) 10 ml Q4H PRN PO cough; Start 11/18/16 at 00:45 Temazepam (Restoril) 7.5 mg ONCE ONCE PO Last administered on 11/18/16 01:51; Start 11/18/16 at 01:45; Stop 11/18/16 at 01:46; Status DC Potassium Chloride (KCl) 40 meq NOW ONCE PO Last administered on 11/18/16 08: 24; Start 11/18/16 at 08:15; Stop 11/18/16 at 08:16; Status DC Enoxaparin Sodium (Lovenox Inj) 40 mg Q24H SQ Last administered on 11/27/16 14 :17; Start 11/18/16 at 14:00 Metoprolol Tartrate (Lopressor) 50 mg QID PO Last administered on 11/28/16 08: 05; Start 11/18/16 at 18:00 Zolpidem Tartrate (Ambien) 5 mg HS PRN PO insomnia Last administered on 23:59; Start 11/18/16 at 18:00 Potassium Chloride (KCl) 20 meq NOW ONCE PO Last administered on 11/19/16 06: 24; Start 11/19/16 at 06:15; Stop 11/19/16 at 06:16; Status DC Potassium Chloride (KCl) 20 meq ONCE ONCE PO Last administered on 11/19/16 06: 24; Start 11/19/16 at 06:30; Stop 11/19/16 at 06:31; Status DC Potassium Chloride (KCl) 20 meq ONCE ONCE PO ; Start 11/19/16 at 06:30; Stop 11/19/16 at 06:31; Status Cancel Insulin Aspart (NovoLOG SUPPLEMENTAL SCALE) 1 ACHS SQ Last administered on 11/27 22:03; Start 11/19/16 at 07:00 Dextrose (D50w (Vial) Inj) 25 ml UNSCH PRN IV HYPOGLYCEMIA-SEE COMMENTS; Start 11/19/16 at 06:30 Glucagon 1 mg 1 mg UNSCH PRN IM/SQ HYPOGLYCEMIA-SEE COMMENTS; Start 11/19/16 at 06:30 Potassium Chloride 100 ml @ 50 mls/hr Q2H PRN IV For Potassium 2.8 - 3.2 mEq/L ; Start 11/19/16 at 11:15; Stop 11/25/16 at 12:25; Status DC Potassium Chloride (KCl 20 Meq Premix Inj) 100 ml @ 50 mls/hr Q2H PRN IV For Potassium 2.8 - 3.2 mEq/L Last administered on 11/19/16 15:55; Start 11/19/16 at 11:15; Stop 11/25/16 at 12:25; Status DC Potassium Chloride 40 meq 40 meq UNSCH PRN PO/NG For Potassium 3.3 - 3.5 mEq/L Last administered on 11/19/16 18:03; Start 11/19/16 at 11:15; Stop 11/25/16 at 12 :27; Status DC Potassium Chloride 100 ml @ 25 mls/hr UNSCH PRN IV For Potassium 3.3 - 3.5 mEq /L; Start 11/19/16 at 11:15; Stop 11/25/16 at 12:26; Status DC Potassium Chloride 100 ml @ 50 mls/hr Q2H PRN IV For Potassium 3.3 - 3.5 mEq/L ; Start 11/19/16 at 11:15; Stop 11/25/16 at 12:26; Status DC Magnesium Sulfate/ Sodium Chloride (Magnesium Sulfate Inj/NS Inj) 100 ml @ 50 mls/hr UNSCH PRN IV For Magnesium 0.9 - 1.1 mg/dL; Start 11/19/16 at 11:15; Stop 11/25/16 at 12:26; Status DC Magnesium Oxide 800 mg 800 mg UNSCH PRN PO For Magnesium 1.2 - 1.6 mg/dL; Start 11/19/16 at 11:15 Magnesium Sulfate/ Sodium Chloride (Magnesium Sulfate Inj/NS Inj) 100 ml @ 50 mls/hr UNSCH PRN IV For Magnesium 1.2 - 1.6 mg/dL; Start 11/19/16 at 11:15; Stop 11/25/16 at 12:27; Status DC Potassium Phosphate 2000 mg 2,000 mg Q4H PRN PO For Phosphorus < 2.5 mg/dL; Start 11/19/16 at 11:15; Stop 11/25/16 at 12:27; Status DC Sodium Phosphate/ Sodium Chloride (Sodium Phosphate Inj/NS 250 ml Inj) 250 ml @ 42 mls/hr UNSCH PRN IV For Phosphorus < 2.5 mg/dL; Start 11/19/16 at 11:15; Stop 11/25/16 at 12:27; Status DC Potassium Chloride (KCl 40 Meq/30 ml Liq) 40 meq UNSCH PRN PO/TUBE SEE LABEL COMMENTS; Start 11/19/16 at 11:15; Stop 11/25/16 at 12:27; Status DC Potassium Phosphate 2000 mg 2,000 mg UNSCH PRN PO/TUBE SEE LABEL COMMENTS; Start 11/19/16 at 11:15; Stop 11/25/16 at 12:27; Status DC Potassium Phosphate 30 mmol/ Sodium Chloride 260 ml @ 42 mls/hr UNSCH PRN IV SEE LABEL COMMENTS; Start 11/19/16 at 11:15; Stop 11/25/16 at 12:27; Status DC Vancomycin HCl/ Sodium Chloride (Vancomycin Inj/ NS 250 ml Inj) 262.5 ml @ 250 mls/hr Q12H IV Last administered on 11/21/16t 10:46; Start 11/21/16 at 11:00; Stop 11/21/16 at 11:58; Status DC Miscellaneous Information SPECIFIC LAB TO BE DRAWN:[facility]... ONCE ONCE XX ; Start 11/21/16 at 22:45; Stop 11/21/16 at 22:46; Status Cancel Vancomycin HCl/ Sodium Chloride (Vancomycin Inj/ NS 500 ml Inj) 515 ml @ 250 mls/hr Q12H IV Last administered on 11/23/16 08:29; Start 11/21/16 at 21:00; Stop 11/23/16 at 11:03; Status DC Miscellaneous Information SPECIFIC LAB TO BE DRAWN:VANCOMYCIN TROUGH DATE TO... ONCE ONCE XX Last administered on 11/23/16 08:29; Start 11/23/16 at 08:45; Stop 11/23/16 at 08:46; Status DC Azithromycin/ Sodium Chloride (Zithromax Inj/ NS 250 ml Inj) 250 ml @ 250 mls/ hr Q24H IV Last administered on 11/25/16 20:30; Start 11/21/16 at 20:00; Stop 11/26/16 at 12:13; Status DC Insulin Detemir (Levemir Inj) 10 units HS SQ Last administered on 11/23/16 21: 40; Start 11/22/16 at 21:00; Stop 11/24/16 at 09:58; Status DC Methylprednisolone Sodium Succinate (SoluMEDROL INJ) 40 mg BID IV PUSH Last administered on 11/23/16 08:07; Start 11/22/16 at 21:00; Stop 11/23/16 at 15:00 ; Status DC Albuterol/ Ipratropium 1 ampule 1 ampule TID NEB NEB Last administered on 11/28 09:16; Start 11/22/16 at 20:00 Vancomycin HCl/ Sodium Chloride (Vancomycin Inj/ NS 500 ml Inj) 517.5 ml @ 250 mls/hr Q12H IV Last administered on 11/26/16 09:07; Start 11/23/16 at 21:00; Stop 11/26/16 at 12:13; Status DC Miscellaneous Information SPECIFIC LAB TO BE TERRELL... ONCE ONCE XX ; Start at 08:45; Stop 11/25/16 at 08:46; Status DC Methylprednisolone Sodium Succinate (SoluMEDROL INJ) 40 mg DAILY IV PUSH Last administered on 11/25/16 08:09; Start 11/24/16 at 09:00; Stop 11/25/16 at 16:43 ; Status DC Insulin Detemir (Levemir Inj) 15 units HS SQ Last administered on 11/27/16 22: 01; Start 11/24/16 at 21:00 Miscellaneous Information SPECIFIC LAB TO BE TERRELL... ONCE ONCE XX Last administered on 11/25/16 20:45; Start 11/25/16 at 20:45; Stop 11/25/16 at 20:46 ; Status DC Prednisone (Deltasone) 20 mg DAILY PO Last administered on 11/28/16 08:04; Start 11/26/16 at 09:00 Miscellaneous Information SPECIFIC LAB TO BE TERRELL... ONCE ONCE XX ; Start at 08:45; Stop 11/27/16 at 08:46; Status DC Ciprofloxacin (Cipro) 500 mg Q12HR PO Last administered on 11/28/16 08:05; Start 11/26/16 at 21:00 Lactobacillus Acidophilus (Lactinex) 1 tab Q12HR PO Last administered on 08:05; Start 11/26/16 at 21:00 A/P Assessment and Plan A/P - acute hypoxemic respiratory failure due to right upper lobe pneumonia/ COPD exacerbation- improved. continue with antibiotic and steroid- on neb treatment- failed the repeated walk test again; consulted case management for home oxygen and HHC. -sepsis due to pneumonia; continue Abx as noted above -hypertension; continue metoprolol and norvasc- -diabetes mellitus; resume home regimen. -DVT/GI prophylaxis with Lovenox and PPI Discharge Planning dc home when home oxygen has been set up. f/u with pcp and pulmonary. see med list. d/w the patient and his . d/w the case management. previously d/w the . time spent 32 min. Trevor Acuna MD Nov 28, 2016 11:17
[2016-11-28] MEDS: ENOXAPARIN SODIUM 40 MG/0.4 ML SYRINGE SQ SCH (14:59)
--- NOTE | 2016-12-03 08:17 | MD ---
cc: Glenn SENA ADMISSION DATE: 11/16/2016 DISCHARGE DATE: 11/28/2016 BRIEF HISTORY Mr. Rose is a 71-year-old white male who presented with pneumonia and respiratory insufficiency. That was 2 weeks ago. He was in the intensive care unit for severe hypoxemia. He required high flow for about 10 days but has been gradually weaned down to 3-4 liters with sats in the lower to mid 90s. He has remained afebrile for the last week. His white count has come down to 12.1 and his CRP is only 1.36. His chest x-ray 2 days ago showed improvement in the right upper lobe infiltrate, some mild opacification at the left base. All of his cultures were negative and influenza nasal antigens were also negative. The patient is quite anxious to go home. His feels that she can take care of him and he has been stable. VITAL SIGNS: 97 degrees, 150/70, pulse is 60, respirations are 18, sat is 94% on 4 liters. NECK: Neck veins are not distended. CHEST: Reveals minimal congestion. No wheezing. HEART: Regular rhythm. No harsh murmur. ABDOMEN: Abdomen is obese but soft. He has no significant edema. I spoke to Dr. Acuna the hospitalist and the patient will be discharged from a pulmonary standpoint on oxygen at 3-4 liters continuously, a nebulizer with albuterol and Atrovent three times a day, Symbicort 2 puffs twice a day, Cipro for an additional week twice a day and prednisone taper for 10 days. The patient normally receives all of his medical care through the [facility]. I asked him to call them this week and make an appointment in the next week or two for followup including chest x-ray. I would be happy to see him back if need be and he can be referred. I also asked him to speak [facility] [place] about a pulmonary evaluation once he is completely recovered, because he has these recurrent infections annually and this was a very serious one. CT scan did reveal some apical emphysema. He may have underlying chronic lung disease that should be treated on a regular basis. He also realizes that were his condition to decline, he should come back to the emergency room for reevaluation. R. MD RAFAEL Souza/T[facility] /1:31 PM /8:10 AM
== END 2016-11-28 16:37 | disposition home health service (06) | DRG 871 ==
LOC: NEPE 19:13 → NEDA 21:35 → NEPFCDU 11-17 01:30 → N03A 11-17 18:53 → N04B 11-26 12:20
PROVIDERS: ADMIT Internal Medicine; ATTEND Internal Medicine
DX: A41.9 Sepsis, unspecified organism (principal); J18.9 Pneumonia, unspecified organism; J96.01 Acute respiratory failure with hypoxia; N17.9 Acute kidney failure, unspecified; E11.9 Type 2 diabetes mellitus without complications; E86.0 Dehydration; J44.0 Chronic obstructive pulmonary disease with (acute) lower respiratory infection; J44.1 Chronic obstructive pulmonary disease with (acute) exacerbation; E87.6 Hypokalemia; I10 Essential (primary) hypertension; E78.5 Hyperlipidemia, unspecified; K21.9 Gastro-esophageal reflux disease without esophagitis; Z79.84 Long term (current) use of oral hypoglycemic drugs; Z87.891 Personal history of nicotine dependence; G47.00 Insomnia, unspecified
CPT/HCPCS: 36600; 71010; 71275; 76937; 80048; 80053; 80202; 81001; 82565; 82805; 82948; 83605; 83735; 84132; 84155; 85007; 85025; 85027; 85610; 85730; 86140; 87040; 87070; 87205; 87449; 87641; 87804; 93005; 94150; 94620; 94640; 94664; 94667; 94668; 96365; 96368; J0456; J0610; J0696; J1650; J1815; J1940; J2543; J2920; J2930; J3370; J3475; J3480; J7030; J7040; J7050; J7512; Q9967